=== PATIENT | female | born 1985 | race Caucasian/White ===

== ENCOUNTER 2018-03-02 21:04 | Inpatient (IN) | payer MEDICAID, SELFPAY ==
[2018-03-02 21:06] VITALS: BP 159/119; PULSE 103; RESP 14; TEMP 37.3; O2SAT 100; BMI 22.1
--- NOTE | 2018-03-02 21:33 | ED.VISSUMM ---
- ER Visit Summary Date of Service: 03/02/18 Chief Complaint: Requesting detox for heroin abuse History of Present Illness: The patient is a 32 F history of heroin, crack and fentanyl abuse. Last use 1-2 days ago. Patient is requesting detox. States that she is having nausea and vomiting. Abdominal cramping. Profuse sweating. Myalgias and arthralgias. Mild headache. Physical Examination: Young female vital signs are stable except for elevated blood pressure 159/119. She does not look septic or toxic. She is diaphoretic. She is pale. She is actively nauseated holding a emesis bag to her mouth. HEENT exam unremarkable. Neck nontender. No lymphadenopathy. Lungs clear to auscultation bilaterally. Heart tachycardic rate about 105. No murmur. Regular rhythm. Abdomen is soft and nontender. Nondistended. Normal bowel sounds. No peritoneal signs. Moving all 4 extremities. Neurovascular intact. Calves nontender. No edema. Neurologically awake and alert. Anxious. No focal motor deficits. Test Results: None Emergency Department Course and Treatment: Patient's exam and history are consistent with acute withdrawal. She will be admitted for detox. Her CIWA score equals 28. Treatment Plan: Inpatient detox Disposition: I spoke to the hospitalist about admission. Impression: Acute opiate withdrawal History of heroin, crack and fentanyl abuse Requesting detox This note was generated with [employer] dictation software. It may contain incorrect words, spelling, and punctuation that were not noted in review of the chart prior to signing ED Disposition - Plan for ED Patient: Chief Complaint: Substance Abuse Referrals: NOT,DEFINED [Primary Care Provider] -
--- NOTE | 2018-03-02 21:37 | ED.DCSUM_ITS ---
- ER Visit Summary Date of Service: 03/02/18 Chief Complaint: Requesting detox for heroin abuse History of Present Illness: The patient is a 32 F history of heroin, crack and fentanyl abuse. Last use 1-2 days ago. Patient is requesting detox. States that she is having nausea and vomiting. Abdominal cramping. Profuse sweating. Myalgias and arthralgias. Mild headache. Physical Examination: Young female vital signs are stable except for elevated blood pressure 159/119. She does not look septic or toxic. She is diaphoretic. She is pale. She is actively nauseated holding a emesis bag to her mouth. HEENT exam unremarkable. Neck nontender. No lymphadenopathy. Lungs clear to auscultation bilaterally. Heart tachycardic rate about 105. No murmur. Regular rhythm. Abdomen is soft and nontender. Nondistended. Normal bowel sounds. No peritoneal signs. Moving all 4 extremities. Neurovascular intact. Calves nontender. No edema. Neurologically awake and alert. Anxious. No focal motor deficits. Test Results: None Emergency Department Course and Treatment: Patient's exam and history are consistent with acute withdrawal. She will be admitted for detox. Her CIWA score equals 28. Treatment Plan: Inpatient detox Disposition: I spoke to the hospitalist about admission. Impression: Acute opiate withdrawal History of heroin, crack and fentanyl abuse Requesting detox This note was generated with [employer] dictation software. It may contain incorrect words, spelling, and punctuation that were not noted in review of the chart pr ior to signing ED Disposition - Plan for ED Patient: Chief Complaint: Substance Abuse Referrals: NOT,DEFINED [Primary Care Provider] -
--- NOTE | 2018-03-02 21:39 | ED.RN ---
pt states that she does not take any medication on a regular basis
[2018-03-02] MEDS: Ondansetron ODT 4 MG Tablet PO (21:44)
--- NOTE | 2018-03-02 22:12 | PCM.HP.STD ---
Problem List (1) Opioid withdrawal Status: Acute History of Present Illness Date of Admission: 03/02/18 Chief Complaint: Agitation The patient is a 32 year old F with no PMH presenting for opioid withdrawal. She last injected heroin yesterday morning which was the first time she had ever injected heroin, she usually snorts. She has also used crack which she states is why she picks at her arms. She presents for detox and rehab because she is at risk of losing custody of her 4 kids. On presentation to the ER, she had nausea and an episode of vomiting as well as sweating and agitation. Past Medical History Allergies Penicillins [PCN] Allergy (Verified 03/02/18 21:21) Anaphylaxis Sulfa (Sulfonamide Antibiotics) Allergy (Verified 03/02/18 21:21) Anaphylaxis Home Medications: Ambulatory Orders Medication Instructions Recorded NK 03/02/18 Smoking Status: Current every day smoker Drugs: Heroin, - - Crack - *Family History Maternal History Items: No pertinent history Review of Systems Constitutional: Denies: Chills, Fever, Weight Change HEENT: Reports: Head Aches. Denies: Sinus Congestion, Sinus Drainage Cardiovascular: Denies: Chest Pain, Palpitations Respiratory: Denies: Cough, Shortness of breath at rest, Sputum production Gastrointestinal: Reports: Abdominal Pain. Denies: Nausea, Vomiting Genitourinary: Denies: Dysuria Musculoskeletal: Denies: Joint Pain, Joint Tenderness Skin: Reports: Lesions. Denies: Rash, Wounds Neurological: Denies: Numbness, Tingling, Focal weakness Psychiatric: Reports: Anxiety, Depression, - Hematologic/ Lymphatic: Denies: Easy Bruising, Easy Bleeding VTE Information - Inpt Only VTE Present on Admission: No Patient Problems: Active and Suspected Problems Opioid withdrawal (Acute) - Physical Exam General: Alert, Oriented x3, Cooperative, - - shaky HEENT: Atraumatic, PERRLA, EOMI, Normocephalic Oral: Moist Mucosa Neck: Supple, No JVD Lungs: Clear to auscultation, Normal air movement, No rhonchi, No wheeze, No rales Cardiovascular: Regular rate, Regular Rhythm, Normal S1, Normal S2, No murmurs Abdomen: Soft, Non Tender, Non-Distended, No Hepato-splenomegaly Extremities: No edema, Capillary Refill Less than 3 Seconds Skin: - - multiple excoriations in varying degrees of healing Musculoskeletal: No Tenderness to Palpation of Joints or Extremities Neurological: Neuro grossly intact, Sensory exam intact to light touch and pain Psych/Mental Status: Agitated, Anxious Vital Signs Temp Pulse Resp BP Pulse Ox 99.1 F 103 H 14 159/119 H 100 03/02/18 21:06 03/02/18 21:06 03/02/18 21:06 03/02/18 21:06 03/02/18 21:06 Oxygen Delivery Method Room Air Weight: 117 lb Body Mass Index (BMI) 22.1 Assessment/Plan All Active Problems Opioid withdrawal (Acute) 1. Opioid withdrawal - Will initiate the opioid withdrawal protocol with buprenorphine taper and librium prn - New vision will see in the am - She states that her mother has set up inpatient rehab when she is discharged DVT: Ambulate Diet: Regular Code Visit Inpatient E&M: 00820 Init Hosp L2
[2018-03-02] MEDS: Buprenorphine HCl 2 MG TAB.SUBL SL (22:52)
[2018-03-02 22:53] VITALS: BMI 21.8
[2018-03-02 22:59] VITALS: BMI 21.8
[2018-03-02 23:03] VITALS: BP 135/96; PULSE 80; RESP 16; TEMP 36.7
[2018-03-03 02:28] LABS: Mucous, Urine 0 SEEN /hpf (<or=2+)
[2018-03-03 02:30] LABS: Color, Urine Yellow (Yellow); Glucose, Dipstick Normal (Normal); Internal QC Validated? YES +Cl - CLEAR BKGD; Ketone-Dipstick Negative (Negative); Leukocyte Esterase-Dipstick 500 /ul (Negative); Nitrite-Dipstick Negative (Negative); Occult Blood-Urine 25 /ul (Negative); Protein-Dipstick 15 mg/dl (Negative); Specific Gravity, Urine 1.015 (1.002-1.030); Urine Bilirubin Dipstick Negative (Negative); Urine Clarity Cloudy (Clear); Urine Urobilinogen Normal (Normal); Urine pH 6.5 (5.0 - 8.0)
[2018-03-03 02:31] LABS: Pregnancy, Urine Negative Negative
[2018-03-03 02:36] LABS: Bacteria 1+ /hpf (None Seen); Red Blood Cells-Urine 0-5 SEEN /hpf (0-5); Squamous Epithelial Cells - UA 10-25 SEEN /hpf (5-10); White Blood Cells 25-50 SEEN /hpf (0-5)
[2018-03-03 02:42] LABS: Amphetamine Urine VISTA NEGATIVE (<1000 ng/mL); Barbiturate Urine VISTA POSITIVE (< 200 ng/mL); Benzodiazepine Urine VISTA NEGATIVE (< 200 ng/mL); Cocaine Urine VISTA POSITIVE (< 300 ng/mL); Ecstacy Urine VISTA NEGATIVE (< 500 ng/mL); Methadone Urine VISTA NEGATIVE (< 300 ng/mL); PCP Urine VISTA NEGATIVE (< 25 ng/mL); THC Urine VISTA NEGATIVE (< 50 ng/mL); Vista UDS pH Range 7
[2018-03-03 03:09] VITALS: BP 134/65; PULSE 77; RESP 14; TEMP 36.8
[2018-03-03] MEDS: cloNIDine HCl 0.1 MG Tablet PO ×2 (03:10→18:47)
[2018-03-03] MEDS: chlordiazePOXIDE 25 MG Capsule PO ×2 (03:10→18:45)
[2018-03-03] MEDS: Methocarbamol 750 MG Tablet PO ×2 (03:10→14:12)
[2018-03-03 07:07] VITALS: BP 97/56; PULSE 72; RESP 16; TEMP 36.4
[2018-03-03] MEDS: Buprenorphine HCl 2 MG TAB.SUBL SL ×3 (07:09→21:24)
[2018-03-03 07:25] LABS: Absolute Lymphocyte Count 2.85 X10^3/ul (0.83-4.51); Absolute Neutrophil Count 2.8 X10^3/uL (2.0-7.7); Basophil# 0.04 X10^3/uL; Basophil% 0.6 % (0-1); Eosinophil# 0.59 X10^3/uL; Eosinophils% 8.3 % (0-5); Hematocrit 34.6 % (37-47); Hemoglobin 11.6 g/dl (12.0-15.0); Lymphocyte # 2.85 X10^3/ul (4.0); Lymphocyte % 39.9 % (19-41); Mean Corp Hgb Conc 33.5 g/gl (32-36); Mean Corpuscular Hgb 28.1 pg (27.0-32.0); Mean Corpuscular Volume 83.8 fL (81-99); Mean Platelet Vol. 9.2 fl (6.2-12.0); Monocyte# 0.86 X10^3/uL; Neutrophil # 2.81 X10^3/uL (2.7-7.7); Neutrophil % 39.2 % (47-70); Platelet Count 373 K/mm3 (150-450); RBC Distribution Width CV 15.5 % (11.6-14.6); RBC Distribution Width SD 46.9 fl (35.1-43.9); Red Blood Count 4.13 M/mm3 (4.2-5.4); White Blood Count 7.2 K/mm3 (4.4-11.0)
[2018-03-03 07:31] LABS: POSITIVE COUNT NO; POSITIVE DIFFERENTIAL NO; POSITIVE MORPHOLOGY NO
[2018-03-03] MEDS: hydrOXYzine PAM 25 MG Capsule 50 MG PO ×2 (07:39→14:12)
[2018-03-03 07:44] LABS: Anion Gap 6 (5-15); BUN 15 mg/dL (7-18); BUN/Creat Ratio 22.4 RATIO (10-20); Calcium,Total 8.6 mg/dL (8.5-10.1); Chloride 102 mmol/L (98-107); Creatinine, Serum 0.67 mg/dL (0.55-1.02); EST Glomerular Filtration Rate 108 mL/min (>60); Est Glom Filt Rate - Afr Amer 131 mL/min (>60); Estimated Creatinine Clearance 90.96 ml/min; Glucose 78 mg/dL (74-106); Potassium 3.7 mmol/L (3.5-5.1); Sodium Level 140 mmol/L (136-145)
--- NOTE | 2018-03-03 07:48 | PCM.PN.HOSP ---
Patient Problems: Active and Suspected Problems Opioid withdrawal (Acute) Subjective: Patient is a 32-year-old gentleman with history of opioid dependence who presented with lower extremity cramps as well as abdominal pain. An assessment of acute opioid withdrawal was made patient admitted to regular nursing floor for subsequent management. Diagnostic data obtained on admission consistent with UTI. Patient seen this morning still complains of abdominal cramps as well as leg pain. Objective: GENERAL:Somewhat lethargic HEENT: Atraumatic; moist oral mucosa EYES; Anicteric, Normal Conjunctiva NECK; supple, normal thyroid, no distended JVD. RESPIRATORY: Diminished to auscultation bilaterally, CARDIOVASCULAR: Regular S1 S2, no audible murmurs GI: soft, non-tender, normoactive bowel sounds, : No Renal angle tenderness; No kc EXTREMITIES: No edema, no clubbing, no cyanosis. MUSCULOSKELTAL: No Joint Tenderness; no muscle waisting NEURO: Awake; no lateralizing signs. SKIN: No Rash PSYCH; Normal affect Vitals/I&O's: Vital Signs Temp Pulse Resp BP Pulse Ox 97.5 F L 72 16 97/56 L 100 03/03/18 07:07 03/03/18 07:07 03/03/18 07:07 03/03/18 07:07 03/02/18 21:06 Oxygen Delivery Method Room Air Weight: 52.4 kg Body Mass Index (BMI) 21.8 Intake and Output for Last 24 Hours 03/01/18 03/02/18 03/03/18 23:59 23:59 23:59 Intake Total 240 / 240 Balance 240 / 240 Laboratory Results 03/03/18 01:45: Urine Opiates Screen NEGATIVE, Urine Methadone Screen NEGATIVE, Ur Barbiturates Screen POSITIVE H, Ur Phencyclidine Scrn NEGATIVE, Ur Amphetamines Screen NEGATIVE, U Methamphetamin-MDMA NEGATIVE, U Benzodiazepines Scrn NEGATIVE, Urine Cocaine Screen POSITIVE H, U Cannabinoids Screen NEGATIVE, Ur Drug Screen Comment 03/03/18 01:45: Urine Test Negative 03/03/18 01:45: Urine Color Yellow, Urine Clarity Cloudy, Urine pH 6.5, Ur Specific [place] 1.015, Urine Protein 15 H, Urine Glucose (UA) Normal, Urine Ketones Negative, Urine Occult Blood 25 H, Urine Nitrite Negative, Urine Bilirubin Negative, Urine Urobilinogen Normal, Ur Leukocyte Esterase 500 H, Urine RBC 0-5 SEEN, Urine WBC 25-50 SEEN, Ur Squamous Epith Cells 10-25 SEEN, Urine Bacteria 1+, Urine Mucus 0 SEEN 03/03/18 07:02: WBC 7.2, RBC 4.13 L, Hgb 11.6 L, Hct 34.6 L, MCV 83.8, MCH 28.1, MCHC 33.5, RDW 15.5 H, RDW Differential 46.9 H, Plt Count 373, MPV 9.2, Immature Gran % (Auto) 0.000, Neut % (Auto) 39.2 L, Lymph % (Auto) 39.9, [place] % (Auto) 12.0 H, Eos % (Auto) 8.3 H, Baso % (Auto) 0.6, Absolute Neuts (auto) 2.8, Absolute Lymphs (auto) 2.85, Total Counted Not Reportable 03/03/18 07:02: Sodium 140, Potassium 3.7, Chloride 102, Carbon Dioxide 32.0, Anion Gap 6, BUN 15, Creatinine 0.67, Estim Creat Clear Calc 90.96, Est GFR (MDRD) Af Amer 131, Est GFR (MDRD) Non-Af 108, BUN/Creatinine Ratio 22.4 H, Glucose 78, Calcium 8.6 Current Medications Buprenorphine HCl (Buprenorphine Hcl) 4 mg SL Q8H [facility]; Taper Stop: 03/06/18 02:14 Last Admin: 03/03/18 07:09 Dose: 4 mg Chlordiazepoxide (Librium) 25 mg PO Q6H PRN PRN PRN Reason: Moderate-Severe Anxiety Last Admin: 03/03/18 03:10 Dose: 25 mg Ciprofloxacin HCl (Cipro) 500 mg PO BID [facility] Clonidine (Catapres) 0.1 mg PO Q2H PRN PRN PRN Reason: Hot/Cold Sweats or Anxiety Last Admin: 03/03/18 03:10 Dose: 0.1 mg Dicyclomine HCl (Bentyl) 20 mg PO Q6H PRN PRN PRN Reason: Abdomnial Discomfort Hydroxyzine HCl (Vistaril Vial) 50 mg IM Q6H PRN PRN PRN Reason: Breakthrough Anxiety Hydroxyzine Pamoate (Vistaril Pamoate Capsule) 50 mg PO Q6H PRN PRN PRN Reason: Mild Anxiety Last Admin: 03/03/18 07:39 Dose: 50 mg Magnesium Hydroxide (Milk Of Magnesia) 30 ml PO DAILY PRN PRN PRN Reason: Constipation Methocarbamol (Methocarbamol) 750 mg PO Q6H PRN PRN PRN Reason: Muscle Aches Last Admin: 03/03/18 03:10 Dose: 750 mg Nutritional Formula (Lactose Free) (Ensure Enlive) 120 ml PO 4X/DAY [facility] Ondansetron HCl (Zofran) 4 mg PO Q8H PRN PRN PRN Reason: NAUSEA Pramipexole Dihydrochloride (Mirapex) 0.25 mg PO Q12H PRN PRN PRN Reason: Restless Legs Medical Necessity - Tobacco Use Smoking Status: Current every day smoker Tobacco Use: Cigarettes Assessment/Plan All Active Problems Opioid withdrawal (Acute) Patient is a 32-year-old gentleman with history of opioid dependence who presented with lower extremity cramps as well as abdominal pain. An assessment of acute opioid withdrawal was made patient admitted to regular nursing floor for subsequent management 1. Acute opioid withdrawal: Patient has been admitted to regular nursing floor for medical stabilization using Subutex 2. Acute cystitis patient started on p.o. ciprofloxacin 3. Polysubstance abuse including cocaine and heroin patient counseled on cessation 4. Tobacco dependence counseled on cessation, offered nicotine patch for tobacco cravings 5. DVT prophylaxis; low risk did encourage early ambulation Active Medications Buprenorphine HCl (Buprenorphine Hcl) 4 mg SL Q8H [facility]; Taper Stop: 03/06/18 02:14 Last Admin: 03/03/18 07:09 Dose: 4 mg Chlordiazepoxide (Librium) 25 mg PO Q6H PRN PRN PRN Reason: Moderate-Severe Anxiety Last Admin: 03/03/18 03:10 Dose: 25 mg Ciprofloxacin HCl (Cipro) 500 mg PO BID [facility] Clonidine (Catapres) 0.1 mg PO Q2H PRN PRN PRN Reason: Hot/Cold Sweats or Anxiety Last Admin: 03/03/18 03:10 Dose: 0.1 mg Dicyclomine HCl (Bentyl) 20 mg PO Q6H PRN PRN PRN Reason: Abdomnial Discomfort Hydroxyzine HCl (Vistaril Vial) 50 mg IM Q6H PRN PRN PRN Reason: Breakthrough Anxiety Hydroxyzine Pamoate (Vistaril Pamoate Capsule) 50 mg PO Q6H PRN PRN PRN Reason: Mild Anxiety Last Admin: 03/03/18 07:39 Dose: 50 mg Magnesium Hydroxide (Milk Of Magnesia) 30 ml PO DAILY PRN PRN PRN Reason: Constipation Methocarbamol (Methocarbamol) 750 mg PO Q6H PRN PRN PRN Reason: Muscle Aches Last Admin: 03/03/18 03:10 Dose: 750 mg Nicotine (Nicoderm Cq (Pbkc)) 21 mg TRANSDERM. DAILY [facility] Nutritional Formula (Lactose Free) (Ensure Enlive) 120 ml PO 4X/DAY [facility] Ondansetron HCl (Zofran Odt) 4 mg PO Q8H PRN PRN PRN Reason: NAUSEA Pramipexole Dihydrochloride (Mirapex) 0.25 mg PO Q12H PRN PRN PRN Reason: Restless Legs Code Visit Inpatient E&M: 70696 Subs Hosp L2
[2018-03-03] MEDS: Ciprofloxacin 500 MG Tablet PO ×2 (07:52→21:25)
[2018-03-03] MEDS: Pramipexole Di-HCl 0.25 MG Tablet PO (07:52)
[2018-03-03] MEDS: Dicyclomine 10 MG Capsule 20 MG PO ×2 (07:52→18:45)
[2018-03-03] MEDS: Ondansetron ODT 4 MG Tablet PO ×2 (08:41→21:27)
[2018-03-03 11:07] VITALS: BP 93/52; PULSE 74; RESP 16; TEMP 36.7
[2018-03-03 14:08] VITALS: BP 96/54; PULSE 78; RESP 16; TEMP 36.4
[2018-03-03] MEDS: Phenazopyridine 95 MG Tablet PO ×2 (14:10→21:25)
[2018-03-03 18:44] VITALS: BP 104/51; PULSE 78; RESP 16; TEMP 36.7
[2018-03-03 21:31] VITALS: BP 88/44; PULSE 65; RESP 16; TEMP 36.7; O2SAT 99
--- NOTE | 2018-03-03 22:02 | NURSING ---
pt in brother in laws room.
[2018-03-04 01:51] VITALS: BP 93/47; PULSE 72; RESP 16; TEMP 36.8; O2SAT 98
[2018-03-04] MEDS: Buprenorphine HCl 2 MG TAB.SUBL SL ×2 (06:10→15:29)
[2018-03-04] MEDS: Phenazopyridine 95 MG Tablet PO ×2 (06:11→15:29)
--- NOTE | 2018-03-04 07:28 | PCM.PN.HOSP ---
Patient Problems: Active and Suspected Problems Opioid withdrawal (Acute) Subjective: Patient seen still complains of lower abdominal cramps. Pyridium was added to her treatment as a result of dysuria the day prior Objective: GENERAL: Cooperative HEENT: Atraumatic; moist oral mucosa EYES; Anicteric, Normal Conjunctiva NECK; supple, normal thyroid, no distended JVD. RESPIRATORY: Diminished to auscultation bilaterally, CARDIOVASCULAR: Regular S1 S2, no audible murmurs GI: soft, non-tender, normoactive bowel sounds, : No Renal angle tenderness; No kc EXTREMITIES: No edema, no clubbing, no cyanosis. MUSCULOSKELETAL: No Joint Tenderness; no muscle waisting NEURO: Awake; no lateralizing signs. SKIN: No Rash PSYCH; Normal affect Vitals/I&O's: Vital Signs Temp Pulse Resp BP Pulse Ox 98.2 F 72 16 93/47 L 98 03/04/18 01:51 03/04/18 01:51 03/04/18 01:51 03/04/18 01:51 03/04/18 01:51 Oxygen Delivery Method Room Air Weight: 52.4 kg Body Mass Index (BMI) 21.8 Intake and Output for Last 24 Hours 03/02/18 03/03/18 03/04/18 23:59 23:59 23:59 Intake Total 240 / 240 Balance 240 / 240 Laboratory Results 03/03/18 07:02: WBC 7.2, RBC 4.13 L, Hgb 11.6 L, Hct 34.6 L, MCV 83.8, MCH 28.1, MCHC 33.5, RDW 15.5 H, RDW Differential 46.9 H, Plt Count 373, MPV 9.2, Immature Gran % (Auto) 0.000, Neut % (Auto) 39.2 L, Lymph % (Auto) 39.9, [place] % (Auto) 12.0 H, Eos % (Auto) 8.3 H, Baso % (Auto) 0.6, Absolute Neuts (auto) 2.8, Absolute Lymphs (auto) 2.85, Total Counted Not Reportable 03/03/18 07:02: Sodium 140, Potassium 3.7, Chloride 102, Carbon Dioxide 32.0, Anion Gap 6, BUN 15, Creatinine 0.67, Estim Creat Clear Calc 90.96, Est GFR (MDRD) Af Amer 131, Est GFR (MDRD) Non-Af 108, BUN/Creatinine Ratio 22.4 H, Glucose 78, Calcium 8.6 Current Medications Buprenorphine HCl (Buprenorphine Hcl) 2 mg SL Q8H [facility]; Taper Stop: 03/06/18 02:14 Last Admin: 03/04/18 06:10 Dose: 2 mg Chlordiazepoxide (Librium) 25 mg PO Q6H PRN PRN PRN Reason: Moderate-Severe Anxiety Last Admin: 03/03/18 18:45 Dose: 25 mg Ciprofloxacin HCl (Cipro) 500 mg PO BID [facility] Last Admin: 03/03/18 21:25 Dose: 500 mg Clonidine (Catapres) 0.1 mg PO Q2H PRN PRN PRN Reason: Hot/Cold Sweats or Anxiety Last Admin: 03/03/18 18:47 Dose: 0.1 mg Dicyclomine HCl (Bentyl) 20 mg PO Q6H PRN PRN PRN Reason: Abdomnial Discomfort Last Admin: 03/03/18 18:45 Dose: 20 mg Hydroxyzine HCl (Vistaril Vial) 50 mg IM Q6H PRN PRN PRN Reason: Breakthrough Anxiety Hydroxyzine Pamoate (Vistaril Pamoate Capsule) 50 mg PO Q6H PRN PRN PRN Reason: Mild Anxiety Last Admin: 03/03/18 14:12 Dose: 50 mg Magnesium Hydroxide (Milk Of Magnesia) 30 ml PO DAILY PRN PRN PRN Reason: Constipation Methocarbamol (Methocarbamol) 750 mg PO Q6H PRN PRN PRN Reason: Muscle Aches Last Admin: 03/03/18 14:12 Dose: 750 mg Nicotine (Nicoderm Cq (Pbkc)) 21 mg TRANSDERM. DAILY [facility] Last Admin: 03/03/18 08:41 Dose: 21 mg Nutritional Formula (Lactose Free) (Ensure Enlive) 120 ml PO 4X/DAY [facility] Last Admin: 03/03/18 21:25 Dose: 120 ml Ondansetron HCl (Zofran Odt) 4 mg PO Q8H PRN PRN PRN Reason: NAUSEA Last Admin: 03/03/18 21:27 Dose: 4 mg Phenazopyridine HCl (Azo Standard) 95 mg PO TID [facility] Stop: 03/05/18 06:01 Last Admin: 03/04/18 06:11 Dose: 95 mg Pramipexole Dihydrochloride (Mirapex) 0.25 mg PO Q12H PRN PRN PRN Reason: Restless Legs Last Admin: 03/03/18 07:52 Dose: 0.25 mg Medical Necessity - Tobacco Use Smoking Status: Current every day smoker Tobacco Use: Cigarettes Assessment/Plan All Active Problems Opioid withdrawal (Acute) Patient is a 32-year-old lady with history of opioid dependence who presented with lower extremity cramps as well as abdominal pain. An assessment of acute opioid withdrawal was made patient admitted to regular nursing floor for subsequent management 1. Acute opioid withdrawal: Patient has been admitted to regular nursing floor for medical stabilization using Subutex 2. Acute cystitis patient started on p.o. ciprofloxacin 3. Polysubstance abuse including cocaine and heroin patient counseled on cessation 4. Tobacco dependence counseled on cessation, offered nicotine patch for tobacco cravings 5. DVT prophylaxis; low risk did encourage early ambulation Active Medications Buprenorphine HCl (Buprenorphine Hcl) 4 mg SL Q8H [facility]; Taper Stop: 03/06/18 02:14 Last Admin: 03/03/18 07:09 Dose: 4 mg Chlordiazepoxide (Librium) 25 mg PO Q6H PRN PRN PRN Reason: Moderate-Severe Anxiety Last Admin: 03/03/18 03:10 Dose: 25 mg Ciprofloxacin HCl (Cipro) 500 mg PO BID [facility] Clonidine (Catapres) 0.1 mg PO Q2H PRN PRN PRN Reason: Hot/Cold Sweats or Anxiety Last Admin: 03/03/18 03:10 Dose: 0.1 mg Dicyclomine HCl (Bentyl) 20 mg PO Q6H PRN PRN PRN Reason: Abdomnial Discomfort Hydroxyzine HCl (Vistaril Vial) 50 mg IM Q6H PRN PRN PRN Reason: Breakthrough Anxiety Hydroxyzine Pamoate (Vistaril Pamoate Capsule) 50 mg PO Q6H PRN PRN PRN Reason: Mild Anxiety Last Admin: 03/03/18 07:39 Dose: 50 mg Magnesium Hydroxide (Milk Of Magnesia) 30 ml PO DAILY PRN PRN PRN Reason: Constipation Methocarbamol (Methocarbamol) 750 mg PO Q6H PRN PRN PRN Reason: Muscle Aches Last Admin: 03/03/18 03:10 Dose: 750 mg Nicotine (Nicoderm Cq (Pbkc)) 21 mg TRANSDERM. DAILY [facility] Nutritional Formula (Lactose Free) (Ensure Enlive) 120 ml PO 4X/DAY [facility] Ondansetron HCl (Zofran Odt) 4 mg PO Q8H PRN PRN PRN Reason: NAUSEA Pramipexole Dihydrochloride (Mirapex) 0.25 mg PO Q12H PRN PRN PRN Reason: Restless Legs Code Visit Inpatient E&M: 38012 Subs Hosp L2
[2018-03-04 11:10] VITALS: BP 98/50; PULSE 84; RESP 16; TEMP 36.6
[2018-03-04] MEDS: Ciprofloxacin 500 MG Tablet PO (11:17)
[2018-03-04] MEDS: Methocarbamol 750 MG Tablet PO (11:18)
[2018-03-04] MEDS: hydrOXYzine PAM 25 MG Capsule 50 MG PO (11:18)
[2018-03-04] MEDS: Pramipexole Di-HCl 0.25 MG Tablet PO (11:18)
[2018-03-04 15:25] VITALS: BP 125/78; PULSE 85; RESP 16; TEMP 36.7
[2018-03-04] MEDS: cloNIDine HCl 0.1 MG Tablet PO ×2 (15:28→19:59)
[2018-03-04] MEDS: chlordiazePOXIDE 25 MG Capsule PO (15:29)
[2018-03-04 20:00] VITALS: BP 105/51; PULSE 76; RESP 16; TEMP 36.6; O2SAT 99
--- NOTE | 2018-03-04 20:54 | NURSING ---
PATIENT SIGNED AMA DOCUMENT; STATED SHE IS BEING ADMITTED TO A 30 DAY INPATIENT REHAB FACILITY ON 03/05, THAT HER KIDS ARE BEING TAKEN AWAY FROM HER SO SHE WANTED TO SPEND ONE LAST NIGHT WITH THEM. PATIENT CALLED FOR A RIDE AND LEFT.
== END 2018-03-04 21:00 | disposition left against medical advice (07) | DRG 433 ==
LOC: ED 21:45 → MS2 21:54
PROVIDERS: Admitting Provider Family Medicine; Emergency Provider Emergency Medicine; Visit Provider Internal Medicine
DX: F11.23 Opioid dependence with withdrawal (principal); N30.00 Acute cystitis without hematuria; F17.210 Nicotine dependence, cigarettes, uncomplicated
CPT/HCPCS: 36415; 80048; 80307; 81001; 81025; 85025; 87086; 87088; 97802; 99281; 99406; A4216

== ENCOUNTER 2018-03-18 12:58 | Inpatient (IN) | payer MEDICAID, SELFPAY ==
[2018-03-18 12:59] VITALS: BP 159/116; PULSE 120; RESP 16; TEMP 36.9; O2SAT 100; BMI 21.9
[2018-03-18] MEDS: cloNIDine HCl 0.1 MG Tablet PO ×4 (13:38→23:06)
[2018-03-18] MEDS: Ibuprofen 600 MG Tablet PO (13:38)
[2018-03-18] MEDS: DiphenhydrAMINE 25 MG Capsule PO (13:39)
[2018-03-18 13:55] LABS: Absolute Lymphocyte Count 1.31 X10^3/ul (0.83-4.51); Basophil# 0.03 X10^3/uL; Basophil% 0.5 % (0-1); Eosinophil# 0.05 X10^3/uL; Eosinophils% 0.9 % (0-5); Hematocrit 38.7 % (37-47); Hemoglobin 12.9 g/dl (12.0-15.0); Lymphocyte # 1.31 X10^3/ul (4.0); Lymphocyte % 23.2 % (19-41); Mean Corp Hgb Conc 33.3 g/gl (32-36); Mean Corpuscular Hgb 28.1 pg (27.0-32.0); Mean Corpuscular Volume 84.3 fL (81-99); Mean Platelet Vol. 9.1 fl (6.2-12.0); Monocyte# 0.21 X10^3/uL; Monocyte% 3.7 % (0-10); Neutrophil # 4.03 X10^3/uL (2.7-7.7); Neutrophil % 71.5 % (47-70); Platelet Count 335 K/mm3 (150-450); RBC Distribution Width CV 15.5 % (11.6-14.6); RBC Distribution Width SD 47.5 fl (35.1-43.9); Red Blood Count 4.59 M/mm3 (4.2-5.4); White Blood Count 5.6 K/mm3 (4.4-11.0)
[2018-03-18 13:58] LABS: POSITIVE COUNT NO; POSITIVE DIFFERENTIAL NO; POSITIVE MORPHOLOGY NO
[2018-03-18 14:11] LABS: ALB/GLOB Ratio 0.8 RATIO (0.9-2.4); AST(SGOT) 17 U/L (15-37); Alanine Aminotransfer ALT/SGPT 24 U/L (13-56); Albumin, Serum 3.8 g/dL (3.2-5.0); Alkaline Phosphatase 81 U/L (45-117); Anion Gap 8 (5-15); BUN 14 mg/dL (7-18); BUN/Creat Ratio 22.1 RATIO (10-20); Calcium,Total 9.3 mg/dL (8.5-10.1); Chloride 106 mmol/L (98-107); Creatinine, Serum 0.63 mg/dL (0.55-1.02); EST Glomerular Filtration Rate 115 mL/min (>60); Est Glom Filt Rate - Afr Amer 139 mL/min (>60); Estimated Creatinine Clearance 96.74 ml/min; Globulin 4.8 g/dL (2.2-4.2); Glucose 95 mg/dL (74-106); Potassium 4.2 mmol/L (3.5-5.1); Protein, Total 8.6 g/dL (6.4-8.2); Sodium Level 143 mmol/L (136-145)
[2018-03-18 14:12] LABS: Alcohol, Blood (Medical)-Serum < 3.0 mg/dL
--- NOTE | 2018-03-18 14:14 | ED.DCSUM_ITS ---
- ER Visit Summary Date of Service: 03/18/18 Chief Complaint: Detox History of Present Illness: The patient is a 32 F who is requesting detox from heroin and crack cocaine. She would like to be admitted and transferred to [facility]. Last use of heroin was 2 days ago. She does snort heroin. She last used crack yesterday. Denies any suicidal or homicidal thoughts, but does report abdominal cramps, nausea, sweats, myalgias, chills, and anxiety. Physical Examination: Blood pressure 159/116. Heart rate 120. Afebrile. Vitals otherwise unremarkable. Patient appears anxious but in no acute distress. Heart tachycardic but regular. Lungs clear. Abdomen soft. Skin slightly pale. Test Results: Labs, tox screen, alcohol pending. Emergency Department Course and Treatment: Patient had a CINA score of 15. She was treated with Motrin, Benadryl, and clonidine while awaiting results. Workup was unremarkable except she was positive for benzos and cocaine. She said she took 1 dose of Valium that she bought. She does not use benzos or Valium regularly. No issues with withdrawal from benzodiazepines. Patient was discussed with the hospitalist and will be admitted for further care. Treatment Plan: As above Disposition: As above Impression: 1. Opioid withdrawal 2. Cocaine abuse This note was generated with [employer] dictation software. It may contain incorrect words, spelling, and punctuation that were not noted in review of the chart prior to signing ED Disposition - Plan for ED Patient: Chief Complaint: Substance Abuse Referrals: Care Physician,No Primary [Primary Care Provider] -
[2018-03-18 14:16] LABS: Pregnancy, Serum, hCG Quali. NEGATIVE Negative (0-9 Nonpreg)
[2018-03-18 14:18] LABS: Amphetamine Urine VISTA NEGATIVE (<1000 ng/mL); Barbiturate Urine VISTA NEGATIVE (< 200 ng/mL); Benzodiazepine Urine VISTA POSITIVE (< 200 ng/mL); Cocaine Urine VISTA POSITIVE (< 300 ng/mL); Ecstacy Urine VISTA NEGATIVE (< 500 ng/mL); Methadone Urine VISTA NEGATIVE (< 300 ng/mL); PCP Urine VISTA NEGATIVE (< 25 ng/mL); THC Urine VISTA NEGATIVE (< 50 ng/mL); Vista UDS pH Range 8
--- NOTE | 2018-03-18 14:35 | NURSING ---
MED SURG HEROIN WITHDRAWAL GIRMA
[2018-03-18 15:05] VITALS: BP 156/107; PULSE 109; RESP 14; O2SAT 99
--- NOTE | 2018-03-18 15:33 | PCM.HP.STD ---
Problem List (1) Opioid withdrawal Status: Acute History of Present Illness Date of Admission: 03/18/18 Chief Complaint: Opioid withdrawal This is a 32-year-old female with a history of heroin and crack abuse. Patient uses about 3 g of heroin every day. Last use was 2 days ago. Patient also uses crack cocaine and last use was 1 day ago. Patient has attempted detoxification and getting sober in the past and was last admitted here about a month and a half ago. Patient unfortunately relapsed. She presents to the emergency department with fatigue Monday muscle cramps tremulousness diaphoresis myalgias?typical of her known heroine withdrawal symptoms. Patient at this time states that she wants to get sober and would like to undergo detoxification again. [] Past Medical History Allergies Penicillins [PCN] Allergy (Verified 03/18/18 12:59) Anaphylaxis Sulfa (Sulfonamide Antibiotics) Allergy (Verified 03/18/18 12:59) Anaphylaxis Home Medications: Ambulatory Orders Medication Instructions Recorded NK 03/02/18 Smoking Status: Current every day smoker - *Family History Maternal History Items: No pertinent history Review of Systems Constitutional: Reports: Chills, Malaise, Fatigue. Denies: Anorexia Cardiovascular: Denies: Chest Pain Respiratory: Denies: Shortness of Breath Comment: All other systems reviewed and essentially negative or as above in the body of the history VTE Information - Inpt Only VTE Present on Admission: No - Physical Exam General: Alert, Oriented x3, Cooperative, - - Patient is in some distress, anxious appearing and restless HEENT: Atraumatic, PERRLA, EOMI Oral: Moist Mucosa Neck: Supple Lungs: Clear to auscultation, Normal air movement, No rhonchi, No wheeze, No rales Cardiovascular: Regular rate, Regular Rhythm, Normal S1, Normal S2, No murmurs, No Ectopic Activity Abdomen: Non-Distended Extremities: No clubbing, No edema Skin: - - Multiple hyperemic punctate papules suggestive of skin popping Neurological: Cranial nerves II-XII grossly intact, Neuro grossly intact, Motor Exam 5/5 strength throughout Psych/Mental Status: Anxious, Restless Vital Signs Temp Pulse Resp BP Pulse Ox 98.5 F 109 H 14 156/107 H 99 03/18/18 12:59 03/18/18 15:05 03/18/18 15:05 03/18/18 15:05 03/18/18 15:05 Oxygen Delivery Method Room Air Weight: 52.8 kg Body Mass Index (BMI) 21.9 Laboratory Tests Past 24 Hrs 03/18/18 03/18/18 03/18/18 13:40 13:40 13:40 WBC 5.6 RBC 4.59 Hgb 12.9 Hct 38.7 MCV 84.3 MCH 28.1 MCHC 33.3 RDW 15.5 H RDW Differential 47.5 H Plt Count 335 MPV 9.1 Immature Gran % (Auto) 0.200 Neut % (Auto) 71.5 H Lymph % (Auto) 23.2 Harper % (Auto) 3.7 Eos % (Auto) 0.9 Baso % (Auto) 0.5 Absolute Neuts (auto) 4.0 Absolute Lymphs (auto) 1.31 Total Counted Not Reportable Sodium 143 Potassium 4.2 Chloride 106 Carbon Dioxide 29.0 Anion Gap 8 BUN 14 Creatinine 0.63 Estim Creat Clear Calc 96.74 Est GFR (MDRD) Af Amer 139 Est GFR (MDRD) Non-Af 115 BUN/Creatinine Ratio 22.1 H Glucose 95 Calcium 9.3 Total Bilirubin 0.40 AST 17 ALT 24 Alkaline Phosphatase 81 Total Protein 8.6 H Albumin 3.8 Globulin 4.8 H Albumin/Globulin Ratio 0.8 L Serum , Qual Urine Opiates Screen Urine Methadone Screen Ur Barbiturates Screen Ur Phencyclidine Scrn Ur Amphetamines Screen U Methamphetamin-MDMA U Benzodiazepines Scrn Urine Cocaine Screen U Cannabinoids Screen Ur Drug Screen Comment Ethyl Alcohol < 3.0 03/18/18 03/18/18 13:40 13:40 WBC RBC Hgb Hct MCV MCH MCHC RDW RDW Differential Plt Count MPV Immature Gran % (Auto) Neut % (Auto) Lymph % (Auto) [place] % (Auto) Eos % (Auto) Baso % (Auto) Absolute Neuts (auto) Absolute Lymphs (auto) Total Counted Sodium Potassium Chloride Carbon Dioxide Anion Gap BUN Creatinine Estim Creat Clear Calc Est GFR (MDRD) Af Amer Est GFR (MDRD) Non-Af BUN/Creatinine Ratio Glucose Calcium Total Bilirubin AST ALT Alkaline Phosphatase Total Protein Albumin Globulin Albumin/Globulin Ratio Serum , Qual NEGATIVE Urine Opiates Screen NEGATIVE Urine Methadone Screen NEGATIVE Ur Barbiturates Screen NEGATIVE Ur Phencyclidine Scrn NEGATIVE Ur Amphetamines Screen NEGATIVE U Methamphetamin-MDMA NEGATIVE U Benzodiazepines Scrn POSITIVE H Urine Cocaine Screen POSITIVE H U Cannabinoids Screen NEGATIVE Ur Drug Screen Comment Ethyl Alcohol Assessment/Plan All Active Problems Opioid withdrawal (Acute) 1. Heroin/opiate withdrawal. We will institute opioid withdrawal protocol. Consult supportive employment case manager/social sciences department chair to assist with rehabilitation. 2. Polysubstance abuse with heroine cocaine and benzodiazepines. Code Visit Inpatient E&M: 91173 Init Hosp L3
[2018-03-18 16:04] VITALS: PULSE 100; BMI 21.9; BMI 22.0
[2018-03-18 16:08] VITALS: BP 152/107; PULSE 100; RESP 16; TEMP 37.1; O2SAT 100
[2018-03-18] MEDS: Buprenorphine HCl 2 MG TAB.SUBL SL ×2 (16:15→23:04)
[2018-03-18] MEDS: Dicyclomine 10 MG Capsule 20 MG PO (16:25)
[2018-03-18] MEDS: Methocarbamol 750 MG Tablet PO ×2 (16:26→23:08)
[2018-03-18 17:56] VITALS: BP 124/75; PULSE 101; RESP 16; TEMP 37.4
[2018-03-18 20:54] VITALS: BP 111/62; PULSE 85; RESP 16; TEMP 36.5; O2SAT 99
[2018-03-18] MEDS: Pramipexole Di-HCl 0.25 MG Tablet PO (21:02)
[2018-03-18] MEDS: hydrOXYzine PAM 25 MG Capsule 50 MG PO (21:02)
[2018-03-19 05:31] VITALS: BP 94/48; PULSE 66; RESP 16; TEMP 36.6; O2SAT 99
[2018-03-19 06:05] LABS: Absolute Lymphocyte Count 2.78 X10^3/ul (0.83-4.51); Basophil# 0.04 X10^3/uL; Basophil% 0.7 % (0-1); Eosinophil# 0.21 X10^3/uL; Eosinophils% 3.8 % (0-5); Hematocrit 32.8 % (37-47); Hemoglobin 10.9 g/dl (12.0-15.0); Lymphocyte # 2.78 X10^3/ul (4.0); Lymphocyte % 50.9 % (19-41); Mean Corp Hgb Conc 33.2 g/gl (32-36); Mean Corpuscular Hgb 28.4 pg (27.0-32.0); Mean Corpuscular Volume 85.4 fL (81-99); Mean Platelet Vol. 9.6 fl (6.2-12.0); Monocyte# 0.48 X10^3/uL; Monocyte% 8.8 % (0-10); Neutrophil # 1.95 X10^3/uL (2.7-7.7); Neutrophil % 35.8 % (47-70); Platelet Count 314 K/mm3 (150-450); RBC Distribution Width CV 15.1 % (11.6-14.6); RBC Distribution Width SD 45.5 fl (35.1-43.9); Red Blood Count 3.84 M/mm3 (4.2-5.4); White Blood Count 5.5 K/mm3 (4.4-11.0)
[2018-03-19 06:07] LABS: POSITIVE COUNT NO; POSITIVE DIFFERENTIAL NO; POSITIVE MORPHOLOGY NO
[2018-03-19 06:26] LABS: Anion Gap 7 (5-15); BUN 23 mg/dL (7-18); BUN/Creat Ratio 34.6 RATIO (10-20); Calcium,Total 8.5 mg/dL (8.5-10.1); Chloride 107 mmol/L (98-107); Creatinine, Serum 0.66 mg/dL (0.55-1.02); EST Glomerular Filtration Rate 109 mL/min (>60); Est Glom Filt Rate - Afr Amer 132 mL/min (>60); Estimated Creatinine Clearance 92.34 ml/min; Glucose 93 mg/dL (74-106); Potassium 3.8 mmol/L (3.5-5.1); Sodium Level 144 mmol/L (136-145)
[2018-03-19 08:36] VITALS: BP 101/57; PULSE 77; RESP 16; TEMP 36.6
[2018-03-19] MEDS: Pramipexole Di-HCl 0.25 MG Tablet PO (08:45)
[2018-03-19] MEDS: hydrOXYzine PAM 25 MG Capsule 50 MG PO (08:45)
[2018-03-19] MEDS: Methocarbamol 750 MG Tablet PO (08:45)
[2018-03-19] MEDS: cloNIDine HCl 0.1 MG Tablet PO (08:45)
[2018-03-19] MEDS: Buprenorphine HCl 2 MG TAB.SUBL SL ×2 (08:45→15:55)
--- NOTE | 2018-03-19 09:55 | PCM.PN.HOSP ---
Subjective: Patient has history of benzodiazepine and heroin use and dependence. She takes it about 10-20 mg of Valium every day for last 1 year. Also uses IV heroin. Having withdrawal symptoms including anxiety, restlessness feeling of hot and cold, abdominal cramps but denies diarrhea. Denies history of IV needle associated abscess or plastic surgery in the past. Vitals/I&O's: Vital Signs Temp Pulse Resp BP Pulse Ox 97.8 F 77 16 101/57 L 99 03/19/18 08:36 03/19/18 08:36 03/19/18 08:36 03/19/18 08:36 03/19/18 05:31 Oxygen Delivery Method Room Air Weight: 116 lb 6.465 oz Body Mass Index (BMI) 21.9 Intake and Output for Last 24 Hours 03/17/18 03/18/18 03/19/18 23:59 23:59 23:59 Intake Total 500 / 500 Balance 500 / 500 General: Alert, Oriented x3, Cooperative HEENT: Atraumatic, PERRLA, EOMI, Normocephalic Neck: Supple, No JVD, Negative Carotid Bruits Lungs: Clear to auscultation, Normal air movement Cardiovascular: Regular rate, Regular Rhythm, Normal S1, Normal S2, No murmurs Abdomen: Bowel Sounds Present, Soft, Non Tender, Non-Distended Extremities: No edema, Capillary Refill Less than 3 Seconds Skin: No rashes, No breakdown Musculoskeletal: No Tenderness to Palpation of Joints or Extremities, Arthritic Changes Neurological: Cranial nerves II-XII grossly intact, Neuro grossly intact Psych/Mental Status: Normal Affect, Appropriate Laboratory Results 03/18/18 13:40: WBC 5.6, RBC 4.59, Hgb 12.9, Hct 38.7, MCV 84.3, MCH 28.1, MCHC 33.3, RDW 15.5 H, RDW Differential 47.5 H, Plt Count 335, MPV 9.1, Immature Gran % (Auto) 0.200, Neut % (Auto) 71.5 H, Lymph % (Auto) 23.2, [place] % (Auto) 3.7, Eos % (Auto) 0.9, Baso % (Auto) 0.5, Absolute Neuts (auto) 4.0, Absolute Lymphs (auto) 1.31, Total Counted Not Reportable 03/18/18 13:40: Sodium 143, Potassium 4.2, Chloride 106, Carbon Dioxide 29.0, Anion Gap 8, BUN 14, Creatinine 0.63, Estim Creat Clear Calc 96.74, Est GFR (MDRD) Af Amer 139, Est GFR (MDRD) Non-Af 115, BUN/Creatinine Ratio 22.1 H, Glucose 95, Calcium 9.3, Total Bilirubin 0.40, AST 17, ALT 24, Alkaline Phosphatase 81, Total Protein 8.6 H, Albumin 3.8, Globulin 4.8 H, Albumin/Globulin Ratio 0.8 L 03/18/18 13:40: Ethyl Alcohol < 3.0 03/18/18 13:40: Urine Opiates Screen NEGATIVE, Urine Methadone Screen NEGATIVE, Ur Barbiturates Screen NEGATIVE, Ur Phencyclidine Scrn NEGATIVE, Ur Amphetamines Screen NEGATIVE, U Methamphetamin-MDMA NEGATIVE, U Benzodiazepines Scrn POSITIVE H, Urine Cocaine Screen POSITIVE H, U Cannabinoids Screen NEGATIVE, Ur Drug Screen Comment 03/18/18 13:40: Serum , Qual NEGATIVE 03/19/18 05:35: Sodium 144, Potassium 3.8, Chloride 107, Carbon Dioxide 30.0, Anion Gap 7, BUN 23 H, Creatinine 0.66, Estim Creat Clear Calc 92.34, Est GFR (MDRD) Af Amer 132, Est GFR (MDRD) Non-Af 109, BUN/Creatinine Ratio 34.6 H, Glucose 93, Calcium 8.5 03/19/18 05:35: WBC 5.5, RBC 3.84 L, Hgb 10.9 L, Hct 32.8 L, MCV 85.4, MCH 28.4, MCHC 33.2, RDW 15.1 H, RDW Differential 45.5 H, Plt Count 314, MPV 9.6, Immature Gran % (Auto) 0.000, Neut % (Auto) 35.8 L, Lymph % (Auto) 50.9 H, [place] % (Auto) 8.8, Eos % (Auto) 3.8, Baso % (Auto) 0.7, Absolute Neuts (auto) 2.0, Absolute Lymphs (auto) 2.78, Total Counted Not Reportable Current Medications Acetaminophen (Tylenol) 500 mg PO Q4H PRN PRN PRN Reason: Temp > 100.4 F Al Hydroxide/Mg Hydroxide (Mylanta Ii) 30 ml PO Q6H PRN PRN PRN Reason: dyspesia Bisacodyl (Dulcolax) 10 mg RECTAL DAILY PRN PRN Reason: Constipation Buprenorphine HCl (Buprenorphine Hcl) 4 mg SL Q8H [facility]; Taper Stop: 03/21/18 19:59 Last Admin: 03/19/18 08:45 Dose: 4 mg Chlordiazepoxide (Librium) 50 mg PO Q6H [facility]; Taper Stop: 03/22/18 11:29 Clonidine (Catapres) 0.1 mg PO Q2H PRN PRN PRN Reason: Hot/Cold Sweats or Anxiety Last Admin: 03/19/18 08:45 Dose: 0.1 mg Dicyclomine HCl (Bentyl) 20 mg PO Q6H PRN PRN PRN Reason: Abdomnial Discomfort Last Admin: 03/18/18 16:25 Dose: 20 mg Folic Acid (Folic Acid) [facility] Gabapentin (Neurontin) 300 mg PO Q8 [facility] Hydroxyzine Pamoate (Vistaril Pamoate Capsule) 50 mg PO Q6H PRN PRN PRN Reason: Mild Anxiety Last Admin: 03/19/18 08:45 Dose: 50 mg Ibuprofen (Motrin) 600 mg PO Q8H PRN PRN PRN Reason: Mild-Moderate Pain (1-5/10) Loperamide HCl (Imodium) 2 - 4 mg PO UD PRN PRN Reason: LOOSE STOOLS Lorazepam (Ativan) 1 mg IV Q4H PRN PRN PRN Reason: Severe Anxiety Magnesium Hydroxide (Milk Of Magnesia) 30 ml PO DAILY PRN PRN PRN Reason: Constipation Methocarbamol (Methocarbamol) 750 mg PO Q6H PRN PRN PRN Reason: Muscle Aches Last Admin: 03/19/18 08:45 Dose: 750 mg Multivitamins/Minerals (Multivitamin With Minerals) 1 tablet [facility] Nicotine (Nicoderm Cq (Pbkc)) 21 mg TRANSDERM. DAILY [facility] Ondansetron HCl (Zofran Odt) 4 mg PO Q6H PRN PRN PRN Reason: NAUSEA Pramipexole Dihydrochloride (Mirapex) 0.25 mg PO Q12H PRN PRN PRN Reason: Restless Legs Last Admin: 03/19/18 08:45 Dose: 0.25 mg Senna (Senokot) 1 tablet PO QHS PRN PRN Reason: Constipation Thiamine HCl (Vitamin B1) 100 mg PO DAILY [facility] Trazodone HCl (Desyrel) 50 mg PO QHS [facility] Medical Necessity - Tobacco Use Smoking Status: Light Smoker (<10/day) Assessment/Plan All Active Problems Opioid withdrawal (Acute) This is a 32-year-old female with history of polysubstance use including crack cocaine, IV heroin and benzodiazepine use. Patient was using 3 g of heroin every day, last use was about 2 days ago, prior to admission. Patient was further admitted for medical stabilization of and benzodiazepine and opioid withdrawal symptoms 1. Opioid/heroin use and dependence with withdrawal: On medical stabilization program for opioid use. Patient is on buprenorphine scheduled and then taper dose 2. Benzodiazepine use and dependence and withdrawal: On Librium scheduled and taper dose program. 3. Other polysubstance use including crack cocaine, nicotine use/every day smoker: On nicotine patch. 4. DVT prophylaxis: low risk, early ambulation encouraged. No prophylaxis indicated Code Visit Inpatient E&M: 80316 Subs Hosp L2
--- NOTE | 2018-03-19 10:00 | PN_ITS ---
Subjective: Patient has history of benzodiazepine and heroin use and dependence. She takes it about 10-20 mg of Valium every day for last 1 year. Also uses IV heroin. Having withdrawal symptoms including anxiety, restlessness feeling of hot and cold, abdominal cramps but denies diarrhea. Denies history of IV needle associated abscess or plastic surgery in the past. Vitals/I&O's: Vital Signs Temp Pulse Resp BP Pulse Ox 97.8 F 77 16 101/57 L 99 03/19/18 08:36 03/19/18 08:36 03/19/18 08:36 03/19/18 08:36 03/19/18 05:31 Oxygen Delivery Method Room Air Weight: 116 lb 6.465 oz Body Mass Index (BMI) 21.9 Intake and Output for Last 24 Hours 03/17/18 03/18/18 03/19/18 23:59 23:59 23:59 Intake Total 500 / 500 Balance 500 / 500 General: Alert, Oriented x3, Cooperative HEENT: Atraumatic, PERRLA, EOMI, Normocephalic Neck: Supple, No JVD, Negative Carotid Bruits Lungs: Clear to auscultation, Normal air movement Cardiovascular: Regular rate, Regular Rhythm, Normal S1, Normal S2, No murmurs Abdomen: Bowel Sounds Present, Soft, Non Tender, Non-Distended Extremities: No edema, Capillary Refill Less than 3 Seconds Skin: No rashes, No breakdown Musculoskeletal: No Tenderness to Palpation of Joints or Extremities, Arthritic Changes Neurological: Cranial nerves II-XII grossly intact, Neuro grossly intact Psych/Mental Status: Normal Affect, Appropriate Laboratory Results 03/18/18 13:40: WBC 5.6, RBC 4.59, Hgb 12.9, Hct 38.7, MCV 84.3, MCH 28.1, MCHC 33.3, RDW 15.5 H, RDW Differential 47.5 H, Plt Count 335, MPV 9.1, Immature Gran % (Auto) 0.200, Neut % (Auto) 71.5 H, Lymph % (Auto) 23.2, [place] % (Auto) 3.7, Eos % (Auto) 0.9, Baso % (Auto) 0.5, Absolute Neuts (auto) 4.0, Absolute Lymphs (auto) 1.31, Total Counted Not Reportable 03/18/18 13:40: Sodium 143, Potassium 4.2, Chloride 106, Carbon Dioxide 29.0, Anion Gap 8, BUN 14, Creatinine 0.63, Estim Creat Clear Calc 96.74, Est GFR (MDRD) Af Amer 139, Est GFR (MDRD) Non-Af 115, BUN/Creatinine Ratio 22.1 H, Glucose 95, Calcium 9.3, Total Bilirubin 0.40, AST 17, ALT 24, Alkaline Phosphatase 81, Total Protein 8.6 H, Albumin 3.8, Globulin 4.8 H, Albumin/Globulin Ratio 0.8 L 03/18/18 13:40: Ethyl Alcohol < 3.0 03/18/18 13:40: Urine Opiates Screen NEGATIVE, Urine Methadone Screen NEGATIVE, Ur Barbiturates Screen NEGATIVE, Ur Phencyclidine Scrn NEGATIVE, Ur Amphetamines Screen NEGATIVE, U Methamphetamin-MDMA NEGATIVE, U Benzodiazepines Scrn POSITIVE H, Urine Cocaine Screen POSITIVE H, U Cannabinoids Screen NEGATIVE, Ur Drug Screen Comment 03/18/18 13:40: Serum , Qual NEGATIVE 03/19/18 05:35: Sodium 144, Potassium 3.8, Chloride 107, Carbon Dioxide 30.0, Anion Gap 7, BUN 23 H, Creatinine 0.66, Estim Creat Clear Calc 92.34, Est GFR (MDRD) Af Amer 132, Est GFR (MDRD) Non-Af 109, BUN/Creatinine Ratio 34.6 H, Glucose 93, Calcium 8.5 03/19/18 05:35: WBC 5.5, RBC 3.84 L, Hgb 10.9 L, Hct 32.8 L, MCV 85.4, MCH 28.4, MCHC 33.2, RDW 15.1 H, RDW Differential 45.5 H, Plt Count 314, MPV 9.6, Immature Gran % (Auto) 0.000, Neut % (Auto) 35.8 L, Lymph % (Auto) 50.9 H, [place] % (Auto) 8.8, Eos % (Auto) 3.8, Baso % (Auto) 0.7, Absolute Neuts (auto) 2.0, Absolute Lymphs (auto) 2.78, Total Counted Not Reportable Current Medications Acetaminophen (Tylenol) 500 mg PO Q4H PRN PRN PRN Reason: Temp > 100.4 F Al Hydroxide/Mg Hydroxide (Mylanta Ii) 30 ml PO Q6H PRN PRN PRN Reason: dyspesia Bisacodyl (Dulcolax) 10 mg RECTAL DAILY PRN PRN Reason: Constipation Buprenorphine HCl (Buprenorphine Hcl) 4 mg SL Q8H [facility]; Taper Stop: 03/21/18 19:59 Last Admin: 03/19/18 08:45 Dose: 4 mg Chlordiazepoxide (Librium) 50 mg PO Q6H [facility]; Taper Stop: 03/22/18 11:29 Clonidine (Catapres) 0.1 mg PO Q2H PRN PRN PRN Reason: Hot/Cold Sweats or Anxiety Last Admin: 03/19/18 08:45 Dose: 0.1 mg Dicyclomine HCl (Bentyl) 20 mg PO Q6H PRN PRN PRN Reason: Abdomnial Discomfort Last Admin: 03/18/18 16:25 Dose: 20 mg [facility]) [facility] Gabapentin (Neurontin) 300 mg PO Q8 [facility] Hydroxyzine Pamoate (Vistaril Pamoate Capsule) 50 mg PO Q6H PRN PRN PRN Reason: Mild Anxiety Last Admin: 03/19/18 08:45 Dose: 50 mg Ibuprofen (Motrin) 600 mg PO Q8H PRN PRN PRN Reason: Mild-Moderate Pain (1-5/10) Loperamide HCl (Imodium) 2 - 4 mg PO UD PRN PRN Reason: LOOSE STOOLS Lorazepam (Ativan) 1 mg IV Q4H PRN PRN PRN Reason: Severe Anxiety Magnesium Hydroxide (Milk Of Magnesia) 30 ml PO DAILY PRN PRN PRN Reason: Constipation Methocarbamol (Methocarbamol) 750 mg PO Q6H PRN PRN PRN Reason: Muscle Aches Last Admin: 03/19/18 08:45 Dose: 750 mg Multivitamins/Minerals ([facility]ivitamin With Minerals) [facility] Nicotine (Nicoderm Cq (Pbkc)) 21 mg TRANSDERM. DAILY [facility] Ondansetron HCl (Zofran Odt) 4 mg PO Q6H PRN PRN PRN Reason: NAUSEA Pramipexole Dihydrochloride (Mirapex) 0.25 mg PO Q12H PRN PRN PRN Reason: Restless Legs Last Admin: 03/19/18 08:45 Dose: 0.25 mg Senna (Senokot) 1 tablet PO QHS PRN PRN Reason: Constipation Thiamine HCl (Vitamin B1) 100 mg PO DAILY [facility] Trazodone HCl (Desyrel) 50 mg PO QHS [facility] Medical Necessity - Tobacco Use Smoking Status: Light Smoker (<10/day) Assessment/Plan All Active Problems Opioid withdrawal (Acute) This is a 32-year-old female with history of polysubstance use including crack cocaine, IV heroin and benzodiazepine use. Patient was using 3 g of heroin every day, last use was about 2 days ago, prior to admission. Patient was further admitted for medical stabilization of and benzodiazepine and opioid withdrawal symptoms 1. Opioid/heroin use and dependence with withdrawal: On medical stabilization program for opioid use. Patient is on buprenorphine scheduled and then taper dose 2. Benzodiazepine use and dependence and withdrawal: On Librium scheduled and taper dose program. 3. Other polysubstance use including crack cocaine, nicotine use/every day smoker: On nicotine patch. 4. DVT prophylaxis: low risk, early ambulation encouraged. No prophylaxis indicated Code Visit Inpatient E&M: 46117 Subs Hosp L2
--- NOTE | 2018-03-19 11:28 | NURSING ---
Jordan from [facility] to see the patient. Not appropriate for the program because she just left 9/30 AMA. Jordan offered to help arrange for discharge rehab plans. She wanted him to call a facility that said she wasn't allowed to come back and make them take her. Explained that she needs another option-if they refused to accept her- he can't make them. Patient stated to Jordan that her mom can call then. she didn't need him to call.
--- NOTE | 2018-03-19 12:02 | CASEMGMT ---
Addendum entered by Nydia Teran 03/19/18 14:08: SW attempted to check in with pt to see if she had any questions or needed extra resources but pt soundly sleeping. SW to continue to follow along to assist with any discharge needs. Original Note: Social Work Note Charge Nurse Ines informed this worker that Jordan from [facility] saw pt and pt not appropriate for [facility] but that Jordan provided resources to pt and pt's mom will be arranging outpatient services for pt. SW to continue to follow along in the event additional needs or concerns arise. Nydia Teran MEAT WASHER, WEBBING INSPECTOR
[2018-03-19] MEDS: Thiamine Hydrochloride 100 MG Tablet PO (12:27)
[2018-03-19] MEDS: Multivitamins,Ther W-Minerals Tablet 1 TABLET PO (12:27)
[2018-03-19] MEDS: Folic Acid 1 MG Tablet PO (12:27)
[2018-03-19] MEDS: Gabapentin 300 MG Capsule PO (12:27)
[2018-03-19] MEDS: chlordiazePOXIDE 25 MG Capsule 50 MG PO (12:31)
[2018-03-19 12:35] VITALS: BP 107/53; PULSE 72; RESP 16; TEMP 36.4
--- NOTE | 2018-03-19 12:38 | NURSING ---
1145- PT OUT IN HALLWAY, DRESSED IN HER STREET CLOTHES. STATES I AM GOING TO GO DOWNSTAIRS, MY MOM IS DOWN THERE WITH MY 7 KIDS IN THE CAR AND HAS SOME CLOTHES FOR ME. INFORMED THAT SAID NURSE WOULD CALL SECURITY TO ESCORT PT DOWNSTAIRS AND BACK TO THE FLOOR. A FEW MINUTES LATER, PT CALLS FOR NURSE AND STATES THAT I WILL JUST TAKE A SHOWER, MY MOM SAID SHE WOULD JUST COME UP BECAUSE MY LITTLE BOY IS CRYING. PT THEN GIVEN 2 TOWELS AND WASHCLOTHES AND WHITE PT BELONGINGS BAG PER HER REQUEST TO PUT HER DIRTY CLOTHES IN.
--- NOTE | 2018-03-19 12:40 | NURSING ---
PT RESTING IN BED, PROGRAMMER BUSINESS TIMA JUST IN TO SEE PT. SAID NURSE INQUIRED TO IF PT MOTHER WAS STILL COMING UP WITH PT CHILDREN, PT INDICATES THAT NO SHE JUST LEFT MY STUFF DOWN THERE.
--- NOTE | 2018-03-19 12:45 | NURSING ---
said nurse phoned down to main entrance desk and inquired if anyone dropped any personal belongings off down there that needed to be brought up to med-surg2. volunteer states that there are no personal belongings down there or any that have been dropped off. said nurse to room, informed pt that no belongings are downstairs. pt states well i will talk to my mom in a little bit, maybe she is still in the parking lot.
[2018-03-19 15:54] VITALS: BP 120/77; PULSE 80; RESP 16; TEMP 36.9
--- NOTE | 2018-03-19 17:01 | CHAPLAIN ---
Type of Pastoral Visit _x__ Initial Visit ___ Follow-up Visit ___ On-call Visit ___ General Patient Visit ___ Spiritual Assessment ___ Family Conference ___ Bereavement ___ Rapid Response ___ Code Blue ___ Other (describe below) Pastoral Care Referral From _x__ Patient ___ Family ___ Nurse ___ Physician ___ Pickle Sorter ___ Marzipan Maker ___ Other (describe below) Sacrament/Intervention _x__ Active listening ___ Anointing ___ Jehovah'S Witness ___ Bereavement ___ Communion _x__ Elizabeth exploration ___ _x__ Life review _x__ Prayer ___ Reconciliation ___ Sacrament of Sick _x__ Supportive presence ___ Wedding ___ Other (describe below) Pastoral Comments patient speaks of physical pain, losing everything, going to court for custody of children, and desperate desire to get off drugs; pt is open to spiritual conversation and is talkative about her situation;
--- NOTE | 2018-03-20 07:31 | PCM.DC.SUM ---
Discharge Date and Diagnosis Date of Admission: 03/18/18 Date of Discharge: 03/19/18 Hospital Course and Treatment Summary of Care Provided: [] This is a 32-year-old female with history of polysubstance use including crack cocaine, IV heroin and benzodiazepine use. Patient was using 3 g of heroin every day, last use was about 2 days ago, prior to admission. Patient was further admitted for medical stabilization of and benzodiazepine and opioid withdrawal symptoms 1. Opioid/heroin use and dependence with withdrawal: On medical stabilization program for opioid use. Patient is on buprenorphine scheduled and then taper dose 2. Benzodiazepine use and dependence and withdrawal: On Librium scheduled and taper dose program. 3. Other polysubstance use including crack cocaine, nicotine use/every day smoker: On nicotine patch. 4. DVT prophylaxis: low risk, early ambulation encouraged. No prophylaxis indicated I was informed by the nurse about 5:30 PM on on 03/19/2018 that patient does not want to stay further and signed AMA. Patient understands the risk and complications of signing AMA INCLUDING HYPOTENSION, in her condition of opioid and benzodiazepine withdrawal. - Physical Exam General: Alert, Oriented x3, Cooperative HEENT: Atraumatic, PERRLA, EOMI, Normocephalic Neck: Supple, No JVD, Negative Carotid Bruits Lungs: Clear to auscultation, Normal air movement Cardiovascular: Regular rate, Normal S1, Normal S2, No murmurs Abdomen: Bowel Sounds Present, Soft, Non Tender Extremities: No edema, Capillary Refill Less than 3 Seconds Skin: No rashes, No breakdown Musculoskeletal: No Tenderness to Palpation of Joints or Extremities Neurological: Cranial nerves II-XII grossly intact Psych/Mental Status: Appropriate, Anxious, Restless Vital Signs Temp Pulse Resp BP Pulse Ox 98.5 F 80 16 120/77 99 03/19/18 15:54 03/19/18 15:54 03/19/18 15:54 03/19/18 15:54 03/19/18 05:31 Oxygen Delivery Method Room Air Weight: 116 lb 6.465 oz Body Mass Index (BMI) 21.9 Intake and Output for Last 24 Hours 03/18/18 03/19/18 03/20/18 23:59 23:59 23:59 Intake Total 500 / 500 Balance 500 / 500 Home Medications: Medications to take at Discharge NK 03/02/18 Primary Care Physician: Care Physician,No Primary [Primary Care Provider] - Medical Necessity - Tobacco Use Smoking Status: Light Smoker (<10/day) Meaningful Use Info Meaningful Use Diagnoses (Choose all that apply): None applicable
== END 2018-03-19 17:19 | disposition left against medical advice (07) | DRG 770 ==
LOC: ED 13:49 → MS2 15:02
PROVIDERS: Admitting Provider Internal Medicine; Emergency Provider Emergency Medicine; Referring Provider Emergency Medicine; Visit Provider Internal Medicine
DX: F11.23 Opioid dependence with withdrawal (principal); F13.239 Sedative, hypnotic or anxiolytic dependence with withdrawal, unspecified; F17.210 Nicotine dependence, cigarettes, uncomplicated
CPT/HCPCS: 36415; 80048; 80053; 80307; 80320; 84703; 85025; 97802; 99284; 99406; G0480

== ENCOUNTER 2020-08-27 17:36 | Inpatient (IN) | payer MEDICAID, SELFPAY ==
[2020-08-27 17:36] VITALS: BP 153/100; PULSE 114; RESP 18; TEMP 36.3; O2SAT 99; BMI 19.4
--- NOTE | 2020-08-27 18:30 | EKG12_ITS ---
Test Reason : DYSRYTHMIA Blood Pressure : / mmHG Vent. Rate : 096 BPM Atrial Rate : 096 BPM P-R Int : 120 ms QRS Dur : 084 ms QT Int : 352 ms P-R-T Axes : 078 046 060 degrees QTc Int : 444 ms Normal sinus rhythm Normal ECG Confirmed by GEMA DELGADO, SILAS ([id number]), editor managing director HUGO WOODS ([id number]) on 08/31/2020 1:25:52 PM Referred By: NYASIA Confirmed By:TING RIBEIRO MD
[2020-08-27 18:45] VITALS: BP 170/111; PULSE 100; PULSE 101; RESP 20; O2SAT 99
[2020-08-27] MEDS: Ondansetron 4 MG/2 ML Vial IV (19:03)
[2020-08-27] MEDS: LORazepam 2 MG/ML Syringe 1 MG IV (19:03)
[2020-08-27] MEDS: Dicyclomine 10 MG Capsule 20 MG PO ×2 (19:03→22:32)
[2020-08-27] MEDS: Phenobarbital 32.4 MG Tablet 97.2 MG PO (19:03)
[2020-08-27 19:07] LABS: Absolute Neutrophil Count 4.2 X10^3/uL (2.0-7.7); Basophil# 0.05 X10^3/uL; Basophil% 0.7 % (0-1); Eosinophil# 0.16 X10^3/uL; Eosinophils% 2.1 % (0-5); Hematocrit 36.6 % (37-47); Hemoglobin 11.3 g/dL (12.0-15.0); Lymphocyte % 34.3 % (19-41); Mean Corp Hgb Conc 30.9 g/dL (32-36); Mean Corpuscular Hgb 24.2 pg (27.0-32.0); Mean Corpuscular Volume 78.5 fL (81-99); Monocyte# 0.56 X10^3/uL; Monocyte% 7.4 % (0-10); NRBC Flagged by Analyzer 0 % (0-5); Neutrophil # 4.18 X10^3/uL (2.7-7.7); Neutrophil % 55.2 % (47-70); Platelet Count 474 K/mm3 (150-450); RBC Distribution Width SD 42.8 fl (35.1-43.9); Red Blood Count 4.66 M/mm3 (4.2-5.4); White Blood Count 7.6 K/mm3 (4.4-11.0)
--- NOTE | 2020-08-27 19:08 | ED.DCSUM_ITS ---
History of Present Illness Chief Complaint: Substance Abuse Detail of Chief Complaint: Alcohol and opiate abuse Informant: Patient Onset: Month(s) Context: Gradual Onset Timing: Continuous Quality: Snorts heroin or fentanyl and consumes 12 pack of beer daily Location: Polysubstance abuse Current Severity: Moderate Maximum Severity: Moderate Worsened by: Abstinence for 48 hours Relieved by: Nothing Associated Symptoms: Abdominal discomfort, nausea, dark-colored urine, withdrawal symptoms Narrative: Patient is a 35-year-old woman who admits to drinking a minimum of a 12 pack a day and snorting heroin or fentanyl. She has been drinking heavily for 3 years. She was sober 8 months prior. She has been snorting heroin or fentanyl for the past 6 months. She denies history of hepatitis or HIV. She denies history of heart murmur, rheumatic fever, SBE or being immune suppressed. Her last drink was approxiforty 8 hours ago and used heroin and crack cocaine approximately 24 hours ago. Patient complains of generalized sense of not feeling well. She does report the dark-colored urine. Denies history of hepatitis. Prior similar symptoms: Yes - Greater than 3 years ago Recent Illness/Hospitalization: No - Past Medical History (1) Alcohol abuse Status: Acute (2) Opiate use Status: Acute (3) Crack cocaine use Status: Acute (4) Opioid withdrawal Status: Acute Past Medical History - Allergies and Home Meds Allergies/Adverse Reactions: Allergies Penicillins [PCN] Allergy (Verified 08/27/20 17:39) Anaphylaxis Sulfa (Sulfonamide Antibiotics) Allergy (Verified 08/27/20 17:39) Anaphylaxis Primary Care Physician: Care Physician,No Primary [Primary Care Provider] - Prior records reviewed: Yes Surgical History: noncontributory Lives: Spouse/ Significant Other Smoking Status: Current every day smoker Alcohol: Heavy Drugs: Cocaine, Heroin - Family History Maternal Family History: Reports: No pertinent history Review of Systems General: Reports: Malaise. Denies: Chills, Fever, Sweats Eyes: Denies: Visual changes - bilaterally, Blurred Vision - bilaterally ENT: Denies: Bilateral ear pain, Rhinorrhea, Sore throat Cardiovascular: Denies: Chest pain, Palpitations Respiratory: Denies: Dyspnea, Cough, Dyspnea on exertion Gastrointestinal: Reports: Abdominal pain, Nausea. Denies: Vomiting, Diarrhea, Constipation, Melena, Hematochezia, -, - Genitourinary: Reports: - - Dark-colored urine. 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, Wounds Neurological: Denies: Headache, Weakness Psych: Reports: Depression Endocrine: Denies: Polyuria, Polydipsia Physical Exam Vital Signs/Narrative: Vital Signs Temp Pulse Resp BP Pulse Ox 08/27/20 18:45 100 20 H 170/111 H 99 08/27/20 17:36 97.3 F L 114 H 18 153/100 H 99 Inital Vital Signs reviewed: Yes Cardiovascular: Regular rhythm, No murmurs, Normal S1, Normal S2, Tachycardia Respiratory: No distress, CTA bilaterally, Chest nontender Abdomen: Soft, Nontender, Nondistended, Normal bowel sounds Back: Nontender, Normal Inspection Extremities: Nontender, No edema Skin: Normal color, Trauma - Credit Interviewer syndrome. Negative for: No rash, Cyanosis, Diaphoresis, Jaundice Neurological: Alert, Oriented x3, Cranial nerves II-XII grossly intact, Normal Strength, Normal Sensation, Normal DTR - Hyperreflexic without clonus or Babinski sign. Psychological: Agitated Diagnostic/Tx/Re-eval Laboratory Results 08/27/20 08/27/20 08/27/20 18:45 18:46 18:46 WBC 7.6 RBC 4.66 Hgb 11.3 L Hct 36.6 L MCV 78.5 L MCH 24.2 L MCHC 30.9 L RDW Std Deviation 42.8 RDW Coeff of Swapnil 15.0 H Plt Count 474 H MPV 9.0 Immature Gran % (Auto) 0.300 Neut % (Auto) 55.2 Lymph % (Auto) 34.3 [place] % (Auto) 7.4 Eos % (Auto) 2.1 Baso % (Auto) 0.7 Absolute Neuts (auto) 4.2 Absolute Lymphs (auto) 2.60 Nucleated RBC % 0 PT 13.0 INR 1.0 Sodium Potassium Chloride Carbon Dioxide Anion Gap BUN Creatinine Estim Creat Clear Calc Est GFR (MDRD) Af Amer Est GFR (MDRD) Non-Af BUN/Creatinine Ratio Glucose Calcium Total Bilirubin AST ALT Alkaline Phosphatase Total Protein Albumin Globulin Albumin/Globulin Ratio Urine Opiates Screen NEGATIVE Urine Methadone Screen NEGATIVE Ur Barbiturates Screen NEGATIVE Ur Phencyclidine Scrn NEGATIVE Ur Amphetamines Screen NEGATIVE U Methamphetamin-MDMA NEGATIVE U Benzodiazepines Scrn NEGATIVE Urine Cocaine Screen POSITIVE H U Cannabinoids Screen NEGATIVE Ur Drug Screen Comment Ethyl Alcohol 08/27/20 08/27/20 18:46 18:46 WBC RBC Hgb Hct MCV MCH MCHC RDW Std Deviation RDW Coeff of Swapnil Plt Count MPV Immature Gran % (Auto) Neut % (Auto) Lymph % (Auto) [place] % (Auto) Eos % (Auto) Baso % (Auto) Absolute Neuts (auto) Absolute Lymphs (auto) Nucleated RBC % PT INR Sodium 140 Potassium 3.0 L Chloride 105 Carbon Dioxide 30.0 Anion Gap 5 BUN 16 Creatinine 0.69 Estim Creat Clear Calc 83.90 Est GFR (MDRD) Af Amer 125 Est GFR (MDRD) Non-Af 103 BUN/Creatinine Ratio 23.3 H Glucose 58 L Calcium 8.6 Total Bilirubin 0.30 AST 15 ALT 19 Alkaline Phosphatase 77 Total Protein 8.0 Albumin 3.5 Globulin 4.5 H Albumin/Globulin Ratio 0.8 L Urine Opiates Screen Urine Methadone Screen Ur Barbiturates Screen Ur Phencyclidine Scrn Ur Amphetamines Screen U Methamphetamin-MDMA U Benzodiazepines Scrn Urine Cocaine Screen U Cannabinoids Screen Ur Drug Screen Comment Ethyl Alcohol < 3.0 Tox is positive for cocaine. Since opiates are negative suspect patient is snorting fentanyl and not heroin. Hepatic enzymes are normal. - EKG Initial EKG Interpretation: Sinus Rhythm - Sinus rhythm ventricular rate of 96. VT intervals 120 ms. QS duration 84 ms. QT duration 3 to 50 ms. [place] is normal. EKG is normal. - Medical Decision Making Concern patient may have alcoholic hepatitis, alcoholic liver disease. PT/INR was obtained to assess liver function. Because patient is tachycardic with hyperreflexia and absence 48 hours she was treated with IV Ativan, phenobarbital p.o., IV Zofran and Bentyl. Screening labs were obtained to rule out anemia, electrolyte abnormality, renal dysfunction ED Disposition - Plan for ED Patient: Disposition: Acute Care Hospital [facility] Diagnosis: Alcohol withdrawal, Opiate dependence, Crack cocaine use Referrals: Care Physician,No Primary [Primary Care Provider] -
[2020-08-27 19:26] VITALS: BMI 19.5
[2020-08-27 19:29] LABS: Alcohol, Blood (Medical)-Serum < 3.0 mg/dL
[2020-08-27 19:31] LABS: ALB/GLOB Ratio 0.8 RATIO (0.9-2.4); AST(SGOT) 15 U/L (15-37); Alanine Aminotransfer ALT/SGPT 19 U/L (13-56); Albumin, Serum 3.5 g/dL (3.2-5.0); Alkaline Phosphatase 77 U/L (45-117); Anion Gap 5 (5-15); BUN 16 mg/dL (7-18); BUN/Creat Ratio 23.3 RATIO (10-20); Calcium,Total 8.6 mg/dL (8.5-10.1); Chloride 105 mmol/L (98-107); Creatinine, Serum 0.69 mg/dL (0.55-1.02); EST Glomerular Filtration Rate 103 mL/min (>60); Est Glom Filt Rate - Afr Amer 125 mL/min (>60); Globulin 4.5 g/dL (2.2-4.2); Glucose 58 mg/dL (74-106); Sodium Level 140 mmol/L (136-145)
[2020-08-27 19:41] LABS: Amphetamine Urine VISTA NEGATIVE (<1000 ng/mL); Barbiturate Urine VISTA NEGATIVE (< 200 ng/mL); Benzodiazepine Urine VISTA NEGATIVE (< 200 ng/mL); Cocaine Urine VISTA POSITIVE (< 300 ng/mL); Ecstacy Urine VISTA NEGATIVE (< 500 ng/mL); Methadone Urine VISTA NEGATIVE (< 300 ng/mL); PCP Urine VISTA NEGATIVE (< 25 ng/mL); THC Urine VISTA NEGATIVE (< 50 ng/mL); Vista UDS pH Range 6
--- NOTE | 2020-08-27 20:03 | HP.PCM_ITS ---
Problem List (1) Alcohol withdrawal Status: Acute Qualifiers: Complication of substance-induced condition: with unspecified complication Qualified Code(s): F10.239 - Alcohol dependence with withdrawal, unspecified (2) Opioid withdrawal Status: Acute (3) Elevated BP without diagnosis of hypertension Status: Acute (4) Hypokalemia Status: Acute (5) Tobacco use Status: Chronic (6) Microcytic anemia Status: Chronic (7) Alcohol abuse Status: Chronic History of Present Illness Date of Admission: 08/27/20 Chief Complaint: Acute opiate and EtOH withdrawal The patient is a 35 y/o F w/ PMHx: Polysubstance abuse (EtOH 12 pack/day, last use 48 hours, Fentanyl/crack/heroin snorted x 6 months, last usage 24 hours) w/ last detox ~4 years prior with ~ 8 months of sobriety, Tobacco use who presents to the [facility] ED on 08/27/20 with history of significant alcohol abuse per her report over the last 3 years although she had been sober reportedly for 8 months noting she started again secondary to her spouse with ongoing alcohol and opiate substance abuse who presents to the [facility] on 08/27/20 w/ noted acute EtOH withdrawal and acute Opiate withdrawal, onset starting over the last 24-36 hours, progressively worsening following last EtOH intake 48 hours and last opiates 24 hours with onset of nausea, tremors, agitation and intermittent fatigue, diaphoresis, body aches, piloerection, restless legs, tactile disturbances. Patient had been sober following of her recent child who is now 8 months old. She and her have lost custody of her older children (5 total children, age range 8 month old to 16 years old, her mother has custody of all but the 8 month old, but now Children's services involved and she will loose custody of her baby). Patient interested in attaining sober status given this recent outcome. Work-up in the ED included T 97.3, heart rate 114, BP 153/100, respiratory rate 18, 99% on room air, CBC with WC 7.6, hemoglobin 0.3, MCV 78.5, platelet 474 without any shift, unremarkable coags, CMP with potassium 3.0, glucose 58, hepatic profile not marked appearing, UDS with positive cocaine, ethyl alcohol level less than 3. In the ED patient ministered phenobarbital 97.2 mg p.o. x1, Zofran 4 mg IV x1, Ativan 1 mg IV x1, Bentyl 20 mg p.o. x1. Past Medical History Past Medical History (Chronic Problems): Chronic Problems Alcohol abuse (Chronic) Tobacco use (Chronic) Microcytic anemia (Chronic) Allergies Penicillins [PCN] Allergy (Verified 08/27/20 17:39) Anaphylaxis Sulfa (Sulfonamide Antibiotics) Allergy (Verified 08/27/20 17:39) Anaphylaxis Home Medications: Ambulatory Orders Medication Instructions Recorded Buprenorphine HCl/Naloxone HCl 2 tablet PO DAILY 08/27/20 [Suboxone 8 mg-2 mg Sl Film] Surgical History: no surgical history - Patient denies any surgical history. Psychiatric History: - - Patient denies any underlying psychiatric history including anxiety and depression. CHARGE ACCOUNT CLERK History: No pertinent CHARGE ACCOUNT CLERK history Lives: Spouse/ Significant Other Smoking Status: Current every day smoker - Patient with ongoing currently 1/2 pack/day cigarette tobacco usage starting when she was a teenager. Tobacco Use: Cigarettes Alcohol: Heavy - Patient with ongoing heavy alcohol abuse, routinely she notes at least 12 pack of beer daily, sometimes more. Drugs: Cocaine, Heroin, - - Patient with significant polysubstance abuse with heroin, cocaine and suspected likely fentanyl which she has been snorting reportedly over the last 6 months. - *Family History Maternal History Items: - - Patient denies any marked maternal or paternal family history including heart disease, diabetes, cancer. Paternal History Items: - - Patient denies any marked maternal or paternal family history including heart disease, diabetes, cancer. Review of Systems Constitutional: Reports: Anorexia, Malaise, Weakness, Fatigue. Denies: Chills, Fever, Weight Change HEENT: Reports: Nasal Congestion, Post Nasal Drip. Denies: Head Aches, Sinus Congestion, Sinus Drainage Cardiovascular: Denies: Chest Pain, Palpitations Respiratory: Denies: Cough, Shortness of breath at rest, Sputum production Gastrointestinal: Reports: Abdominal Pain, Nausea. Denies: Vomiting Genitourinary: Denies: Dysuria Musculoskeletal: Reports: Joint Pain, Muscle pain. Denies: Joint Tenderness Skin: Reports: Skin Changes. Denies: Rash, Wounds Neurological: Reports: Tremor. Denies: Focal weakness, Numbness, Tingling Psychiatric: Denies: Anxiety, Depression, Homicidal Ideations, Suicidal Ideations Hematologic/ Lymphatic: Reports: Anemia. Denies: Easy Bruising, Easy Bleeding VTE Information - Inpt Only VTE Present on Admission: No VTE Mechan Device Prophylaxis: None VTE Pharm Prophylaxis ordered?: No Reason prophylaxis not ordered:: Treatment Not Indicated Patient Problems: Active and Suspected Problems Opioid withdrawal (Acute) Opiate use (Acute) Crack cocaine use (Acute) Alcohol withdrawal (Acute) Opiate dependence (Acute) Subjective: Patient laying in the ED bed, very fatigued, eventually awakening falling discussions. Objective: Physical Examination: General: Patient initially very lethargic, fatigued, awakens following several attempts, more alert after a time, oriented to self, place and recent events, remains cooperative, seated upright in the ED bed, no acute distress but recently had sedated medications. Skin: normal color, turgor, no icterus, cyanosis except significant diffuse primarily extremity both upper and lower as well as thorax picture regions, no obvious infected regions but extremely extensive. HEENT: AT/NC, EOMI, PERRLA, dry MM, no carotid bruits or JVD noted. Lungs: Diminished breath sounds, greater bases, moderate effort, no rales, ronchi or wheezing. Heart: Mildly tachycardic with regular rhythm; no gallop, rub audible. Abdomen: soft, thin habitus, NTTP, ND, normal BS, no HSM. Extremities: no cyanosis, clubbing, or edema. Neurological: Patient initially very lethargic, fatigued, awakens following several attempts, more alert after a time, oriented to self, place and recent events, remains cooperative, seated upright in the ED bed, no acute distress but recently had sedated medications; cognitive function improved throughout examination, likely secondary to recent sedate of medication, suspect nearing baseline intact near end of evaluation; pupils equally reactive to light and accomodation; cranial nerves II-XII grossly normal, moving all 4 extremities, no focal deficits, strength moderately to severely global decrease given recent sedate of medication and acute presentation with withdrawal, mild tremors noted, intermittently restless legs noted. Psychiatric: affect appears extremely fatigued, lethargic, no acute evidence of depressive or anxiety feelings. - Physical Exam Vitals/I&O's: Vital Signs Temp Pulse Resp BP Pulse Ox 97.3 F L 101 H 20 H 170/111 H 99 08/27/20 17:36 08/27/20 18:45 08/27/20 18:45 08/27/20 18:45 08/27/20 18:45 Oxygen Delivery Method Room Air Weight: 102 lb 15.294 oz Body Mass Index (BMI) 19.4 Laboratory Results 08/27/20 18:45: Urine Opiates Screen NEGATIVE, Urine Methadone Screen NEGATIVE, Ur Barbiturates Screen NEGATIVE, Ur Phencyclidine Scrn NEGATIVE, Ur Amphetamines Screen NEGATIVE, U Methamphetamin-MDMA NEGATIVE, U Benzodiazepines Scrn NEGATIVE, Urine Cocaine Screen POSITIVE H, U Cannabinoids Screen NEGATIVE, Ur Drug Screen Comment 08/27/20 18:46: WBC 7.6, RBC 4.66, Hgb 11.3 L, Hct 36.6 L, MCV 78.5 L, MCH 24.2 L, MCHC 30.9 L, RDW Std Deviation 42.8, RDW Coeff of Swapnil 15.0 H, Plt Count 474 H , MPV 9.0, Immature Gran % (Auto) 0.300, Neut % (Auto) 55.2, Lymph % (Auto) 34.3, [place] % (Auto) 7.4, Eos % (Auto) 2.1, Baso % (Auto) 0.7, Absolute Neuts (auto) 4.2, Absolute Lymphs (auto) 2.60, Nucleated RBC % 0 08/27/20 18:46: PT 13.0, INR 1.0 08/27/20 18:46: Sodium 140, Potassium 3.0 L, Chloride 105, Carbon Dioxide 30.0, Anion Gap 5, BUN 16, Creatinine 0.69, Estim Creat Clear Calc 83.90, Est GFR (MDRD) Af Amer 125, Est GFR (MDRD) Non-Af 103, BUN/Creatinine Ratio 23.3 H, Glucose 58 L, Calcium 8.6, Total Bilirubin 0.30, AST 15, ALT 19, Alkaline Phosphatase 77, Total Protein 8.0, Albumin 3.5, Globulin 4.5 H, Albumin/Globulin Ratio 0.8 L 08/27/20 18:46: Ethyl Alcohol < 3.0 Assessment/Plan All Active Problems Opioid withdrawal (Acute) Opiate use (Acute) Crack cocaine use (Acute) Alcohol withdrawal (Acute) Opiate dependence (Acute) Elevated BP without diagnosis of hypertension (Acute) Hypokalemia (Acute) The patient is a 35 y/o F w/ PMHx: Polysubstance abuse (EtOH 12 pack/day, last use 48 hours, Fentanyl/crack/heroin snorted x 6 months, last usage 24 hours) w/ last detox ~4 years prior with ~ 8 months of sobriety, Tobacco use who presents to the [facility] ED on 08/27/20 with history of significant alcohol abuse per her report over the last 3 years although she had been sober reportedly for 8 months noting she started again secondary to her spouse with ongoing alcohol and opiate substance abuse who presents to the [facility] on 08/27/20 w/ noted acute EtOH withdrawal and acute Opiate withdrawal. 1. Acute EtOH Withdrawal: Will admit to adequate surgical floor, routine labs obtained in the ED upon presentation and notable for mild hypokalemia and hyperglycemia in addition to appearance of underlying chronic anemia. Given interest in sobriety, will initiate and continue on protocol with taper course of Phenobarbital, scheduled gabapentin for seizure prophylaxis, as needed [place] pres, Bentyl, Vistaril, IV fluids, IV antiemetics, Tylenol as needed for pain. Will consult Case management for assistance for transition to next level of rehabilitation care. Mag, phos pending. Maintain on CIWA protocol concurrently. 2. Acute Opiate Withdrawal: Given patient concurrent usage of several opiates, will additionally initiate and continue on protocol with tapering course of Subutex, as needed tylenol, ibuprofen, bowel regimen, gabapentin, Bentyl, Vistaril, methocarbamol, clonidine, PRN nightly trazodone for insomnia, IV fluids, IV antiemetics. Once patient clinically improved and completion of taper nearing will plan consultation with case management for transition to next level of rehabilitation care. 3. Polysubstance Abuse, Chronic: We will obtain HIV and hepatitis panel given significant polysubstance use although does deny IV substance use. Patient currently not candidate for hep C treatment currently as needs to be clean, sober x 6 months, documented attendance NA or AA meetings, counseling and ongoing negative drug screens. 4. Elevated BP without hypertensive diagnosis: Patient with significantly elevated blood pressures upon presentation, will continue to trend, possibly related with acute withdrawal presentation, if appropriate will add oral regimen, as needed IV hydralazine in interim. 5. Hypokalemia: Admission K+ 3.0, magnesium level requested, supplementation given, repeat level in AM. 6. Hyperglycemia: Admission glucose 58, possibly related with acute presentation, poor recent oral intake, if necessary may add dextrose to IV fluids, will continue to trend. 7. Tobacco Abuse: Encouraged cessation, inpatient consultation per RT, NR if desired. 8. DVT prophylaxis: Low risk, encourage ambulation. Inpatient E&M: 99030 Init Hosp L3
[2020-08-27 20:32] VITALS: BP 174/114; PULSE 115; RESP 14; TEMP 37.4; O2SAT 96
--- NOTE | 2020-08-27 20:34 | CM.ED ---
Addendum entered by Nan Shah 08/27/20 20:55: Discussed case with Dr. Michelle. Patient reports to have 5 children. Per patient, children are being cared for by her mother. Call to patient's mother Brooklyn Guajardo [phone]. Per patient's mother, patient's great grandmother has custody of patient's older children. Mother reports patient has custody of 1-year-old. Mother states Children Services is involved and aware of patient's relapse. Mother has been in contact with patient's correctional casework specialist. Original Note: SOCIAL WORK Reason for Consult: Substance abuse- requesting detox from alcohol and heroin Patient presents to ER with for detox. Patient reports last drink and last use of heroin was 2 days ago. Call to [facility] Treatment Navigator, Mati to update on admission. Mati reports will update Sarah who will be in tomorrow for assessment. Plan: JANET Shah, UNIVERSITY INTERN, PEDIATRIC OCCUPATIONAL THERAPIST
[2020-08-27 20:54] VITALS: BMI 19.7
[2020-08-27 20:56] VITALS: BP 163/118; PULSE 121; RESP 18; TEMP 36.9; O2SAT 99
[2020-08-27 21:14] LABS: Magnesium 2.1 mg/dL (1.6-2.6); Phosphorus 3.5 mg/dL (2.5-4.9)
[2020-08-27] MEDS: Phenobarbital 32.4 MG Tablet PO (21:43)
[2020-08-27] MEDS: Lactated Ringers 1,000 ML 125 ML IV (21:43)
[2020-08-27] MEDS: Potassium Chloride Oral Tablet 20 MEQ 40 MEQ PO (21:43)
[2020-08-27 21:56] LABS: HIV - WCH Non-Reactive (Nonreactive)
[2020-08-27 22:00] VITALS: O2SAT 99
[2020-08-27] MEDS: Buprenorphine HCl 2 MG TAB.SUBL SL (22:02)
[2020-08-27] MEDS: Mupirocin Ointment 22gm Tube 1 APPLIC TOPICAL (22:28)
[2020-08-27 22:32] VITALS: PULSE 119
[2020-08-27] MEDS: hydrALAZINE 20 MG/ML Vial 10 MG IV (22:32)
[2020-08-27] MEDS: Methocarbamol 750 MG Tablet 1500 MG PO (22:32)
[2020-08-27] MEDS: Gabapentin 300 MG Capsule PO (22:32)
[2020-08-28] VITALS (7 sets, daily range): BP systolic 125–155; BP diastolic 82–98; PULSE 87–122; RESP 14–18; TEMP 36.5–37.7; O2SAT 98–100
[2020-08-28] MEDS: Phenobarbital 32.4 MG Tablet PO ×6 (01:18→20:55)
[2020-08-28] MEDS: cloNIDine HCl 0.1 MG Tablet PO (01:18)
[2020-08-28] MEDS: Acetaminophen 500 MG Tablet PO (01:18)
[2020-08-28] MEDS: Mupirocin Ointment 22gm Tube 1 APPLIC TOPICAL ×2 (05:46→21:53)
[2020-08-28] MEDS: Buprenorphine HCl 2 MG TAB.SUBL SL ×3 (05:46→21:53)
[2020-08-28 05:59] LABS: ALB/GLOB Ratio 0.8 RATIO (0.9-2.4); AST(SGOT) 11 U/L (15-37); Alanine Aminotransfer ALT/SGPT 14 U/L (13-56); Albumin, Serum 2.7 g/dL (3.2-5.0); Alkaline Phosphatase 68 U/L (45-117); Anion Gap 6 (5-15); BUN 9 mg/dL (7-18); BUN/Creat Ratio 17.1 RATIO (10-20); Calcium,Total 8.2 mg/dL (8.5-10.1); Chloride 107 mmol/L (98-107); Creatinine, Serum 0.53 mg/dL (0.55-1.02); EST Glomerular Filtration Rate 140 mL/min (>60); Est Glom Filt Rate - Afr Amer 170 mL/min (>60); Estimated Creatinine Clearance 110.63 ml/min; Globulin 3.4 g/dL (2.2-4.2); Glucose 91 mg/dL (74-106); Potassium 3.9 mmol/L (3.5-5.1); Protein, Total 6.1 g/dL (6.4-8.2); Sodium Level 140 mmol/L (136-145)
[2020-08-28] MEDS: Ondansetron 8 MG Tablet PO (08:24)
[2020-08-28] MEDS: Folic Acid 1 MG Tablet PO (08:24)
[2020-08-28] MEDS: Multivitamins,Therapeutic Tablet 1 TABLET PO (08:24)
[2020-08-28] MEDS: Thiamine Hydrochloride 100 MG Tablet PO (08:24)
--- NOTE | 2020-08-28 10:39 | PN_ITS ---
Patient Problems: Active and Suspected Problems Opioid withdrawal (Acute) Opiate use (Acute) Crack cocaine use (Acute) Alcohol withdrawal (Acute) Opiate dependence (Acute) Elevated BP without diagnosis of hypertension (Acute) Hypokalemia (Acute) Subjective: Patient states she is overall feeling fairly poorly still but improved since she presented. Admits that the wounds on her face and arms are from picking and asked if there is anything we can put on them to heal them faster. There is no signs of infection and I encouraged her just to leave them alone. She states that she has detox before and has been able to be sober periodically. Complains of intermittent nausea without emesis and feels internally tremulous. Reports she is having intermittent diarrhea. Vitals/I&O's: Vital Signs Temp Pulse Resp BP Pulse Ox 97.9 F 87 14 131/82 H 98 08/28/20 08:14 08/28/20 08:14 08/28/20 08:14 08/28/20 08:14 08/28/20 08:14 Oxygen Delivery Method Room Air Weight: 47.3 kg Body Mass Index (BMI) 19.7 Intake and Output for Last 24 Hours 08/26/20 08/27/20 08/28/20 23:59 23:59 23:59 Intake Total 1000 / 1000 Balance 1000 / 1000 General: Alert, Oriented x3, Cooperative, No apparent distress, - - Thin middle- aged white female, appears older than stated age, nontoxic appearing HEENT: Atraumatic, PERRLA, EOMI, Normocephalic, EAC Clear Oral: Moist Mucosa, No Gingival or Mucosal Lesions/ Ulcerations, - - Dentition, Mallampati 2 Neck: Supple, Trachea Midline Lungs: Clear to auscultation, Normal air movement, No rhonchi, No wheeze, No rales Cardiovascular: Regular rate, Regular Rhythm, Normal S1, Normal S2, No murmurs, No Ectopic Activity Abdomen: Bowel Sounds Present, Soft, Non Tender, Non-Distended Extremities: No clubbing, No cyanosis, No edema, Capillary Refill Less than 3 Seconds, Peripheral Pulses Normal Skin: - - Multiple lesions on face and bilateral arms that appear consistent with chronic picking-no signs of infection with any of these lesions Neurological: Cranial nerves II-XII grossly intact, Neuro grossly intact Psych/Mental Status: Appropriate, Flat Affect Laboratory Results 08/27/20 18:45: Urine Opiates Screen NEGATIVE, Urine Methadone Screen NEGATIVE, Ur Barbiturates Screen NEGATIVE, Ur Phencyclidine Scrn NEGATIVE, Ur Amphetamines Screen NEGATIVE, U Methamphetamin-MDMA NEGATIVE, U Benzodiazepines Scrn NEGATIVE, Urine Cocaine Screen POSITIVE H, U Cannabinoids Screen NEGATIVE, Ur Drug Screen Comment 08/27/20 18:46: WBC 7.6, RBC 4.66, Hgb 11.3 L, Hct 36.6 L, MCV 78.5 L, MCH 24.2 L, MCHC 30.9 L, RDW Std Deviation 42.8, RDW Coeff of Swapnil 15.0 H, Plt Count 474 H , MPV 9.0, Immature Gran % (Auto) 0.300, Neut % (Auto) 55.2, Lymph % (Auto) 34.3, Greer % (Auto) 7.4, Eos % (Auto) 2.1, Baso % (Auto) 0.7, Absolute Neuts (auto) 4.2, Absolute Lymphs (auto) 2.60, Nucleated RBC % 0 08/27/20 18:46: PT 13.0, INR 1.0 08/27/20 18:46: Sodium 140, Potassium 3.0 L, Chloride 105, Carbon Dioxide 30.0, Anion Gap 5, BUN 16, Creatinine 0.69, Estim Creat Clear Calc 83.90, Est GFR (MDRD) Af Amer 125, Est GFR (MDRD) Non-Af 103, BUN/Creatinine Ratio 23.3 H, Glucose 58 L, Calcium 8.6, Total Bilirubin 0.30, AST 15, ALT 19, Alkaline Phosphatase 77, Total Protein 8.0, Albumin 3.5, Globulin 4.5 H, Albumin/Globulin Ratio 0.8 L 08/27/20 18:46: Ethyl Alcohol < 3.0 08/27/20 18:46: Phosphorus 3.5, Magnesium 2.1 08/27/20 18:46: Hepatitis A IgM Ab Pending, Hepatitis A Ab Total Pending, Hep Bs Antigen Pending, Hep B Core Total Ab Pending, Hep B Core IgM Ab Pending 08/27/20 18:46: HIV 1&2 Antibody Non-Reactive 08/28/20 05:30: Sodium 140, Potassium 3.9, Chloride 107, Carbon Dioxide 27.0, Anion Gap 6, BUN 9, Creatinine 0.53 L, Estim Creat Clear Calc 110.63, Est GFR (MDRD) Af Amer 170, Est GFR (MDRD) Non-Af 140, BUN/Creatinine Ratio 17.1, Glucose 91, Calcium 8.2 L, Total Bilirubin 0.30, AST 11 L, ALT 14, Alkaline Phosphatase 68, Total Protein 6.1 L, Albumin 2.7 L, Globulin 3.4, Albumin/Globulin Ratio 0.8 L Current Medications Acetaminophen (Acetaminophen 500 Mg Tablet) 500 mg PO Q4H PRN PRN PRN Reason: Temp > 100.4 F Last Admin: 08/28/20 01:18 Dose: 500 mg Documented by: Al Hydroxide/Mg Hydroxide (Mag Hydrox/Al Hydrox/Simeth 30 Ml Udc) 30 ml PO Q6H PRN PRN PRN Reason: dyspesia Albuterol Sulfate (Albuterol 2.5 Mg/3 Ml Vial.Neb.) 2.5 mg INHALATION Q2H PRN PRN PRN Reason: Dyspnea, wheezing Bisacodyl (Bisacodyl 10 Mg Suppository) 10 mg RC DAILY PRN PRN Reason: Constipation Buprenorphine HCl (Buprenorphine Hcl 2 Mg Tab.Subl) 4 mg SL Q8H [facility]; Taper Stop: 08/30/20 21:59 Last Admin: 08/28/20 05:46 Dose: 4 mg Documented by: Clonidine (Clonidine Hcl 0.1 Mg Tablet) 0.1 mg PO Q8H PRN PRN PRN Reason: RESTLESSNESS Last Admin: 08/28/20 01:18 Dose: 0.1 mg Documented by: Dicyclomine HCl (Dicyclomine 10 Mg Capsule) 20 mg PO Q6H PRN PRN PRN Reason: Abdominal Discomfort Last Admin: 08/27/20 22:32 Dose: 20 mg Documented by: Folic Acid (Folic Acid 1 Mg Tablet) 1 mg PO DAILY@0800 [facility] Last Admin: 08/28/20 08:24 Dose: 1 mg Documented by: Gabapentin (Gabapentin 300 Mg Capsule) 300 mg PO Q8H PRN PRN PRN Reason: moderate to severe anxiety Last Admin: 08/27/20 22:32 Dose: 300 mg Documented by: Hydralazine HCl (Hydralazine 20 Mg/Ml Vial) 10 mg IV Q4H PRN PRN PRN Reason: SBP > 160 Last Admin: 08/27/20 22:32 Dose: 10 mg Documented by: Hydroxyzine Pamoate (Hydroxyzine Crissy 25 Mg Capsule) 50 mg PO Q6H PRN PRN PRN Reason: mild anxiety Ibuprofen (Ibuprofen 600 Mg Tablet) 600 mg PO Q8H PRN PRN PRN Reason: PAIN Loperamide HCl (Loperamide 2 Mg Capsule) 2 mg PO Q4H PRN PRN PRN Reason: LOOSE STOOLS Methocarbamol (Methocarbamol 750 Mg Tablet) 1,500 mg PO Q6H PRN PRN PRN Reason: MUSCLE SPASM Last Admin: 08/27/20 22:32 Dose: 1,500 mg Documented by: Multivitamins ([facility]it[facility],Therapeutic Tablet) [facility] Last Admin: 08/28/20 08:24 Dose: 1 tablet Documented by: Mupirocin (Mupirocin Ointment 22gm Tube) 1 applic TOPICAL TID [facility]; Protocol Last Admin: 08/28/20 05:46 Dose: 1 applic Documented by: Nicotine Polacrilex (Nicotine Polacrilex 2 Mg Gum) 2 mg PO Q2H PRN PRN PRN Reason: Nicotine Craving Ondansetron HCl (Ondansetron 8 Mg Tablet) 8 mg PO Q8H PRN PRN PRN Reason: NAUSEA Last Admin: 08/28/20 08:24 Dose: 8 mg Documented by: Phenobarbital (Phenobarbital 32.4 Mg Tablet) 97.2 mg PO Q4H [facility]; Taper Stop: 09/01/20 04:59 Last Admin: 08/28/20 08:24 Dose: 97.2 mg Documented by: Senna (Senna Tablet) 2 tablet PO QHS PRN PRN PRN Reason: Constipation Sodium Chloride (0.9% Saline Lock 10 Ml Syringe) 10 - 40 ml IV UD PRN PRN Reason: SALINE FLUSH Thiamine HCl (Thiamine Hydrochloride 100 Mg Tablet) [facility] Last Admin: 08/28/20 08:24 Dose: 100 mg Documented by: Trazodone HCl (Trazodone 100 Mg Tablet) 100 mg PO QHS PRN PRN PRN Reason: INSOMNIA STROKE Vital Signs/Narrative: Vital Signs Temp Pulse Resp BP Pulse Ox 08/28/20 08:14 97.9 F 87 14 131/82 H 98 Medical Necessity - Tobacco Use Smoking Status: Current every day smoker Tobacco Use: Cigarettes Assessment/Plan All Active Problems Opioid withdrawal (Acute) Opiate use (Acute) Crack cocaine use (Acute) Alcohol withdrawal (Acute) Opiate dependence (Acute) Elevated BP without diagnosis of hypertension (Acute) Hypokalemia (Acute) Acute alcohol withdrawal -Phenobarb taper -Continue supportive medications -Thiamine/folate -CIWA protocol with as needed Ativan availability -180 consultation Acute opiate withdrawal -Suboxone taper -Supportive medications -HIV was assessed and was nonreactive -Hepatitis panel pending -will check hepatitis C antibody Hypokalemia -3.0 on admission and now 3.9 today after treatment -Resolved Elevated blood pressure -Suspect related to withdrawal -Overall better today -Continue to monitor Tachycardia -Resolved -Suspect related to withdrawal Polysubstance abuse -Tox screen is only positive for cocaine -Patient does however admit to use of alcohol with at least 12 pack a day, fentanyl, cocaine, heroin -See above Chronic microcytic anemia -Hemoglobin is overall stable -Check a.m. iron studies -We will repeat in the a.m. and consider initiation of iron Thrombocytosis -Suspect related to iron deficiency -Iron studies in the a.m. Hypoglycemia -Resolved -Suspect related to alcohol induced inhibition of gluconeogenesis in the liver poor p.o. intake Tobacco abuse -Encouraged cessation -Nicotine patch if desired DVT prophylaxis -Low risk -Early ambulation protocol CODE STATUS -Full code Inpatient E&M: 86492 Subs Hosp L2
--- NOTE | 2020-08-28 12:53 | ADDICTION ---
PT stated that she is not able to complete assessments today due to not feeling well. She requested to be seen at next visit.
--- NOTE | 2020-08-28 12:56 | CASEMGMT ---
Addendum entered by Nydia Teran 08/28/20 16:39: Green sheet taken off chart as this worker will just call pt's fly rail operator on Monday to update when pt discharges. Original Note: Social Work Note SW reviewed chart. Pt has open CPS case with [facility]. MARY placed a call to pt's mother Brooklyn Guajardo as it was reported that Brooklyn has updated pt's fly rail operator and is currently taking care of pt's 1-year old. MARY placed a call to Brooklyn. Brooklyn states pt's fly rail operator is Lore Lauren and number is [phone]. Pato confirms that she has updated Lore on pt's admission to [facility]. MARY placed a call to pt's Shear Assembler Lore Lauren. Lore confirms she is pt's fly rail operator and her coworker Jazmin is Family Peer Support for pt. Lore confirms she was updated on pt's admission to [facility] Detox program. MARY informed Lore that with the RAMP program, pt will meet with staff from [facility] who will complete assessment and discuss discharge plans for pt. MARY informed Lore that pt didn't want to meet with [facility] today, [facility] will meet with pt tomorrow. Lore requests pt's assessment to be faxed to her ([phone]). Lore also requests to be called and notified when pt discharges from [facility] at the same number listed above ([phone]). Lore states pt has had life long watson with addiction and so has her family. Lore states pt has been to [facility] for IOP before (last year) and Lore thinks pt will likely want to go back there at discharge. Lore states they do have residential treatment. Lore states pt was sober since November until about the end of the year. Lore thinks pt relapsed due to COVID, losing Job, getting COVID, her child getting COVID and pt having to be in quarantine. MARY updated Sarah with [facility] on above information. MARY provided Sarah with fax number for staff on the weekend to fax pt's assessment to Lore. Green sheet on chart for staff to call pt's Shear Assembler Lore Lauren when pt is discharged. Nydia Teran MOBILE EQUIPMENT SERVICER, HOME ENERGY RATER
[2020-08-28] MEDS: Ibuprofen 600 MG Tablet PO (14:29)
--- NOTE | 2020-08-28 14:54 | CASEMGMT ---
Social Work Note SW in to speak with pt. SW introduced self and role at [facility]. SW informed pt that this worker had to call pt's reflow operator Lore to let her know pt was admitted here for RAMP. SW informed Pt that Lore requested pt's assessment that she does with [facility] to be faxed to her at discharge. SW asked pt if she gives permission for assessment to be faxed and pt gave permission. Pt signed Release of Information and ZARIA placed on pt's chart. Nydia Teran BLOWING ENGINEER, SYNOPTIC METEOROLOGIST
[2020-08-28] MEDS: Dicyclomine 10 MG Capsule 20 MG PO (17:10)
[2020-08-29] MEDS: Phenobarbital 32.4 MG Tablet PO ×6 (01:58→21:13)
[2020-08-29 02:03] VITALS: BP 138/89; PULSE 76; RESP 16; TEMP 37.2; O2SAT 99
[2020-08-29] MEDS: Mupirocin Ointment 22gm Tube 1 APPLIC TOPICAL ×3 (05:12→21:13)
[2020-08-29 06:17] LABS: Absolute Lymphocyte Count 2.76 X10^3/uL (0.83-4.51); Basophil# 0.07 X10^3/uL; Basophil% 0.9 % (0-1); Eosinophil# 0.38 X10^3/uL; Eosinophils% 4.9 % (0-5); Hematocrit 35.1 % (37-47); Hemoglobin 10.8 g/dL (12.0-15.0); Lymphocyte # 2.76 X10^3/ul (4.0); Lymphocyte % 35.6 % (19-41); Mean Corp Hgb Conc 30.8 g/dL (32-36); Mean Corpuscular Hgb 24.2 pg (27.0-32.0); Mean Corpuscular Volume 78.5 fL (81-99); Mean Platelet Vol. 9.3 fl (6.2-12.0); Monocyte# 0.51 X10^3/uL; Monocyte% 6.6 % (0-10); NRBC Flagged by Analyzer 0 % (0-5); Neutrophil # 4.02 X10^3/uL (2.7-7.7); Neutrophil % 51.7 % (47-70); Platelet Count 401 K/mm3 (150-450); RBC Distribution Width CV 14.8 % (11.6-14.6); RBC Distribution Width SD 42.4 fl (35.1-43.9); Red Blood Count 4.47 M/mm3 (4.2-5.4); White Blood Count 7.8 K/mm3 (4.4-11.0)
[2020-08-29] MEDS: Buprenorphine HCl 2 MG TAB.SUBL SL ×3 (06:26→21:12)
[2020-08-29 06:49] LABS: Ferritin 5 ng/mL (8-252); Iron 16 ug/dL (50-170); Iron Binding Capacity,Total 323 ug/dL (250-450)
[2020-08-29 07:07] LABS: HEPATITIS B SURFACE AG Negative (Negative); Hepatitis A AB, Total Negative (Negative); Hepatitis A IgM Antibody Negative (Negative); Hepatitis B Core AB IgM Negative (Negative); Hepatitis B Core Ab Total Negative (Negative)
[2020-08-29 08:41] VITALS: O2SAT 97
[2020-08-29] MEDS: Multivitamins,Therapeutic Tablet 1 TABLET PO (09:31)
[2020-08-29] MEDS: Thiamine Hydrochloride 100 MG Tablet PO (09:31)
[2020-08-29] MEDS: Folic Acid 1 MG Tablet PO (09:31)
[2020-08-29] MEDS: Ferrous Sulfate 325 MG Tablet PO ×3 (09:31→18:34)
[2020-08-29 09:36] VITALS: BP 143/86; PULSE 108; RESP 16; TEMP 36.8; O2SAT 98
[2020-08-29] MEDS: Gabapentin 300 MG Capsule PO ×2 (09:40→18:34)
[2020-08-29] MEDS: cloNIDine HCl 0.1 MG Tablet PO (09:40)
[2020-08-29] MEDS: Methocarbamol 750 MG Tablet 1500 MG PO ×2 (09:41→16:12)
[2020-08-29] MEDS: Dicyclomine 10 MG Capsule 20 MG PO ×2 (09:41→16:12)
--- NOTE | 2020-08-29 10:10 | PN_ITS ---
Patient Problems: Active and Suspected Problems Opioid withdrawal (Acute) Opiate use (Acute) Crack cocaine use (Acute) Alcohol withdrawal (Acute) Opiate dependence (Acute) Elevated BP without diagnosis of hypertension (Acute) Hypokalemia (Acute) Subjective: Patient states she is still feeling rough. I did note though however she has eaten 100% of her breakfast. She does admit the nausea is significantly better. She appears as if she is feeling better today as well. Vitals/I&O's: Vital Signs Temp Pulse Resp BP Pulse Ox 98.3 F 108 H 16 143/86 H 98 08/29/20 09:36 08/29/20 09:36 08/29/20 09:36 08/29/20 09:36 08/29/20 09:36 Oxygen Delivery Method Room Air Weight: 47.3 kg Body Mass Index (BMI) 19.7 Intake and Output for Last 24 Hours 08/27/20 08/28/20 08/29/20 23:59 23:59 23:59 Intake Total 1000 / 1000 Balance 1000 / 1000 General: Alert, Oriented x3, Cooperative, No apparent distress, Well developed, Well nourished, - - Disheveled middle-aged white female who appears older than stated age, sitting up in bed watching television, nontoxic, appears comfortable Oral: Moist Mucosa Neck: Supple, Trachea Midline Lungs: Normal air movement, No rhonchi, No wheeze, No rales, Wheezes - End expiratory wheeze that clears with cough Cardiovascular: Regular rate, Regular Rhythm, Normal S1, Normal S2, No murmurs, No Ectopic Activity, No rub noted, No Gallop Abdomen: Bowel Sounds Present, Soft, Non Tender, Non-Distended Extremities: No clubbing, No cyanosis, No edema, Capillary Refill Less than 3 Seconds, Peripheral Pulses Normal Skin: - - Multiple scabs on face and bilateral arms consistent with picking-no signs of infection Musculoskeletal: No Tenderness to Palpation of Joints or Extremities, Cachexia Psych/Mental Status: Normal Affect, Agitated Laboratory Results 08/28/20 05:30: Hepatitis C Antibody Preliminary Reactive 08/29/20 06:00: WBC 7.8, RBC 4.47, Hgb 10.8 L, Hct 35.1 L, MCV 78.5 L, MCH 24.2 L, MCHC 30.8 L, RDW Std Deviation 42.4, RDW Coeff of Swapnil 14.8 H, Plt Count 401, MPV 9.3, Immature Gran % (Auto) 0.300, Neut % (Auto) 51.7, Lymph % (Auto) 35.6, Gila % (Auto) 6.6, Eos % (Auto) 4.9, Baso % (Auto) 0.9, Absolute Neuts (auto) 4.0, Absolute Lymphs (auto) 2.76, Nucleated RBC % 0 08/29/20 06:00: Iron 16 L, TIBC 323, Iron Saturation 5.0 L, Ferritin 5 L Current Medications Acetaminophen (Acetaminophen 500 Mg Tablet) 500 mg PO Q4H PRN PRN PRN Reason: Temp > 100.4 F Last Admin: 08/28/20 01:18 Dose: 500 mg Documented by: Al Hydroxide/Mg Hydroxide (Mag Hydrox/Al Hydrox/Simeth 30 Ml Udc) 30 ml PO Q6H PRN PRN PRN Reason: dyspesia Albuterol Sulfate (Albuterol 2.5 Mg/3 Ml Vial.Neb.) 2.5 mg INHALATION Q2H PRN PRN PRN Reason: Dyspnea, wheezing Bisacodyl (Bisacodyl 10 Mg Suppository) 10 mg RC DAILY PRN PRN Reason: Constipation Buprenorphine HCl (Buprenorphine Hcl 2 Mg Tab.Subl) 2 mg SL Q8H [facility]; Taper Stop: 08/30/20 21:59 Last Admin: 08/29/20 06:26 Dose: 2 mg Documented by: Clonidine (Clonidine Hcl 0.1 Mg Tablet) 0.1 mg PO Q8H PRN PRN PRN Reason: RESTLESSNESS Last Admin: 08/29/20 09:40 Dose: 0.1 mg Documented by: Dicyclomine HCl (Dicyclomine 10 Mg Capsule) 20 mg PO Q6H PRN PRN PRN Reason: Abdominal Discomfort Last Admin: 08/29/20 09:41 Dose: 20 mg Documented by: Ferrous Sulfate (Ferrous Sulfate 325 Mg Tablet) 325 mg PO TIDCM [facility] Last Admin: 08/29/20 09:31 Dose: 325 mg Documented by: Folic Acid (Folic Acid 1 Mg Tablet) 1 mg PO DAILY@0800 [facility] Last Admin: 08/29/20 09:31 Dose: 1 mg Documented by: Gabapentin (Gabapentin 300 Mg Capsule) 300 mg PO Q8H PRN PRN PRN Reason: moderate to severe anxiety Last Admin: 08/29/20 09:40 Dose: 300 mg Documented by: Hydralazine HCl (Hydralazine 20 Mg/Ml Vial) 10 mg IV Q4H PRN PRN PRN Reason: SBP > 160 Last Admin: 08/27/20 22:32 Dose: 10 mg Documented by: Hydroxyzine Pamoate (Hydroxyzine Crissy 25 Mg Capsule) 50 mg PO Q6H PRN PRN PRN Reason: mild anxiety Ibuprofen (Ibuprofen 600 Mg Tablet) 600 mg PO Q8H PRN PRN PRN Reason: PAIN Last Admin: 08/28/20 14:29 Dose: 600 mg Documented by: Loperamide HCl (Loperamide 2 Mg Capsule) 2 mg PO Q4H PRN PRN PRN Reason: LOOSE STOOLS Methocarbamol (Methocarbamol 750 Mg Tablet) 1,500 mg PO Q6H PRN PRN PRN Reason: MUSCLE SPASM Last Admin: 08/29/20 09:41 Dose: 1,500 mg Documented by: Multivitamins (Multivitamins,Therapeutic Tablet) [facility] Last Admin: 08/29/20 09:31 Dose: 1 tablet Documented by: Mupirocin (Mupirocin Ointment 22gm Tube) 1 applic TOPICAL TID [facility]; Protocol Last Admin: 08/29/20 05:12 Dose: 1 applic Documented by: Nicotine Polacrilex (Nicotine Polacrilex 2 Mg Gum) 2 mg PO Q2H PRN PRN PRN Reason: Nicotine Craving Ondansetron HCl (Ondansetron 8 Mg Tablet) 8 mg PO Q8H PRN PRN PRN Reason: NAUSEA Last Admin: 08/28/20 08:24 Dose: 8 mg Documented by: Phenobarbital (Phenobarbital 32.4 Mg Tablet) 64.8 mg PO Q4H [facility]; Taper Stop: 09/01/20 04:59 Last Admin: 08/29/20 09:32 Dose: 64.8 mg Documented by: Senna (Senna Tablet) 2 tablet PO QHS PRN PRN PRN Reason: Constipation Sodium Chloride (0.9% Saline Lock 10 Ml Syringe) 10 - 40 ml IV UD PRN PRN Reason: SALINE FLUSH Thiamine HCl (Thiamine Hydrochloride 100 Mg Tablet) [facility] Last Admin: 08/29/20 09:31 Dose: 100 mg Documented by: Trazodone HCl (Trazodone 100 Mg Tablet) 100 mg PO QHS PRN PRN PRN Reason: INSOMNIA STROKE Vital Signs/Narrative: Vital Signs Temp Pulse Resp BP Pulse Ox 08/29/20 09:36 98.3 F 108 H 16 143/86 H 98 08/29/20 08:41 97 Medical Necessity - Tobacco Use Smoking Status: Current every day smoker Tobacco Use: Cigarettes Assessment/Plan All Active Problems Opioid withdrawal (Acute) Opiate use (Acute) Crack cocaine use (Acute) Alcohol withdrawal (Acute) Opiate dependence (Acute) Elevated BP without diagnosis of hypertension (Acute) Hypokalemia (Acute) Acute alcohol withdrawal -Phenobarb taper--> currently on 64.8 mg every 4 hours -Continue supportive medications -Thiamine/folate -CIWA protocol with as needed Ativan availability -180 did attempt to see the patient yesterday but the patient reported she was unable to complete an assessment because she did not feel well and requested she be seen at a later date Acute opiate withdrawal -Suboxone taper--> currently on 2 mg every 8 hours -Supportive medications -HIV was assessed and was nonreactive -Preliminary hepatitis C antibody is reactive -Check viral load to assess for viral clearance or chronic hep C infection Positive hepatitis C antibody -Viral load pending to assess for viral clearance versus chronic hep C infection Elevated blood pressure -Patient remains mildly hypertensive at times -I would not initiate treatment until she is completed withdrawal and remains hypertensive -Continue to monitor Tachycardia -Continues to have intermittent tachycardia but overall rate is less than 100 Polysubstance abuse -Tox screen is only positive for cocaine -Patient does however admit to use of alcohol with at least 12 pack a day, fentanyl, cocaine, heroin -See above Iron deficient anemia-chronic -Hemoglobin is overall stable -Serum iron is 16, iron saturation is 5 and ferritin is 5 with a TIBC of 323 all of which are suggestive of iron deficiency anemia -Suspect this is multifactorial -Start 3 times daily iron supplementation Thrombocytosis -Secondary to iron deficiency -Better today with IV hydration -Iron supplementation initiated Tobacco abuse -Encouraged cessation -Nicotine patch if desired DVT prophylaxis -Low risk -Early ambulation protocol CODE STATUS -Full code Inpatient E&M: 64133 Subs Hosp L2
[2020-08-29 12:10] LABS: Hep B Surface Antibodies Non Reactive (.)
[2020-08-29 12:11] LABS: Hepatitis C Ab >11.0 s/co ratio (0.0-0.9)
[2020-08-29] MEDS: Ibuprofen 600 MG Tablet PO (13:31)
[2020-08-29] MEDS: hydrOXYzine PAM 25 MG Capsule 50 MG PO ×2 (13:31→21:47)
[2020-08-29 16:10] VITALS: BP 110/69; PULSE 86; RESP 16; TEMP 36.9; O2SAT 99
[2020-08-29 21:08] VITALS: BP 130/84; PULSE 96; RESP 18; TEMP 36.6; O2SAT 100
[2020-08-29] MEDS: traZODone 100 MG Tablet PO (21:47)
[2020-08-30] VITALS (9 sets, daily range): BP systolic 122–163; BP diastolic 71–116; PULSE 103–116; RESP 16–20; TEMP 36.3–37.3; O2SAT 98–99
[2020-08-30] MEDS: 0.9% Saline Lock 10 ML Syringe IV ×2 (01:42→14:15)
[2020-08-30] MEDS: Methocarbamol 750 MG Tablet 1500 MG PO ×3 (01:43→18:00)
[2020-08-30] MEDS: Phenobarbital 32.4 MG Tablet PO ×5 (01:43→22:36)
[2020-08-30] MEDS: Mupirocin Ointment 22gm Tube 1 APPLIC TOPICAL ×3 (05:38→22:36)
[2020-08-30] MEDS: cloNIDine HCl 0.1 MG Tablet PO ×3 (05:38→22:36)
[2020-08-30] MEDS: Buprenorphine HCl 2 MG TAB.SUBL SL (09:23)
[2020-08-30] MEDS: Ferrous Sulfate 325 MG Tablet PO ×3 (09:23→18:00)
[2020-08-30] MEDS: Multivitamins,Therapeutic Tablet 1 TABLET PO (09:24)
[2020-08-30] MEDS: Folic Acid 1 MG Tablet PO (09:24)
[2020-08-30] MEDS: Thiamine Hydrochloride 100 MG Tablet PO (09:24)
[2020-08-30] MEDS: Gabapentin 300 MG Capsule PO ×2 (09:25→18:00)
--- NOTE | 2020-08-30 11:08 | PCM.PN.HOSP ---
Patient Problems: Active and Suspected Problems Opioid withdrawal (Acute) Opiate use (Acute) Crack cocaine use (Acute) Alcohol withdrawal (Acute) Opiate dependence (Acute) Elevated BP without diagnosis of hypertension (Acute) Hypokalemia (Acute) Subjective: Patient states she is feeling even better today but admits to still being tired. Acknowledges the plan for discharge tomorrow with her mom and plans to follow-up at [facility] in [place]. Denies any current needs. Vitals/I&O's: Vital Signs Temp Pulse Resp BP Pulse Ox 97.3 F L 115 H 20 H 155/97 H 98 08/30/20 09:29 08/30/20 09:29 08/30/20 09:29 08/30/20 09:29 08/30/20 09:29 Oxygen Delivery Method Room Air Weight: 47.3 kg Body Mass Index (BMI) 19.7 Intake and Output for Last 24 Hours 08/28/20 08/29/20 08/30/20 23:59 23:59 23:59 Intake Total 1000 / 1000 Balance 1000 / 1000 General: Alert, Oriented x3, Cooperative, No apparent distress, Well developed, Well nourished, - - Disheveled middle-aged white female, sitting up in bed, eating breakfast and watching television, appears calm, nontoxic HEENT: Atraumatic, Normocephalic Oral: Moist Mucosa Neck: Supple, Trachea Midline Lungs: No rhonchi, No wheeze, No rales, Diminished - Diffusely Cardiovascular: Regular Rhythm, Normal S1, Normal S2, No murmurs, No Ectopic Activity, No rub noted, No Gallop, Tachycardic - Mild Abdomen: Bowel Sounds Present, Soft, Non Tender, Non-Distended Extremities: No clubbing, No cyanosis, No edema, Capillary Refill Less than 3 Seconds, Peripheral Pulses Normal Skin: - - Scattered lesions on face and bilateral upper extremities secondary to picking, no signs of infection, no bleeding Neurological: Cranial nerves II-XII grossly intact, Neuro grossly intact Psych/Mental Status: Appropriate, Flat Affect Laboratory Results 08/27/20 18:46: Hepatitis A IgM Ab Negative, Hepatitis A Ab Total Negative, Hep Bs Antigen Negative, Hep B Core Total Ab Negative, Hep B Core IgM Ab Negative, Hepatitis C Ab Confirm >11.0 H 08/29/20 06:00: HCV RNA Quant (PCR) Pending Current Medications Acetaminophen (Acetaminophen 500 Mg Tablet) 500 mg PO Q4H PRN PRN PRN Reason: Temp > 100.4 F Last Admin: 08/28/20 01:18 Dose: 500 mg Documented by: Al Hydroxide/Mg Hydroxide (Mag Hydrox/Al Hydrox/Simeth 30 Ml Udc) 30 ml PO Q6H PRN PRN PRN Reason: dyspesia Albuterol Sulfate (Albuterol 2.5 Mg/3 Ml Vial.Neb.) 2.5 mg INHALATION Q2H PRN PRN PRN Reason: Dyspnea, wheezing Bisacodyl (Bisacodyl 10 Mg Suppository) 10 mg RC DAILY PRN PRN Reason: Constipation Buprenorphine HCl (Buprenorphine Hcl 2 Mg Tab.Subl) 2 mg SL Q12H [facility]; Taper Stop: 08/30/20 21:59 Last Admin: 08/30/20 09:23 Dose: 2 mg Documented by: Clonidine (Clonidine Hcl 0.1 Mg Tablet) 0.1 mg PO Q8H PRN PRN PRN Reason: RESTLESSNESS Last Admin: 08/30/20 05:38 Dose: 0.1 mg Documented by: Dicyclomine HCl (Dicyclomine 10 Mg Capsule) 20 mg PO Q6H PRN PRN PRN Reason: Abdominal Discomfort Last Admin: 08/29/20 16:12 Dose: 20 mg Documented by: Ferrous Sulfate (Ferrous Sulfate 325 Mg Tablet) 325 mg PO TIDCM [facility] Last Admin: 08/30/20 09:23 Dose: 325 mg Documented by: Folic Acid (Folic Acid 1 Mg Tablet) 1 mg PO DAILY@0800 [facility] Last Admin: 08/30/20 09:24 Dose: 1 mg Documented by: Gabapentin (Gabapentin 300 Mg Capsule) 300 mg PO Q8H PRN PRN PRN Reason: moderate to severe anxiety Last Admin: 08/30/20 09:25 Dose: 300 mg Documented by: Hydralazine HCl (Hydralazine 20 Mg/Ml Vial) 10 mg IV Q4H PRN PRN PRN Reason: SBP > 160 Last Admin: 08/27/20 22:32 Dose: 10 mg Documented by: Hydroxyzine Pamoate (Hydroxyzine Crissy 25 Mg Capsule) 50 mg PO Q6H PRN PRN PRN Reason: mild anxiety Last Admin: 08/29/20 21:47 Dose: 50 mg Documented by: Ibuprofen (Ibuprofen 600 Mg Tablet) 600 mg PO Q8H PRN PRN PRN Reason: PAIN Last Admin: 08/29/20 13:31 Dose: 600 mg Documented by: Loperamide HCl (Loperamide 2 Mg Capsule) 2 mg PO Q4H PRN PRN PRN Reason: LOOSE STOOLS Methocarbamol (Methocarbamol 750 Mg Tablet) 1,500 mg PO Q6H PRN PRN PRN Reason: MUSCLE SPASM Last Admin: 08/30/20 09:24 Dose: 1,500 mg Documented by: Multivitamins (Multivitamins,Therapeutic Tablet) [facility] Last Admin: 08/30/20 09:24 Dose: 1 tablet Documented by: Mupirocin (Mupirocin Ointment 22gm Tube) 1 applic TOPICAL TID [facility]; Protocol Last Admin: 08/30/20 05:38 Dose: 1 applic Documented by: Nicotine Polacrilex (Nicotine Polacrilex 2 Mg Gum) 2 mg PO Q2H PRN PRN PRN Reason: Nicotine Craving Ondansetron HCl (Ondansetron 8 Mg Tablet) 8 mg PO Q8H PRN PRN PRN Reason: NAUSEA Last Admin: 08/28/20 08:24 Dose: 8 mg Documented by: Phenobarbital (Phenobarbital 32.4 Mg Tablet) 64.8 mg PO Q6H [facility]; Taper Stop: 09/01/20 04:59 Last Admin: 08/30/20 11:03 Dose: 64.8 mg Documented by: Senna (Senna Tablet) 2 tablet PO QHS PRN PRN PRN Reason: Constipation Sodium Chloride (0.9% Saline Lock 10 Ml Syringe) 10 - 40 ml IV UD PRN PRN Reason: SALINE FLUSH Last Admin: 08/30/20 01:42 Dose: 10 ml Documented by: Thiamine HCl (Thiamine Hydrochloride 100 Mg Tablet) [facility] Last Admin: 08/30/20 09:24 Dose: 100 mg Documented by: Trazodone HCl (Trazodone 100 Mg Tablet) 100 mg PO QHS PRN PRN PRN Reason: INSOMNIA Last Admin: 08/29/20 21:47 Dose: 100 mg Documented by: STROKE Vital Signs/Narrative: Vital Signs Temp Pulse Resp BP BP Pulse Ox 08/30/20 09:29 97.3 F L 115 H 20 H 155/97 H 98 08/30/20 09:25 115 H 08/30/20 07:24 98 08/30/20 07:20 147/102 H Medical Necessity - Tobacco Use Smoking Status: Current every day smoker Tobacco Use: Cigarettes Assessment/Plan All Active Problems Opioid withdrawal (Acute) Opiate use (Acute) Crack cocaine use (Acute) Alcohol withdrawal (Acute) Opiate dependence (Acute) Elevated BP without diagnosis of hypertension (Acute) Hypokalemia (Acute) cute alcohol withdrawal -Phenobarb taper--> currently on 64.8 mg every 6 hours -Continue supportive medications -Thiamine/folate -CIWA protocol with as needed Ativan availability Acute opiate withdrawal -Suboxone taper--> currently on 2 mg every 12 hours -Supportive medications -HIV was assessed and was nonreactive Hepatitis C -Viral load pending to assess for viral clearance versus chronic hep C infection Elevated blood pressure -Blood pressure remains elevated on a fairly consistent basis also had some normal blood pressures as of yesterday -Off at this time on treatment while patient is going through withdrawal and reassess when she is more stable clinically for antihypertensive needs Tachycardia -Continues to have intermittent tachycardia -Monitor -Erin related to withdrawal Polysubstance abuse -Tox screen is only positive for cocaine -Patient does however admit to use of alcohol with at least 12 pack a day, fentanyl, cocaine, heroin -See above Iron deficient anemia-chronic -Hemoglobin has been overall stable -Serum iron is 16, iron saturation is 5 and ferritin is 5 with a TIBC of 323 all of which are suggestive of iron deficiency anemia -Suspect this is multifactorial -Continue 3 times daily iron supplementation -Hotel Controller for constipation Thrombocytosis -Suspect secondary to iron deficiency -Iron supplementation initiated Tobacco abuse -Encouraged cessation -Nicotine patch if desired DVT prophylaxis -Low risk -Early ambulation protocol CODE STATUS -Full code Disposition -Discharge home on 08/31/2020 with mother and her mom will transport her to rehab at [facility] - is in PCU and will need discharged at the same time -We will need a new prescription for iron tablets -Patient was found to be markedly iron deficient Inpatient E&M: 42757 Subs Hosp L2
[2020-08-30] MEDS: Acetaminophen 500 MG Tablet PO ×2 (14:13→20:12)
[2020-08-30] MEDS: hydrOXYzine PAM 25 MG Capsule 50 MG PO ×2 (14:13→22:36)
[2020-08-30] MEDS: hydrALAZINE 20 MG/ML Vial 10 MG IV (14:14)
[2020-08-30] MEDS: Ibuprofen 600 MG Tablet PO (20:12)
[2020-08-31 02:26] VITALS: BP 97/54; PULSE 81; RESP 18; TEMP 36.4; O2SAT 99
[2020-08-31] MEDS: Methocarbamol 750 MG Tablet 1500 MG PO (02:30)
[2020-08-31] MEDS: Phenobarbital 32.4 MG Tablet PO (05:55)
[2020-08-31] MEDS: Mupirocin Ointment 22gm Tube 1 APPLIC TOPICAL (05:55)
[2020-08-31 07:38] VITALS: O2SAT 97
[2020-08-31 07:47] VITALS: BP 105/73; PULSE 83; RESP 16; TEMP 36.6; O2SAT 100
[2020-08-31] MEDS: Folic Acid 1 MG Tablet PO (07:56)
[2020-08-31] MEDS: Ferrous Sulfate 325 MG Tablet PO (07:56)
[2020-08-31] MEDS: Multivitamins,Therapeutic Tablet 1 TABLET PO (07:56)
[2020-08-31] MEDS: Thiamine Hydrochloride 100 MG Tablet PO (08:03)
--- NOTE | 2020-08-31 08:11 | PCM.DC ---
- Discharge Diagnoses Current Active Problems: Current Active and Chronic Problems Opioid withdrawal (Acute) Alcohol abuse (Chronic) Opiate use (Acute) Crack cocaine use (Acute) Alcohol withdrawal (Acute) Opiate dependence (Acute) Tobacco use (Chronic) Elevated BP without diagnosis of hypertension (Acute) Hypokalemia (Acute) Microcytic anemia (Chronic) Reason(s) for Visit for Discharge Instructions: Acute opiate withdrawal You will use the following diet at home:: Regular Your food should be the consistency of: Regular Your liquids should be the consistency of: Regular/Thin Discharge Activity: Return to Normal Activity Additional Instructions: You are strongly advised to continue to avoid use of opioids. You are also advised to stop smoking. Follow-up with your outpatient drug rehab program as scheduled. Allergies/Adverse Reactions: Allergies Penicillins [PCN] Allergy (Verified 08/27/20 17:39) Anaphylaxis Sulfa (Sulfonamide Antibiotics) Allergy (Verified 08/27/20 17:39) Anaphylaxis Medications to take at Discharge Ferrous Sulfate 325 mg PO TIDCM 30 Days #90 tablet 08/31/20 Folic Acid 1 mg PO DAILY@0800 30 Days #30 tablet 08/31/20 Multivitamins,Therapeutic [Multivitamin] 1 tablet PO DAILYCM 30 Days #30 tablet 08/31/20 Thiamine Hydrochloride [Vitamin B1] 100 mg PO DAILYCM 30 Days #30 tablet 08/31/20 The following prescriptions were given: Ferrous Sulfate 325 mg PO TIDCM 30 Days #90 tablet Transmission Status: Received by [facility]/pharmacy #[id number] Folic Acid 1 mg PO DAILY@0800 30 Days #30 tablet Transmission Status: Received by [facility]/pharmacy #[id number] Multivitamins,Therapeutic [Multivitamin] 1 tablet PO DAILYCM 30 Days #30 tablet Transmission Status: Received by [facility]/pharmacy #[id number] Thiamine Hydrochloride [Vitamin B1] 100 mg PO DAILYCM 30 Days #30 tablet Transmission Status: Received by [facility]/pharmacy #[id number] Primary Care Physician: Care Physician,No Primary [Primary Care Provider] - Please follow up with your Primary Care Physician in: within 1-2 weeks Test Results: Test results from this visit will be discussed in further detail at your follow-up appointment, if applicable. Proposed Discharge Date: 08/31/20
[2020-08-31 08:21] LABS: Hepatitis C Antibody REACTIVE (Nonreactive)
--- NOTE | 2020-08-31 08:50 | DS.PCM_ITS ---
Discharge Date and Diagnosis - Problem List Patient Problems: Active and Suspected Problems Opioid withdrawal (Acute) Opiate use (Acute) Crack cocaine use (Acute) Alcohol withdrawal (Acute) Opiate dependence (Acute) Elevated BP without diagnosis of hypertension (Acute) Hypokalemia (Acute) Date of Admission: 08/27/20 Date of Discharge: 08/31/20 - Primary Discharge Diagnosis Acute Problems: Active Problems Acute opioid withdrawal Acute alcohol withdrawal Polysubstance use disorder Nicotine dependence Thrombocytosis Hypokalemia - Secondary Discharge Diagnosis Chronic Problems: Chronic Problems Alcohol abuse (Chronic) Tobacco use (Chronic) Microcytic anemia (Chronic) Hospital Course and Treatment None Operations: None Procedures: None Summary of Care Provided: The patient is a 35 year old F with past medical history of polysubstance use disorder -Perez, fentanyl, crack, heroin, who last had a detox 4 years ago, comes in with about 8 months of sobriety. She comes in requesting for medical stabilization for acute alcohol and opiate withdrawal. Patient was admitted to the [facility] and managed on the O. And alcohol withdrawal protocol. There were no acute events. There were social events relating to loss of custody of her children on account of polysubstance use. Child services reportedly involved. Patient was interested in being sober. She was discharged to follow-up with 180 in the outpatient. Patient Problems: Active and Suspected Problems Opioid withdrawal (Acute) Opiate use (Acute) Crack cocaine use (Acute) Alcohol withdrawal (Acute) Opiate dependence (Acute) Elevated BP without diagnosis of hypertension (Acute) Hypokalemia (Acute) Subjective: At the time of discharge, patient was seen and examined. No acute events overnight. Denied any complaints. Objective: Physical exam: GEN: Alert, oriented x3, obese, not pale, well hydrated CVS: HS I +II, regular, no murmurs RESP: CTA ABD: BS present, soft, non-tender, no palpable organs EXT: No edema - Physical Exam Vitals/I&O's: Vital Signs Temp Pulse Resp BP Pulse Ox 97.9 F 83 16 105/73 100 08/31/20 07:47 08/31/20 07:47 08/31/20 07:47 08/31/20 07:47 08/31/20 07:47 Oxygen Delivery Method Room Air Weight: 47.3 kg Body Mass Index (BMI) 19.7 Laboratory Results 08/28/20 05:30: Hepatitis C Antibody REACTIVE Current Medications Acetaminophen (Acetaminophen 500 Mg Tablet) 500 mg PO Q4H PRN PRN PRN Reason: Temp > 100.4 F Last Admin: 08/30/20 20:12 Dose: 500 mg Documented by: Al Hydroxide/Mg Hydroxide (Mag Hydrox/Al Hydrox/Simeth 30 Ml Udc) 30 ml PO Q6H PRN PRN PRN Reason: dyspesia Albuterol Sulfate (Albuterol 2.5 Mg/3 Ml Vial.Neb.) 2.5 mg INHALATION Q2H PRN PRN PRN Reason: Dyspnea, wheezing Bisacodyl (Bisacodyl 10 Mg Suppository) 10 mg RC DAILY PRN PRN Reason: Constipation Clonidine (Clonidine Hcl 0.1 Mg Tablet) 0.1 mg PO Q8H PRN PRN PRN Reason: RESTLESSNESS Last Admin: 08/30/20 22:36 Dose: 0.1 mg Documented by: Dicyclomine HCl (Dicyclomine 10 Mg Capsule) 20 mg PO Q6H PRN PRN PRN Reason: Abdominal Discomfort Last Admin: 08/29/20 16:12 Dose: 20 mg Documented by: Ferrous Sulfate (Ferrous Sulfate 325 Mg Tablet) 325 mg PO TIDCM [facility] Last Admin: 08/31/20 07:56 Dose: 325 mg Documented by: Folic Acid (Folic Acid 1 Mg Tablet) 1 mg PO DAILY@0800 [facility] Last Admin: 08/31/20 07:56 Dose: 1 mg Documented by: Gabapentin (Gabapentin 300 Mg Capsule) 300 mg PO Q8H PRN PRN PRN Reason: moderate to severe anxiety Last Admin: 08/30/20 18:00 Dose: 300 mg Documented by: Hydralazine HCl (Hydralazine 20 Mg/Ml Vial) 10 mg IV Q4H PRN PRN PRN Reason: SBP > 160 Last Admin: 08/30/20 14:14 Dose: 10 mg Documented by: Hydroxyzine Pamoate (Hydroxyzine Crissy 25 Mg Capsule) 50 mg PO Q6H PRN PRN PRN Reason: mild anxiety Last Admin: 08/30/20 22:36 Dose: 50 mg Documented by: Ibuprofen (Ibuprofen 600 Mg Tablet) 600 mg PO Q8H PRN PRN PRN Reason: PAIN Last Admin: 08/30/20 20:12 Dose: 600 mg Documented by: Loperamide HCl (Loperamide 2 Mg Capsule) 2 mg PO Q4H PRN PRN PRN Reason: LOOSE STOOLS Methocarbamol (Methocarbamol 750 Mg Tablet) 1,500 mg PO Q6H PRN PRN PRN Reason: MUSCLE SPASM Last Admin: 08/31/20 02:30 Dose: 1,500 mg Documented by: Multivitamins (Multivit[facility],Therapeutic Tablet) [facility] Last Admin: 08/31/20 07:56 Dose: 1 tablet Documented by: Mupirocin (Mupirocin Ointment 22gm Tube) 1 applic TOPICAL TID [facility]; Protocol Last Admin: 08/31/20 05:55 Dose: 1 applic Documented by: Nicotine Polacrilex (Nicotine Polacrilex 2 Mg Gum) 2 mg PO Q2H PRN PRN PRN Reason: Nicotine Craving Ondansetron HCl (Ondansetron 8 Mg Tablet) 8 mg PO Q8H PRN PRN PRN Reason: NAUSEA Last Admin: 08/28/20 08:24 Dose: 8 mg Documented by: Phenobarbital (Phenobarbital 32.4 Mg Tablet) 32.4 mg PO Q6H [facility]; Taper Stop: 09/01/20 04:59 Last Admin: 08/31/20 05:55 Dose: 32.4 mg Documented by: Senna (Senna Tablet) 2 tablet PO QHS PRN PRN PRN Reason: Constipation Sodium Chloride (0.9% Saline Lock 10 Ml Syringe) 10 - 40 ml IV UD PRN PRN Reason: SALINE FLUSH Last Admin: 08/30/20 14:15 Dose: 10 ml Documented by: Thiamine HCl (Thiamine Hydrochloride 100 Mg Tablet) [facility] Last Admin: 08/31/20 08:03 Dose: 100 mg Documented by: Trazodone HCl (Trazodone 100 Mg Tablet) 100 mg PO QHS PRN PRN PRN Reason: INSOMNIA Last Admin: 08/29/20 21:47 Dose: 100 mg Documented by: Discharge Diet: No Restrictions Discharge Activity: Return to Normal Activity Home Medications: Medications to take at Discharge Ferrous Sulfate 325 mg PO TIDCM 30 Days #90 tablet 08/31/20 Folic Acid 1 mg PO DAILY@0800 30 Days #30 tablet 08/31/20 Multivitamins,Therapeutic [Multivitamin] 1 tablet PO DAILYCM 30 Days #30 tablet 08/31/20 Thiamine Hydrochloride [Vitamin B1] 100 mg PO DAILYCM 30 Days #30 tablet 08/31/20 Following Prescriptions Were Given to Patient: Ferrous Sulfate 325 mg PO TIDCM 30 Days #90 tablet Transmission Status: Received by [facility]/pharmacy #[id number] Folic Acid 1 mg PO DAILY@0800 30 Days #30 tablet Transmission Status: Received by [facility]/pharmacy #[id number] Multivitamins,Therapeutic [Multivitamin] 1 tablet PO DAILYCM 30 Days #30 tablet Transmission Status: Received by [facility]/pharmacy #[id number] Thiamine Hydrochloride [Vitamin B1] 100 mg PO DAILYCM 30 Days #30 tablet Transmission Status: Received by [facility]/pharmacy #[id number] Primary Care Physician: Care Physician,No Primary [Primary Care Provider] - Please follow up with your Primary Care Physician in: within 1-2 weeks Disposition: Home Minutes spent on discharge:: 40 Patient Condition:: Stable Medical Necessity - Tobacco Use Smoking Status: Current every day smoker Tobacco Use: Cigarettes Meaningful Use Info Meaningful Use Diagnoses (Choose all that apply): None applicable Inpatient E&M: 46808 Disch Hosp
[2020-08-31] MEDS: Loperamide 2 MG Capsule PO (10:17)
--- NOTE | 2020-08-31 10:35 | CASEMGMT ---
Social Work Note Pt is being discharged today. SW placed a call to pt's Gis Instructor with [facility] and updated her on discharge. Per chart, pt is going to do IOP at [place] and pt signed [place] for [facility] to fax [place] [facility] information. Nydia Pink TOUR BUS DRIVER/GUIDE, BILLING MACHINE OPERATOR
[2020-08-31 20:07] LABS: HCV Quant. RNA PCR HCV Not Detected IU/mL (.)
== END 2020-08-31 10:32 | disposition home or self-care (01) | DRG 773 ==
LOC: ED 19:59 → MS3 20:18
PROVIDERS: Internal Medicine; Admitting Provider Family Medicine; Emergency Provider Emergency Medicine; Visit Provider Internal Medicine
DX: F11.23 Opioid dependence with withdrawal (principal); F10.239 Alcohol dependence with withdrawal, unspecified; Y90.0 Blood alcohol level of less than 20 mg/100 ml; F14.10 Cocaine abuse, uncomplicated; F17.210 Nicotine dependence, cigarettes, uncomplicated; E87.6 Hypokalemia; E16.2 Hypoglycemia, unspecified; D47.3 Essential (hemorrhagic) thrombocythemia; D50.9 Iron deficiency anemia, unspecified; R03.0 Elevated blood-pressure reading, without diagnosis of hypertension
CPT/HCPCS: 36415; 80053; 80307; 82077; 82728; 83540; 83550; 83735; 84100; 85025; 85610; 86703; 86704; 86705; 86706; 86708; 86709; 86803; 87340; 87522; 93005; 99285; 99406; J7120; A4216; J2405

== ENCOUNTER 2020-10-10 15:32 | Inpatient (IN) | payer MEDICAID, SELFPAY ==
[2020-10-10 15:33] VITALS: BP 139/89; PULSE 97; RESP 18; TEMP 36.6; O2SAT 98; BMI 18.8
[2020-10-10 15:39] VITALS: BP 139/85; PULSE 97; RESP 18; TEMP 36.7; O2SAT 98
--- NOTE | 2020-10-10 15:46 | EKG12_ITS ---
Test Reason : Blood Pressure : / mmHG Vent. Rate : 088 BPM Atrial Rate : 088 BPM P-R Int : 116 ms QRS Dur : 080 ms QT Int : 362 ms P-R-T Axes : 077 049 066 degrees QTc Int : 438 ms Normal sinus rhythm Moderate voltage criteria for LVH, may be normal variant Borderline ECG Confirmed by MARIANA DELGADO, YOBANI ([id number]), medical editor HUGO WOODS ([id number]) on 10/12/2020 1:09:41 PM Referred By: PHILLIP Confirmed By:YOBANI PEÑA MD
--- NOTE | 2020-10-10 15:47 | EDS_ITS ---
HPI History of Present Illness Chief Complaint: Substance Abuse Narrative Narrative: 35-year-old female presenting for detox from alcohol and opiate abuse. She states he drinks about a 12 pack of beer a day. Last drink was yesterday and she estimates about 22 hours. She also states that her last heroin use was yesterday at about the same time. Patient states she smoked heroin and does not inject or snorted. She also admits to crack cocaine use about 3 days ago. Patient states that she detoxed about 2 months ago and never really felt well. She is looking to detox again and have outpatient follow-up after detox. She has nausea without vomiting. She admits to weight loss which she estimates that about 30 to 40 pounds since her last admission. She denies chest pain or shortness of breath but states she does have palpitations intermittently. She does not have any abdominal pain but admits to nausea. [facility] Medical History Alcohol abuse Microcytic anemia Opiate dependence Tobacco use Home Medications NK 10/10/20 [History Last Taken Unknown] Allergy/AdvReac Type Severity Reaction Status Date / Time Penicillins [PCN] Allergy Anaphylaxis Verified 10/10/20 15:42 Sulfa (Sulfonamide Allergy Anaphylaxis Verified 10/10/20 15:42 Antibiotics) Surgical History H/O: Social History household members: spouse number of children: 5 Smoking Status: Current every day smoker alcohol intake: current alcohol intake frequency: other Alcohol type: beer details: ~ 12 beers daily. substance use type: crack/cocaine and heroin ROS ROS ED Constitutional Constitutional ED: Reports weight loss; Denies chills, fever(s) or sweats Eyes Eyes: Reports other Details: Intermittent spotting of vision. ; Denies blurry vision or change in vision ENT ENT ED: Denies ear pain, rhinorrhea or sore throat Cardiovascular Cardiovascular: Denies chest pain, palpitations or racing heartbeat Respiratory/Chest Respiratory/Chest: Denies cough, dyspnea or sputum Gastrointestinal Gastrointestinal: Reports nausea; Denies abdominal pain, constipation, diarrhea or vomiting Genitourinary Genitourinary ED: Denies dysuria, hematuria or urinary frequency Musculoskeletal Musculoskeletal: Denies arthralgias, myalgias or neck pain Integumentary Denies abscess, Abrasions or rash Neurologic Neurologic: Denies headache(s), paresthesias or weakness Psychiatric Psychiatric: Reports anxiety; Denies depression, suicidal ideation or suicidal thoughts Endocrine Endocrinology: Denies polydipsia or polyuria EXAM Physical Exam Const Vital Signs: 10/10/20 15:33 10/10/20 15:39 Temperature 98 F 98.0 F Temperature Source Temporal Temporal Pulse Rate 97 97 Respiratory Rate 18 18 Blood Pressure 139/89 H 139/85 H Blood Pressure Mean 105 103 Blood Pressure Source Monitor Blood Pressure Position Sitting Blood Pressure Location Left Arm Pulse Ox 98 98 Oxygen Delivery Method Room Air Room Air Positive well developed General Appearance ED: well developed and NAD; Negative for pallor HEENT Reports normocephalic, head/scalp atraumatic and moist mucous membranes atraumatic; Negative for trauma Eyes PERRL and EOMs intact bilaterally Neck no lymphadenopathy and supple Chest Wall inspection of chest normal and palpation of chest normal Resp normal respiratory effort and clear to auscultation bilaterally Auscultation: Negative for rales, rhonchi or wheezes Cardio regular rate and regular rhythm GI normal to inspection, nondistended, normoactive bowel sounds, soft to palpation, non-tender and non-distended Auscultation: normoactive bowel sounds Palpation: soft Narrative: Deferred Back/Spine no CVA tenderness General Back: Negative for CVA tenderness Cervical Spine: Negative for cervical spine tenderness Extremity normal to inspection General Extremety ED: Yes edema and tenderness General Extremity: edema Neuro oriented x3 and CN's II-XII intact bilaterally Sensorium / Orientation: alert Motor Exam: strength 5/5 throughout Psych mental status grossly normal and thought process normal Attitude: No agitated Mood & Affect: anxious Skin no rashes or lesions noted and no wounds General Skin Exam: Negative for jaundice or pallor Lesions: no lesions Rashes: no rashes MDM MDM MDM Narrative Medical decision making narrative: Days ago. [id number] female presenting for detox from alcohol and heroin. She states she also uses crack cocaine. Patient states that crack use was 3 days ago. Patient admits to using alcohol and heroin about 22 hours ago. She states that she does feel anxious and jittery. She is given Ativan in the ED. Her blood work is normal. hCG is negative. EtOH is negative. Tox being positive for cocaine. Patient appears improved on reevaluation. Patient states that her mother has her child and that the child is safe. Patient discussed with hospitalist who admitted the patient for detox. Impression: 1. EtOH abuse 2. Cocaine abuse 3. Heroin abuse Lab Data Attestation: I reviewed the patient's lab results. Labs: Laboratory Results - last 24 hr 10/10/20 10/10/20 10/10/20 16:10 16:10 16:10 WBC 8.0 RBC 4.30 Hgb 10.4 L Hct 32.7 L MCV 76.0 L MCH 24.2 L MCHC 31.8 L RDW Std Deviation 45.1 H RDW Coeff of Swapnil 16.5 H Plt Count 412 MPV 9.4 Immature Gran % (Auto) 0.300 Neut % (Auto) 60.7 Lymph % (Auto) 31.7 [place] % (Auto) 4.8 Eos % (Auto) 2.0 Baso % (Auto) 0.5 Absolute Neuts (auto) 4.8 Absolute Lymphs (auto) 2.52 Nucleated RBC % 0 Sodium 140 Potassium 3.8 Chloride 107 Carbon Dioxide 28.0 Anion Gap 5 BUN 14 Creatinine 0.66 Estim Creat Clear Calc 85.27 Est GFR (MDRD) Af Amer 130 Est GFR (MDRD) Non-Af 107 BUN/Creatinine Ratio 21.1 H Glucose 111 H Calcium 8.5 Total Bilirubin 0.30 AST 15 ALT 18 Alkaline Phosphatase 74 Total Protein 7.7 Albumin 3.3 Globulin 4.4 H Albumin/Globulin Ratio 0.8 L Serum , Qual NEGATIVE Urine Color Urine Clarity Urine pH Ur Specific [place] Urine Protein Urine Glucose (UA) Urine Ketones Urine Occult Blood Urine Nitrite Urine Bilirubin Urine Urobilinogen Ur Leukocyte Esterase Urine RBC Urine WBC Ur Squamous Epith Cells Calcium Oxalate Crystal Urine Bacteria Urine Mucus Urine Opiates Screen Urine Methadone Screen Ur Barbiturates Screen Ur Phencyclidine Scrn Ur Amphetamines Screen U Methamphetamin-MDMA U Benzodiazepines Scrn Urine Cocaine Screen U Cannabinoids Screen Ur Drug Screen Comment Ethyl Alcohol 10/10/20 10/10/20 10/10/20 16:10 16:20 16:20 WBC RBC Hgb Hct MCV MCH MCHC RDW Std Deviation RDW Coeff of Swapnil Plt Count MPV Immature Gran % (Auto) Neut % (Auto) Lymph % (Auto) [place] % (Auto) Eos % (Auto) Baso % (Auto) Absolute Neuts (auto) Absolute Lymphs (auto) Nucleated RBC % Sodium Potassium Chloride Carbon Dioxide Anion Gap BUN Creatinine Estim Creat Clear Calc Est GFR (MDRD) Af Amer Est GFR (MDRD) Non-Af BUN/Creatinine Ratio Glucose Calcium Total Bilirubin AST ALT Alkaline Phosphatase Total Protein Albumin Globulin Albumin/Globulin Ratio Serum , Qual Urine Color Yellow Urine Clarity Clear Urine pH 6.0 Ur Specific [place] 1.020 Urine Protein 15 H Urine Glucose (UA) Normal Urine Ketones 5 H Urine Occult Blood Negative Urine Nitrite Negative Urine Bilirubin Negative Urine Urobilinogen 1 H Ur Leukocyte Esterase 100 H Urine RBC 0 SEEN Urine WBC 0-5 SEEN Ur Squamous Epith Cells 0-5 SEEN Calcium Oxalate Crystal RARE Urine Bacteria RARE Urine Mucus 3+ Urine Opiates Screen NEGATIVE Urine Methadone Screen NEGATIVE Ur Barbiturates Screen NEGATIVE Ur Phencyclidine Scrn NEGATIVE Ur Amphetamines Screen NEGATIVE U Methamphetamin-MDMA NEGATIVE U Benzodiazepines Scrn NEGATIVE Urine Cocaine Screen POSITIVE H U Cannabinoids Screen NEGATIVE Ur Drug Screen Comment Ethyl Alcohol < 3.0 Discharge Plan Disposition Disposition: Acute Care Hospital [facility] Discharge Date/Time: 10/10/20 17:25
--- NOTE | 2020-10-10 16:03 | CM.ED ---
Social Work Consult: Substance Abuse Telephone call to [employer], Ana. Ana updated on patient plan for admission [facility] Sharon LOMBARDI, SEBASTIEN-S
[2020-10-10] MEDS: Ondansetron 4 MG/2 ML Vial IV (16:13)
[2020-10-10] MEDS: LORazepam 2 MG/ML Syringe 1 MG IV (16:13)
[2020-10-10 16:23] LABS: Absolute Lymphocyte Count 2.52 X10^3/uL (0.83-4.51); Absolute Neutrophil Count 4.8 X10^3/uL (2.0-7.7); Basophil# 0.04 X10^3/uL; Basophil% 0.5 % (0-1); Eosinophil# 0.16 X10^3/uL; Hematocrit 32.7 % (37-47); Hemoglobin 10.4 g/dL (12.0-15.0); Lymphocyte # 2.52 X10^3/ul (0.83-4.51); Lymphocyte % 31.7 % (19-41); Mean Corp Hgb Conc 31.8 g/dL (32-36); Mean Corpuscular Hgb 24.2 pg (27.0-32.0); Mean Platelet Vol. 9.4 fl (6.2-12.0); Monocyte# 0.38 X10^3/uL; Monocyte% 4.8 % (0-10); NRBC Flagged by Analyzer 0 % (0-5); Neutrophil # 4.84 X10^3/uL (2.7-7.7); Neutrophil % 60.7 % (47-70); Platelet Count 412 K/mm3 (150-450); RBC Distribution Width CV 16.5 % (11.6-14.6); RBC Distribution Width SD 45.1 fl (35.1-43.9)
[2020-10-10 16:31] LABS: Red Blood Cells-Urine 0 SEEN /hpf (0-5)
[2020-10-10 16:36] LABS: Internal QC Validated? YES +Cl - CLEAR BKGD; Pregnancy, Serum, hCG Quali. NEGATIVE Negative
[2020-10-10 16:37] LABS: Color, Urine Yellow (Yellow); Glucose, Dipstick Normal (Normal); Ketone-Dipstick 5 mg/dl (Negative); Leukocyte Esterase-Dipstick 100 /ul (Negative); Nitrite-Dipstick Negative (Negative); Occult Blood-Urine Negative /ul (Negative); Protein-Dipstick 15 mg/dl (Negative); Urine Bilirubin Dipstick Negative (Negative); Urine Clarity Clear (Clear); Urine Urobilinogen 1 mg/dl (Normal)
[2020-10-10 16:40] LABS: Mucous, Urine 3+ /hpf (<or=2+); Squamous Epithelial Cells - UA 0-5 SEEN /hpf (5-10); White Blood Cells 0-5 SEEN /hpf (0-5)
[2020-10-10 16:41] LABS: Bacteria RARE /hpf (None Seen); Calcium Oxalate Crystals Ur RARE /hpf (<or=2+)
[2020-10-10 16:43] LABS: Alcohol, Blood (Medical)-Serum < 3.0 mg/dL
[2020-10-10 16:44] LABS: ALB/GLOB Ratio 0.8 RATIO (0.9-2.4); AST(SGOT) 15 U/L (15-37); Alanine Aminotransfer ALT/SGPT 18 U/L (13-56); Albumin, Serum 3.3 g/dL (3.2-5.0); Alkaline Phosphatase 74 U/L (45-117); Anion Gap 5 (5-15); BUN 14 mg/dL (7-18); BUN/Creat Ratio 21.1 RATIO (10-20); Calcium,Total 8.5 mg/dL (8.5-10.1); Chloride 107 mmol/L (98-107); Creatinine, Serum 0.66 mg/dL (0.55-1.02); EST Glomerular Filtration Rate 107 mL/min (>60); Est Glom Filt Rate - Afr Amer 130 mL/min (>60); Estimated Creatinine Clearance 85.27 ml/min; Globulin 4.4 g/dL (2.2-4.2); Glucose 111 mg/dL (74-106); Potassium 3.8 mmol/L (3.5-5.1); Protein, Total 7.7 g/dL (6.4-8.2); Sodium Level 140 mmol/L (136-145)
[2020-10-10 16:55] LABS: Amphetamine Urine VISTA NEGATIVE (<1000 ng/mL); Barbiturate Urine VISTA NEGATIVE (< 200 ng/mL); Benzodiazepine Urine VISTA NEGATIVE (< 200 ng/mL); Cocaine Urine VISTA POSITIVE (< 300 ng/mL); Ecstacy Urine VISTA NEGATIVE (< 500 ng/mL); Methadone Urine VISTA NEGATIVE (< 300 ng/mL); PCP Urine VISTA NEGATIVE (< 25 ng/mL); THC Urine VISTA NEGATIVE (< 50 ng/mL); Vista UDS pH Range 5
--- NOTE | 2020-10-10 16:56 | HP.PCM.HOS_ITS ---
HPI - General General Date of Admission: 10/10/20 HPI Narrative The patient is a 35 y/o F w/ PMHx: Polysubstance abuse (EtOH beer 12 pack/day, Fentanyl/crack/heroin snorted w/ last usage for all ~22 hours prior to ED evaluation), Tobacco use, Hepatitis C (from recent 08/28/20 evaluation) recent admission 08/2020 for withdrawal treatment who now re-presents to the [facility] ED on 10/10/20 with history of recurrent EtOH abuse of at least again 12 beers per day in addition to ongoing polysubstance abuse w/ noted acute EtOH withdrawal and acute opiate withdrawal, onset starting over the last 24, progressively worsening with nausea, tremors, agitation and intermittent fatigue, diaphoresis, body aches, piloerection, restless legs, tactile disturbances. Patient upon last evaluation with also substance user with loss of custody of all her children except one at that time, a baby who was also to be removed from that home environment. Work-up in the ED included T 98, heart rate 87, BP 139/85, respiratory rate 18, 98% on room air, CBC with WC 8, hemoglobin 10.4, platelet 412 without marked shift, CMP with glucose 111, not marked appearing hepatic profile, negative serum testing, urinalysis with no obvious evidence of UTI, urine drug screen with positive cocaine, ethyl alcohol less than 3. [facility] Medical History Alcohol abuse Microcytic anemia Opiate dependence Tobacco use unable to obtain Home Medications NK 10/10/20 [History Last Taken Unknown] Allergy/AdvReac Type Severity Reaction Status Date / Time Penicillins [PCN] Allergy Anaphylaxis Verified 10/10/20 15:42 Sulfa (Sulfonamide Allergy Anaphylaxis Verified 10/10/20 15:42 Antibiotics) other (Patient denies any marked maternal or paternal family history including heart disease, diabetes, cancer.) Surgical History (Updated 10/10/20 @ 15:41 by Fatuma Sanabria) H/O: Social History (Updated 10/10/20 @ 17:[address] Brisa Michelle MD) household members: spouse number of children: 5 Smoking Status: Current every day smoker alcohol intake: current alcohol intake frequency: other Alcohol type: beer details: ~ 12 beers daily. substance use type: crack/cocaine and heroin ROS ROS Narrative Admission Review of Systems: CONSTITUTIONAL: No fever, chills, +weight loss, weakness or fatigue. HEENT: Eyes: No visual loss, blurred vision, double vision or yellow sclerae. Ears, Nose, Throat: No hearing loss, sneezing, congestion, runny nose or sore throat. SKIN:+ rash or itching, lesions, wounds. CARDIOVASCULAR: No chest pain, chest pressure or chest discomfort, palpitations, edema, orthopnea, syncopal events. RESPIRATORY: No shortness of breath, cough or sputum, wheezing, hemoptysis. GASTROINTESTINAL: + anorexia, nausea, vomiting, diarrhea, abdominal pain, No melena, BRBPR. GENITOURINARY: No dysuria, frequency, urgency or retention. NEUROLOGICAL: + Tactile disturbances, tremors, No headache, dizziness, syncope, paralysis, ataxia, focal weakness, change in bowel or bladder control, seizure. MUSCULOSKELETAL:+ muscle, back pain, joint pain or stiffness. HEMATOLOGIC: + anemia, bleeding or bruising. LYMPHATICS: No enlarged nodes. No history of splenectomy. PSYCHIATRIC: + history of depression or anxiety. ENDOCRINOLOGIC: No reports of sweating, cold or heat intolerance. No polyuria or polydipsia. ALLERGIES: No history of asthma, hives, eczema or rhinitis. Vital Signs Vital Signs Vital Signs: 10/10/20 15:33 10/10/20 15:39 Temperature 98 F 98.0 F Temperature Source Temporal Temporal Pulse Rate 97 97 Respiratory Rate 18 18 Blood Pressure 139/89 H 139/85 H Blood Pressure Mean 105 103 Blood Pressure Source Monitor Blood Pressure Position Sitting Blood Pressure Location Left Arm Pulse Ox 98 98 Oxygen Delivery Method Room Air Room Air Physical Exam Narrative Physical Examination: General: awake, alert, oriented x 3 and cooperative, anxious, improved appearance since prior presentation, moving, mildly tremulous, agitated. Skin: normal color, turgor, no icterus, cyanosis except noted diffuse extremity and facial picked regions, no obvious infection, somewhat improved since prior evaluation. HEENT: AT/NC, EOMI, PERRLA, dry MM, rhinorrhea evident, no carotid bruits or JVD noted. Lungs: Diminished breath sounds, greater bases, appropriate effort, no rales, ronchi or wheezing. Heart: Mildly tachycardic with regular rhythm; no gallop, rub audible. Abdomen: soft, thin habitus, NTTP, ND, normal BS, positive HM. Extremities: no cyanosis, clubbing, or edema. Neurological: patient awake, alert, oriented as noted; cognitive function intact but anxious and agitated; pupils equally reactive to light and accomodation; cranial nerves II-XII grossly normal, moving all 4 extremities, no focal deficits, strength moderately decreased given acute presentation, mild tremors evident. Psychiatric: affect appears anxious, agitated, no acute evidence of depressive feelings. Lab / Micro Data Result Diagrams: 10/10/20 16:10 10/10/20 16:10 Labs: Laboratory Results - last 24 hr 10/10/20 10/10/20 10/10/20 16:10 16:10 16:10 WBC 8.0 RBC 4.30 Hgb 10.4 L Hct 32.7 L MCV 76.0 L MCH 24.2 L MCHC 31.8 L RDW Std Deviation 45.1 H RDW Coeff of Swapnil 16.5 H Plt Count 412 MPV 9.4 Immature Gran % (Auto) 0.300 Neut % (Auto) 60.7 Lymph % (Auto) 31.7 [place] % (Auto) 4.8 Eos % (Auto) 2.0 Baso % (Auto) 0.5 Absolute Neuts (auto) 4.8 Absolute Lymphs (auto) 2.52 Nucleated RBC % 0 Sodium 140 Potassium 3.8 Chloride 107 Carbon Dioxide 28.0 Anion Gap 5 BUN 14 Creatinine 0.66 Estim Creat Clear Calc 85.27 Est GFR (MDRD) Af Amer 130 Est GFR (MDRD) Non-Af 107 BUN/Creatinine Ratio 21.1 H Glucose 111 H Calcium 8.5 Total Bilirubin 0.30 AST 15 ALT 18 Alkaline Phosphatase 74 Total Protein 7.7 Albumin 3.3 Globulin 4.4 H Albumin/Globulin Ratio 0.8 L Serum , Qual NEGATIVE Urine Color Urine Clarity Urine pH Ur Specific [place] Urine Protein Urine Glucose (UA) Urine Ketones Urine Occult Blood Urine Nitrite Urine Bilirubin Urine Urobilinogen Ur Leukocyte Esterase Urine RBC Urine WBC Ur Squamous Epith Cells Calcium Oxalate Crystal Urine Bacteria Urine Mucus Urine Opiates Screen Urine Methadone Screen Ur Barbiturates Screen Ur Phencyclidine Scrn Ur Amphetamines Screen U Methamphetamin-MDMA U Benzodiazepines Scrn Urine Cocaine Screen U Cannabinoids Screen Ur Drug Screen Comment Ethyl Alcohol 10/10/20 10/10/20 10/10/20 16:10 16:20 16:20 WBC RBC Hgb Hct MCV MCH MCHC RDW Std Deviation RDW Coeff of Swapnil Plt Count MPV Immature Gran % (Auto) Neut % (Auto) Lymph % (Auto) [place] % (Auto) Eos % (Auto) Baso % (Auto) Absolute Neuts (auto) Absolute Lymphs (auto) Nucleated RBC % Sodium Potassium Chloride Carbon Dioxide Anion Gap BUN Creatinine Estim Creat Clear Calc Est GFR (MDRD) Af Amer Est GFR (MDRD) Non-Af BUN/Creatinine Ratio Glucose Calcium Total Bilirubin AST ALT Alkaline Phosphatase Total Protein Albumin Globulin Albumin/Globulin Ratio Serum , Qual Urine Color Yellow Urine Clarity Clear Urine pH 6.0 Ur Specific [place] 1.020 Urine Protein 15 H Urine Glucose (UA) Normal Urine Ketones 5 H Urine Occult Blood Negative Urine Nitrite Negative Urine Bilirubin Negative Urine Urobilinogen 1 H Ur Leukocyte Esterase 100 H Urine RBC 0 SEEN Urine WBC 0-5 SEEN Ur Squamous Epith Cells 0-5 SEEN Calcium Oxalate Crystal RARE Urine Bacteria RARE Urine Mucus 3+ Urine Opiates Screen NEGATIVE Urine Methadone Screen NEGATIVE Ur Barbiturates Screen NEGATIVE Ur Phencyclidine Scrn NEGATIVE Ur Amphetamines Screen NEGATIVE U Methamphetamin-MDMA NEGATIVE U Benzodiazepines Scrn NEGATIVE Urine Cocaine Screen POSITIVE H U Cannabinoids Screen NEGATIVE Ur Drug Screen Comment Ethyl Alcohol < 3.0 Assessment & Plan Assessment/Plan (1) Alcohol withdrawal: QUALIFIERS: Complication of substance-induced condition: with unspecified complication Qualified Code(s): F10.239 - Alcohol dependence with withdrawal, unspecified (2) Opioid withdrawal: PLAN: The patient is a 35 y/o F w/ PMHx: Polysubstance abuse (EtOH beer 12 pack/day, Fentanyl/crack/heroin snorted w/ last usage for all ~22 hours prior to ED evaluation), Tobacco use, Hepatitis C (from recent 08/28/20 evaluation) recent admission 08/2020 for withdrawal treatment who now re-presents to the [facility] ED on 10/10/20 with history of recurrent EtOH abuse of at least again 12 beers per day in addition to ongoing polysubstance abuse w/ noted acute EtOH withdrawal and acute opiate withdrawal. 1. Acute EtOH Withdrawal: Will admit to adequate surgical floor, routine labs obtained in the ED upon presentation. Given interest in sobriety, will initiate and continue on protocol with taper course of Phenobarbital, scheduled gabapentin for seizure prophylaxis, as needed Catapres, Bentyl, Vistaril, IV fluids, IV antiemetics, Tylenol as needed for pain. Will consult Case management for assistance for transition to next level of rehabilitation care. Mag, phos pending. Maintain on CIWA protocol concurrently. 2. Acute Opiate Withdrawal: Given patient concurrent usage of several opiates, will additionally initiate and continue on protocol with tapering course of Subutex, as needed tylenol, ibuprofen, bowel regimen, gabapentin, Bentyl, Vistaril, methocarbamol, clonidine, PRN nightly trazodone for insomnia, IV fluids, IV antiemetics. Once patient clinically improved and completion of taper nearing will plan consultation with case management for transition to next level of rehabilitation care. 3. Polysubstance Abuse, Chronic w/ Hepatitis C: We will obtain HIV and hepatitis panel to assess for any recent co-infection given ongoing usage. Still denying IVDA. Patient currently not candidate for hep C treatment currently as needs to be clean, sober x 6 months, documented attendance NA or AA meetings, counseling and ongoing negative drug screens. 4. Elevated BP without hypertensive diagnosis: Patient elevated blood pressures upon presentation, similar presentation last evaluation, will continue to trend, likely related with acute withdrawal presentation, if appropriate will add oral regimen, as needed IV hydralazine in interim. 5. Chronic microcytic anemia, Fe deficiency anemia: Admission Hgb 10.4, recent Fe evaluation w08/29/20 Fe 16, TIBC 323, Fe saturation 5, Ferritin 5, will not repeat, poor follow-up. 6. Tobacco Abuse: Encouraged cessation, inpatient consultation per RT, NR if desired. 7. DVT prophylaxis: Low risk, encourage ambulation. Visit Charges Inpatient E&M: 19268 Init Hosp L3
[2020-10-10 17:24] VITALS: BP 139/85; PULSE 97; RESP 18; TEMP 36.7; O2SAT 98
[2020-10-10] MEDS: Lactated Ringers 1,000 ML 125 ML IV (17:39)
[2020-10-10 17:42] VITALS: BMI 18.8
[2020-10-10 17:45] VITALS: BP 132/78; PULSE 107; RESP 18; TEMP 36.8; O2SAT 96
[2020-10-10] MEDS: Ibuprofen 600 MG Tablet PO (18:12)
[2020-10-10] MEDS: Phenobarbital 32.4 MG Tablet 64.8 MG PO ×2 (18:12→21:32)
[2020-10-10] MEDS: Buprenorphine HCl 2 MG TAB.SUBL SL (18:12)
[2020-10-10 21:21] VITALS: BP 143/98; PULSE 93; RESP 16; TEMP 36.7; O2SAT 100
[2020-10-10 21:22] LABS: HIV - WCH Non-Reactive (Nonreactive)
[2020-10-10] MEDS: hydrOXYzine PAM 25 MG Capsule 50 MG PO (21:32)
[2020-10-10] MEDS: Nicotine Polacrilex 2 MG GUM PO (21:32)
[2020-10-10] MEDS: traZODone 100 MG Tablet PO (21:39)
[2020-10-10 22:29] VITALS: O2SAT 98
[2020-10-11 01:22] VITALS: BP 117/85; PULSE 76; RESP 16; TEMP 36.7; O2SAT 100
[2020-10-11] MEDS: 0.9% Saline Lock 10 ML Syringe IV (01:25)
[2020-10-11] MEDS: Buprenorphine HCl 2 MG TAB.SUBL SL ×3 (01:29→17:35)
[2020-10-11] MEDS: Phenobarbital 32.4 MG Tablet 64.8 MG PO ×6 (01:29→21:26)
[2020-10-11 05:27] VITALS: BP 125/76; PULSE 84; RESP 16; TEMP 36.6; O2SAT 100
[2020-10-11] MEDS: Acetaminophen 500 MG Tablet PO (05:35)
--- NOTE | 2020-10-11 06:21 | PCM.PN.HOSP ---
Subjective Subjective: Patient with no acute events overnight per self and per nursing report. Patient more calm, very fatigued this morning and now she wants to sleep more. She does admit to mild headache but otherwise no acute complaints and withdrawal symptoms are improving. Patient denies fevers, chills, nausea, emesis, abdominal pain, chest pain or dyspnea. Objective Data Objective Data Vital Signs: Vital Signs Temp Pulse Resp BP Pulse Ox 97.8 F 84 16 125/76 H 100 10/11/20 05:27 10/11/20 05:27 10/11/20 05:27 10/11/20 05:27 10/11/20 05:27 Oxygen Delivery Method Room Air Weight: 99 lb 14.4 oz Body Mass Index (BMI) 18.8 Intake & Output: Intake and Output for Last 24 Hours 10/09/20 10/10/20 10/11/20 23:59 23:59 23:59 Intake Total 480 / 780 1540 / 1540 Balance 480 / 780 1540 / 1540 Lab / Micro Data Result Diagrams: 10/10/20 16:10 10/10/20 16:10 Labs: Laboratory Results - last 24 hr 10/10/20 10/10/20 10/10/20 16:10 16:10 16:10 WBC 8.0 RBC 4.30 Hgb 10.4 L Hct 32.7 L MCV 76.0 L MCH 24.2 L MCHC 31.8 L RDW Std Deviation 45.1 H RDW Coeff of Swapnil 16.5 H Plt Count 412 MPV 9.4 Immature Gran % (Auto) 0.300 Neut % (Auto) 60.7 Lymph % (Auto) 31.7 Parke % (Auto) 4.8 Eos % (Auto) 2.0 Baso % (Auto) 0.5 Absolute Neuts (auto) 4.8 Absolute Lymphs (auto) 2.52 Nucleated RBC % 0 Sodium 140 Potassium 3.8 Chloride 107 Carbon Dioxide 28.0 Anion Gap 5 BUN 14 Creatinine 0.66 Estim Creat Clear Calc 85.27 Est GFR (MDRD) Af Amer 130 Est GFR (MDRD) Non-Af 107 BUN/Creatinine Ratio 21.1 H Glucose 111 H Calcium 8.5 Phosphorus Magnesium Total Bilirubin 0.30 AST 15 ALT 18 Alkaline Phosphatase 74 Total Protein 7.7 Albumin 3.3 Globulin 4.4 H Albumin/Globulin Ratio 0.8 L Serum , Qual NEGATIVE Urine Color Urine Clarity Urine pH Ur Specific [place] Urine Protein Urine Glucose (UA) Urine Ketones Urine Occult Blood Urine Nitrite Urine Bilirubin Urine Urobilinogen Ur Leukocyte Esterase Urine RBC Urine WBC Ur Squamous Epith Cells Calcium Oxalate Crystal Urine Bacteria Urine Mucus Urine Opiates Screen Urine Methadone Screen Ur Barbiturates Screen Ur Phencyclidine Scrn Ur Amphetamines Screen U Methamphetamin-MDMA U Benzodiazepines Scrn Urine Cocaine Screen U Cannabinoids Screen Ur Drug Screen Comment Ethyl Alcohol HIV 1&2 Antibody 10/10/20 10/10/20 10/10/20 16:10 16:10 16:10 WBC RBC Hgb Hct MCV MCH MCHC RDW Std Deviation RDW Coeff of Swapnil Plt Count MPV Immature Gran % (Auto) Neut % (Auto) Lymph % (Auto) Parke % (Auto) Eos % (Auto) Baso % (Auto) Absolute Neuts (auto) Absolute Lymphs (auto) Nucleated RBC % Sodium Potassium Chloride Carbon Dioxide Anion Gap BUN Creatinine Estim Creat Clear Calc Est GFR (MDRD) Af Amer Est GFR (MDRD) Non-Af BUN/Creatinine Ratio Glucose Calcium Phosphorus 4.0 Magnesium 2.0 Total Bilirubin AST ALT Alkaline Phosphatase Total Protein Albumin Globulin Albumin/Globulin Ratio Serum , Qual Urine Color Urine Clarity Urine pH Ur Specific [place] Urine Protein Urine Glucose (UA) Urine Ketones Urine Occult Blood Urine Nitrite Urine Bilirubin Urine Urobilinogen Ur Leukocyte Esterase Urine RBC Urine WBC Ur Squamous Epith Cells Calcium Oxalate Crystal Urine Bacteria Urine Mucus Urine Opiates Screen Urine Methadone Screen Ur Barbiturates Screen Ur Phencyclidine Scrn Ur Amphetamines Screen U Methamphetamin-MDMA U Benzodiazepines Scrn Urine Cocaine Screen U Cannabinoids Screen Ur Drug Screen Comment Ethyl Alcohol < 3.0 HIV 1&2 Antibody Non-Reactive 10/10/20 10/10/20 16:20 16:20 WBC RBC Hgb Hct MCV MCH MCHC RDW Std Deviation RDW Coeff of Swapnil Plt Count MPV Immature Gran % (Auto) Neut % (Auto) Lymph % (Auto) Parke % (Auto) Eos % (Auto) Baso % (Auto) Absolute Neuts (auto) Absolute Lymphs (auto) Nucleated RBC % Sodium Potassium Chloride Carbon Dioxide Anion Gap BUN Creatinine Estim Creat Clear Calc Est GFR (MDRD) Af Amer Est GFR (MDRD) Non-Af BUN/Creatinine Ratio Glucose Calcium Phosphorus Magnesium Total Bilirubin AST ALT Alkaline Phosphatase Total Protein Albumin Globulin Albumin/Globulin Ratio Serum , Qual Urine Color Yellow Urine Clarity Clear Urine pH 6.0 Ur Specific [place] 1.020 Urine Protein 15 H Urine Glucose (UA) Normal Urine Ketones 5 H Urine Occult Blood Negative Urine Nitrite Negative Urine Bilirubin Negative Urine Urobilinogen 1 H Ur Leukocyte Esterase 100 H Urine RBC 0 SEEN Urine WBC 0-5 SEEN Ur Squamous Epith Cells 0-5 SEEN Calcium Oxalate Crystal RARE Urine Bacteria RARE Urine Mucus 3+ Urine Opiates Screen NEGATIVE Urine Methadone Screen NEGATIVE Ur Barbiturates Screen NEGATIVE Ur Phencyclidine Scrn NEGATIVE Ur Amphetamines Screen NEGATIVE U Methamphetamin-MDMA NEGATIVE U Benzodiazepines Scrn NEGATIVE Urine Cocaine Screen POSITIVE H U Cannabinoids Screen NEGATIVE Ur Drug Screen Comment Ethyl Alcohol HIV 1&2 Antibody Physical Exam Narrative Physical Examination: General: awake, alert, oriented x 3 and cooperative, fatigued, asking if she can go back to bed, no complaints at this time. Skin: normal color, turgor, no icterus, cyanosis except noted diffuse extremity and facial picked regions, no obvious infection, somewhat improved since prior evaluation. HEENT: AT/NC, EOMI, PERRLA, improved MMM. Lungs: Diminished breath sounds, greater bases, appropriate effort, no rales, ronchi or wheezing. Heart: Regular rate with regular rhythm; no gallop, rub audible. Abdomen: soft, thin habitus, NTTP, ND, normal BS. Extremities: no cyanosis, clubbing, or edema. Neurological: patient awake, alert, oriented as noted; cognitive function intact, currently fatigued; pupils equally reactive to light and accomodation; cranial nerves II-XII grossly normal, moving all 4 extremities, no focal deficits, strength improved, mildly decreased, minimal tremors currently noted. Psychiatric: affect appears fatigued, markedly less anxious, no acute evidence of depressive feelings. Assessment & Plan Assessment/Plan (1) Alcohol withdrawal: QUALIFIERS: Complication of substance-induced condition: with unspecified complication Qualified Code(s): F10.239 - Alcohol dependence with withdrawal, unspecified (2) Opioid withdrawal: PLAN: The patient is a 35 y/o F w/ PMHx: Polysubstance abuse (EtOH beer 12 pack/day, Fentanyl/crack/heroin snorted w/ last usage for all ~22 hours prior to ED evaluation), Tobacco use, Hepatitis C (from recent 08/28/20 evaluation) recent admission 08/2020 for withdrawal treatment who now re-presents to the [facility] ED on 10/10/20 with history of recurrent EtOH abuse of at least again 12 beers per day in addition to ongoing polysubstance abuse w/ noted acute EtOH withdrawal and acute opiate withdrawal. 1. Acute EtOH Withdrawal: Admitted to medical surgical floor, routine labs obtained in the ED upon presentation. Given interest in sobriety, initiated and continued on protocol with taper course of Phenobarbital, scheduled gabapentin for seizure prophylaxis, as needed Catapres, Bentyl, Vistaril, IV fluids, IV antiemetics, Tylenol as needed for pain. Will consult Case management for assistance for transition to next level of rehabilitation care. Mag, phos levels normal upon admission. Maintain on CIWA protocol concurrently. Patient interested in consideration prolonged outpatient setting to assure continued sobriety and clean status. Notes recently signed over custody of her baby and now has no custody of any of her 5 children. Her was also admitted for withdrawal EtOH/Opiates but is on a different floor. 2. Acute Opiate Withdrawal: Given patient concurrent usage of several opiates, initiated and continued on protocol with tapering course of Subutex, as needed tylenol, ibuprofen, bowel regimen, gabapentin, Bentyl, Vistaril, methocarbamol, clonidine, PRN nightly trazodone for insomnia, IV fluids, IV antiemetics. Once patient clinically improved and completion of taper nearing will plan consultation with case management for transition to next level of rehabilitation care. 3. Polysubstance Abuse, Chronic w/ Hepatitis C: HIV non-reactive, pending hepatitis panel to assess for any recent co-infection given ongoing usage. Still denying IVDA. Patient currently not candidate for hep C treatment currently as needs to be clean, sober x 6 months, documented attendance NA or AA meetings, counseling and ongoing negative drug screens. 4. Elevated BP without hypertensive diagnosis: Patient elevated blood pressures upon presentation, similar presentation last evaluation, improved w/ withdrawal symptom treatment and reduction, continue PRN hydralazine. 5. Chronic microcytic anemia, Fe deficiency anemia: Admission Hgb 10.4, recent Fe evaluation w/ 08/29/20 Fe 16, TIBC 323, Fe saturation 5, Ferritin 5, will not repeat, poor follow-up. 6. Tobacco Abuse: Encouraged cessation, inpatient consultation per RT, NR if desired. 7. DVT prophylaxis: Low risk, encourage ambulation. Visit Charges Inpatient E&M: 06199 Subs Hosp L2
[2020-10-11 07:03] VITALS: O2SAT 98
[2020-10-11] MEDS: Folic Acid 1 MG Tablet PO (09:20)
[2020-10-11] MEDS: Thiamine Hydrochloride 100 MG Tablet PO (09:20)
[2020-10-11 09:25] VITALS: BP 123/79; PULSE 88; RESP 16; TEMP 36.7; O2SAT 98
[2020-10-11 14:48] VITALS: BP 118/69; PULSE 91; RESP 16; TEMP 36.8; O2SAT 96
[2020-10-11] MEDS: Nicotine Polacrilex 2 MG GUM PO ×2 (17:36→21:29)
[2020-10-11 21:21] VITALS: BP 120/72; PULSE 81; RESP 16; TEMP 36.9; O2SAT 96
[2020-10-11] MEDS: traZODone 100 MG Tablet PO (21:29)
[2020-10-12 02:00] VITALS: BP 116/74; PULSE 80; RESP 16; TEMP 36.6; O2SAT 97
[2020-10-12] MEDS: Buprenorphine HCl 2 MG TAB.SUBL SL ×3 (02:46→17:53)
[2020-10-12] MEDS: Phenobarbital 32.4 MG Tablet 64.8 MG PO ×6 (02:46→21:47)
[2020-10-12 07:17] VITALS: O2SAT 97
[2020-10-12] MEDS: Folic Acid 1 MG Tablet PO (09:09)
[2020-10-12] MEDS: Thiamine Hydrochloride 100 MG Tablet PO (09:09)
[2020-10-12 09:12] VITALS: BP 112/74; PULSE 80; RESP 18; TEMP 36.6; O2SAT 94
--- NOTE | 2020-10-12 10:45 | ADDICTION ---
This telegraphic typewriter installer attempted to meet with PT to conduct ASAM, MSE, AUDIT assessments and to plan for d/c. PT refused to meet with this telegraphic typewriter installer but was agreeable to meet on 10/13/20.
[2020-10-12 13:49] VITALS: BP 107/68; PULSE 79; RESP 18; TEMP 36.8; O2SAT 98
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
[2020-10-12 17:58] VITALS: BP 108/64; PULSE 75; RESP 18; TEMP 36.7; O2SAT 99
[2020-10-12 21:41] VITALS: BP 113/64; PULSE 74; RESP 16; TEMP 36.5; O2SAT 99
[2020-10-12] MEDS: traZODone 100 MG Tablet PO (21:49)
[2020-10-12] MEDS: Nicotine Polacrilex 2 MG GUM PO (21:49)
[2020-10-13] MEDS: Phenobarbital 32.4 MG Tablet 64.8 MG PO ×2 (02:29→08:31)
[2020-10-13 05:45] VITALS: BP 98/62; PULSE 74; RESP 16; TEMP 36.4; O2SAT 99
[2020-10-13] MEDS: Buprenorphine HCl 2 MG TAB.SUBL SL (05:48)
[2020-10-13 08:30] VITALS: BP 116/70; PULSE 77; RESP 18; TEMP 36.4; O2SAT 99
[2020-10-13] MEDS: Thiamine Hydrochloride 100 MG Tablet PO (08:32)
[2020-10-13] MEDS: Folic Acid 1 MG Tablet PO (08:32)
--- NOTE | 2020-10-13 08:38 | ADDICTION ---
This keno writer attempted to meet with PT to conduct ASAM, MSE, AUDIT assessments and to plan for d/c. PT refused to meet with this keno writer but was agreeable to meet on 10/14/20.
[2020-10-13 12:08] LABS: HEPATITIS B SURFACE AG Negative (Negative); Hepatitis B Core AB IgM Negative (Negative); Hepatitis B Core Ab Total Negative (Negative); Hepatitis Be Ab Negative (Negative); Hepatitis Be Ag Negative (Negative)
--- NOTE | 2020-10-13 12:13 | PCM.DC ---
Discharge Instructions Diet Discharge Diet: No restrictions Activity Discharge Activity: Return to Normal Activity Follow Up Care Test Results: Test results from this visit will be discussed in further detail at your follow-up appointment, if applicable. Discharge Plan Admission Admit Date/Time: 10/10/20 17:05 Attending Provider: Raad Miranda Discharge Orders/Prescriptions Prescriptions: New acetaminophen 500 mg Tablet 500 mg PO Q4H PRN PRN (Reason: Temp > 100.4 F) Qty: 0 RF: 0 ibuprofen 600 mg Tablet 600 mg PO Q8H PRN PRN (Reason: PAIN) Qty: 0 RF: 0 multivitamin Tablet 1 tab PO DAILY Qty: 1 RF: 0 Referrals / Follow Up: SEBLE PRECIADO [Other] Disposition Disposition (needs filled in before D/C Order can be placed): Home, self care
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
[2020-10-13] MEDS: Loperamide 2 MG Capsule PO (12:54)
[2020-10-13 15:13] LABS: Hep B Surface Antibodies Non Reactive (.); Hepatitis C Ab >11.0 s/co ratio (0.0-0.9)
== END 2020-10-13 12:59 | disposition home or self-care (01) | DRG 773 ==
LOC: ED 16:12 → PCU 17:17
PROVIDERS: Admitting Provider Family Medicine; Emergency Provider Student in an Organized Health Care Education/Training Program
DX: F11.23 Opioid dependence with withdrawal (principal); F10.239 Alcohol dependence with withdrawal, unspecified; F17.200 Nicotine dependence, unspecified, uncomplicated; F14.10 Cocaine abuse, uncomplicated; B19.20 Unspecified viral hepatitis C without hepatic coma; R03.0 Elevated blood-pressure reading, without diagnosis of hypertension; D50.9 Iron deficiency anemia, unspecified
CPT/HCPCS: 80053; 80307; 81001; 82077; 83735; 84100; 84703; 85025; 86703; 86704; 86705; 86706; 86707; 86803; 87340; 87350; 93005; 99285; J7030; J7120; A4216; J2405

== ENCOUNTER 2021-02-06 07:27 | Observation (INO) | payer MEDICAID, SELFPAY ==
[2021-02-06] VITALS (7 sets, daily range): BP systolic 123–162; BP diastolic 69–119; PULSE 80–96; RESP 16; TEMP 35.8–36.7; O2SAT 98–100; BMI 18.3
--- NOTE | 2021-02-06 07:38 | EKG12_ITS ---
Test Reason : Blood Pressure : / mmHG Vent. Rate : 064 BPM Atrial Rate : 064 BPM P-R Int : 132 ms QRS Dur : 098 ms QT Int : 412 ms P-R-T Axes : 068 053 070 degrees QTc Int : 425 ms Normal sinus rhythm with sinus arrhythmia Normal ECG Confirmed by GEMA DELGADO, SILAS ([id number]), pictures editor HUGO WOODS ([id number]) on 02/09/2021 7:59:32 AM Referred By: QUANG Confirmed By:TING RIBEIRO MD
--- NOTE | 2021-02-06 07:38 | EX.ED.SAOD ---
HPI History of Present Illness Chief Complaint: Substance Abuse Informant: patient Narrative Narrative: 35-year-old female requesting detox from opiates benzodiazepines and alcohol. Patient has been through rehab before. She states she currently lives in [place]. She took an Uber from [place] to [place]. She denies any legal issues. She states that her 5 children are currently living with her grandparents. She states that she is tired of the lifestyle and wants to get her children back. She is on Suboxone which was prescribed by a provider in [place]. She notes underlying anxiety disorder which is heightened with her withdrawal. She takes gabapentin for that. She smokes heroin. She denies any IVD. She states that she is essentially homeless because she has been staying with family and they are tired of her behaviors. She denies any recent illnesses. Her last used of anything was about 13 hours ago. PFSH PFSH Medical History Alcohol abuse Anxiety Microcytic anemia Opiate dependence Smoker Substance abuse Tobacco use Home Medications buprenorphine-naloxone 2 tab SUBLINGUAL DAILY 02/06/21 [History Last Taken Unknown] gabapentin 300 mg PO TID 02/06/21 [History Last Taken Unknown] Allergy/AdvReac Type Severity Reaction Status Date / Time Penicillins [PCN] Allergy Anaphylaxis Verified 02/06/21 07:28 Sulfa (Sulfonamide Allergy Anaphylaxis Verified 02/06/21 07:28 Antibiotics) diphenhydramine AdvReac Other Verified 02/06/21 07:28 [From Benadryl] Surgical History H/O: Social History household members: spouse number of children: 5 Smoking Status: Current every day smoker tobacco type: cigarettes alcohol intake: current alcohol intake frequency: other Alcohol type: beer details: ~ 12 beers daily. substance use type: crack/cocaine and heroin ROS ROS ED Constitutional Constitutional ED: Denies chills or weight loss Eyes Eyes: Denies change in vision or diplopia ENT ENT ED: Denies ear pain, rhinorrhea or sore throat Cardiovascular Cardiovascular: Denies chest pain, orthopnea, palpitations or racing heartbeat Respiratory/Chest Respiratory/Chest: Denies cough, dyspnea or orthopnea Gastrointestinal Gastrointestinal: Reports nausea; Denies abdominal pain, diarrhea or vomiting Genitourinary Genitourinary ED: Denies dysuria, hematuria or urinary frequency Musculoskeletal Musculoskeletal: Reports myalgias; Denies arthralgias Integumentary Denies abscess or rash Neurologic Neurologic: Denies headache(s) or weakness Psychiatric Psychiatric: Reports anxiety and depression; Denies suicidal ideation or suicidal thoughts Endocrine Endocrinology: Denies polydipsia, polyphagia or polyuria Allergic/Immunologic Allergic/Immunologic ED: Denies mouth swelling, tongue swelling or urticaria EXAM Physical Exam Const Vital Signs: 02/06/21 07:28 Temperature 97.8 F Temperature Source Oral Pulse Rate 96 Respiratory Rate 16 Blood Pressure 162/119 H Blood Pressure Mean 133 Pulse Ox 100 Oxygen Delivery Method Room Air Positive well nourished and well developed General Appearance ED: well developed HEENT Reports normocephalic, head/scalp atraumatic and moist mucous membranes Eyes PERRL and EOMs intact bilaterally Neck no lymphadenopathy, supple and no JVD Resp normal respiratory effort and clear to auscultation bilaterally Cardio regular rate, regular rhythm and no murmurs GI normal to inspection, nondistended, normoactive bowel sounds and non-tender Palpation: soft Back/Spine no CVA tenderness and normal ROM Extremity normal to inspection General Extremety ED: Negative for edema General Extremity: Negative for edema Neuro oriented x3 and CN's II-XII intact bilaterally Sensorium / Orientation: alert Motor Exam: strength 5/5 throughout Psych mental status grossly normal Mood & Affect: Negative for depressed or tearful Skin no rashes or lesions noted and no wounds MDM MDM MDM Narrative Medical decision making narrative: Patient is agreeable to the rules of the [facility] admission. She has tried several times to give us a urine specimen. I do not think this will change her disposition. Lab Data Attestation: I reviewed the patient's lab results. Labs: Laboratory Results - last 24 hr 02/06/21 02/06/21 02/06/21 08:11 08:11 08:11 WBC 9.6 RBC 4.56 Hgb 11.1 L Hct 36.0 L MCV 78.9 L MCH 24.3 L MCHC 30.8 L RDW Std Deviation 46.9 H RDW Coeff of Swapnil 16.4 H Plt Count 490 H MPV 8.7 Immature Gran % (Auto) 0.300 Neut % (Auto) 68.1 Lymph % (Auto) 23.0 [place] % (Auto) 6.2 Eos % (Auto) 2.0 Baso % (Auto) 0.4 Absolute Neuts (auto) 6.6 Absolute Lymphs (auto) 2.21 Nucleated RBC % 0 Sodium 136 Potassium 3.1 L Chloride 104 Carbon Dioxide 27.0 Anion Gap 5 BUN 14 Creatinine 0.58 Estim Creat Clear Calc 93.82 Est GFR (MDRD) Af Amer 151 Est GFR (MDRD) Non-Af 125 BUN/Creatinine Ratio 24.1 H Glucose 107 H Calcium 8.6 Total Bilirubin 0.40 AST 17 ALT 25 Alkaline Phosphatase 82 Total Protein 8.1 Albumin 3.2 Globulin 4.9 H Albumin/Globulin Ratio 0.7 L Ethyl Alcohol < 3.0 EKG Initial EKG: Attestation: I personally reviewed and interpreted this EKG as follows: Comments: Normal sinus rhythm with a ventricular rate of 64 bpm. No concerning features of ACS. Discharge Plan Dx/Rx/DC Orders Clinical Impression: Opioid withdrawal, Alcohol withdrawal, Benzodiazepine abuse Disposition Disposition: Acute Care Hospital [facility]
[2021-02-06 08:20] LABS: Absolute Lymphocyte Count 2.21 X10^3/uL (0.83-4.51); Absolute Neutrophil Count 6.6 X10^3/uL (2.0-7.7); Basophil# 0.04 X10^3/uL; Basophil% 0.4 % (0-1); Eosinophil# 0.19 X10^3/uL; Hemoglobin 11.1 g/dL (12.0-15.0); Lymphocyte # 2.21 X10^3/ul (0.83-4.51); Mean Corp Hgb Conc 30.8 g/dL (32-36); Mean Corpuscular Hgb 24.3 pg (27.0-32.0); Mean Corpuscular Volume 78.9 fL (81-99); Mean Platelet Vol. 8.7 fl (6.2-12.0); Monocyte% 6.2 % (0-10); NRBC Flagged by Analyzer 0 % (0-5); Neutrophil # 6.55 X10^3/uL (2.7-7.7); Neutrophil % 68.1 % (47-70); Platelet Count 490 K/mm3 (150-450); RBC Distribution Width CV 16.4 % (11.6-14.6); RBC Distribution Width SD 46.9 fl (35.1-43.9); Red Blood Count 4.56 M/mm3 (4.2-5.4); White Blood Count 9.6 K/mm3 (4.4-11.0)
[2021-02-06 08:39] LABS: ALB/GLOB Ratio 0.7 RATIO (0.9-2.4); AST(SGOT) 17 U/L (15-37); Alanine Aminotransfer ALT/SGPT 25 U/L (13-56); Albumin, Serum 3.2 g/dL (3.2-5.0); Alkaline Phosphatase 82 U/L (45-117); Anion Gap 5 (5-15); BUN 14 mg/dL (7-18); BUN/Creat Ratio 24.1 RATIO (10-20); Calcium,Total 8.6 mg/dL (8.5-10.1); Chloride 104 mmol/L (98-107); Creatinine, Serum 0.58 mg/dL (0.55-1.02); EST Glomerular Filtration Rate 125 mL/min (>60); Est Glom Filt Rate - Afr Amer 151 mL/min (>60); Estimated Creatinine Clearance 93.82 ml/min; Globulin 4.9 g/dL (2.2-4.2); Glucose 107 mg/dL (74-106); Potassium 3.1 mmol/L (3.5-5.1); Protein, Total 8.1 g/dL (6.4-8.2); Sodium Level 136 mmol/L (136-145)
[2021-02-06 08:52] LABS: Alcohol, Blood (Medical)-Serum < 3.0 mg/dL
--- NOTE | 2021-02-06 09:54 | HP.PCM.HOS_ITS ---
HPI - General General Date of Admission: 02/06/21 Date of Service: 02/06/21 Chief Complaint: opiate withdrawal HPI Narrative SONIA ODONNELL, is a 35 F who presents presents seeking treatment for opiate as well as other polysubstance abuse withdrawal. Patient was in this program back in October and then over the past 2 months has resumed smoking heroin as well as using alprazolam. States that she is around 10 mg of alprazolam a day. He is around a milligram or 2 of heroin per day. Last use about 13 hours prior to arrival. Patient wants to try to get custody of her children which is what her issue was seeking treatment back in October. States that she relapsed when she was fell back in with old friends. Patient last time was here with her who is very resistant to treatment and was combative. She states that she is not he re with him at this time is no longer involved with him. PFSH Medical History Alcohol abuse Anxiety Microcytic anemia Opiate dependence Smoker Substance abuse Tobacco use Home Medications buprenorphine-naloxone 2 tab SUBLINGUAL DAILY 02/06/21 [History Last Taken Unknown] gabapentin 300 mg PO TID 02/06/21 [History Last Taken Unknown] Allergy/AdvReac Type Severity Reaction Status Date / Time Penicillins [PCN] Allergy Anaphylaxis Verified 02/06/21 07:28 Sulfa (Sulfonamide Allergy Anaphylaxis Verified 02/06/21 07:28 Antibiotics) diphenhydramine AdvReac Other Verified 02/06/21 07:28 [From Benadryl] Surgical History H/O: Social History household members: spouse number of children: 5 Smoking Status: Current every day smoker tobacco type: cigarettes alcohol intake: current alcohol intake frequency: other Alcohol type: beer details: ~ 12 beers daily. substance use type: crack/cocaine and heroin ROS ROS Narrative Nausea, vomiting, abdominal cramps. Restless legs. Diaphoresis. General malaise. States that she picks her skin on her scalp as well as her arms all review of systems were negative except as mentioned above in the history of present illness and the other review of systems.. Vital Signs Vital Signs Vital Signs: 02/06/21 07:28 Temperature 36.6 C Temperature Source Oral Pulse Rate 96 Respiratory Rate 16 Blood Pressure 162/119 H Blood Pressure Mean 133 Pulse Ox 100 Oxygen Delivery Method Room Air Weight Weight: 43.9 kg Body Mass Index (BMI) 18.3 Physical Exam Const alert Constitutional Narrative: Appears older than stated age HEENT normocephalic Eyes Eyes Narrative: No scleral icterus Resp normal respiratory effort, no retractions, no use of accessory muscles and clear to auscultation bilaterally Cardio regular rate, regular rhythm, S1 normal heart sound and S2 normal heart sound GI normal to inspection, nondistended, normoactive bowel sounds, soft to palpation, non-tender and non-distended Extremity normal to inspection Skin Skin Narrative: Superficial abrasion on the upper scalp. Areas of picking on her upper extremities. Neuro Sensorium / Orientation: awake and alert Results Lab / Micro Data Result Diagrams: 02/06/21 08:11 02/06/21 08:11 Labs: Laboratory Results - last 24 hr 02/06/21 08:11: WBC 9.6, RBC 4.56, Hgb 11.1 L, Hct 36.0 L, MCV 78.9 L, MCH 24.3 L, MCHC 30.8 L, RDW Std Deviation 46.9 H, RDW Coeff of Swapnil 16.4 H, Plt Count 490 H, MPV 8.7, Immature Gran % (Auto) 0.300, Neut % (Auto) 68.1, Lymph % (Auto) 23.0, [place] % (Auto) 6.2, Eos % (Auto) 2.0, Baso % (Auto) 0.4, Absolute Neuts (auto) 6.6, Absolute Lymphs (auto) 2.21, Nucleated RBC % 0 02/06/21 08:11: Sodium 136, Potassium 3.1 L, Chloride 104, Carbon Dioxide 27.0, Anion Gap 5, BUN 14, Creatinine 0.58, Estim Creat Clear Calc 93.82, Est GFR (MDRD) Af Amer 151, Est GFR (MDRD) Non-Af 125, BUN/Creatinine Ratio 24.1 H, Glucose 107 H, Calcium 8.6, Total Bilirubin 0.40, AST 17, ALT 25, Alkaline Phosphatase 82, Total Protein 8.1, Albumin 3.2, Globulin 4.9 H, Albumin/Globulin Ratio 0.7 L 02/06/21 08:11: Ethyl Alcohol < 3.0 Assessment & Plan Assessment/Plan (1) Opioid withdrawal: (2) Benzodiazepine abuse: PLAN: 1. Acute opiate withdrawal Patient was receiving Suboxone while using heroin. Patient will be on buprenorphine. We will discontinue Suboxone as well as gabapentin that she was receiving at home. Patient will have as needed gabapentin as well as additional agents to help with somatic issues with her w ithdrawal. Patient states that she is going to follow-up at [facility] in [place]. States she is she is going there so that she can be with her family. 2. Benzodiazepine abuse Patient endorses using alprazolam. Will monitor and hold off in any acute treatments at this time for benzodiazepine withdrawal. 3. Hypokalemia: Replace 4. VTE prophylaxis: Not indicated as patient is currently low risk. Charges/Coding Visit Charges Inpatient E&M: 79580 Init Hosp L2
--- NOTE | 2021-02-06 11:06 | PCS.PANDOC ---
PANDEMIC DOCUMENTATION INITIATED: Date: 01/18/2021 Time: 190
[2021-02-06] MEDS: Methocarbamol 750 MG Tablet 1500 MG PO ×2 (12:07→18:28)
[2021-02-06] MEDS: Potassium Chloride Oral Tablet 20 MEQ 40 MEQ PO (12:07)
[2021-02-06] MEDS: Dicyclomine 10 MG Capsule 20 MG PO ×2 (12:07→18:28)
[2021-02-06] MEDS: cloNIDine HCl 0.1 MG Tablet PO ×2 (12:07→21:37)
[2021-02-06] MEDS: Buprenorphine HCl 2 MG TAB.SUBL SL ×2 (12:07→18:28)
[2021-02-06] MEDS: Gabapentin 300 MG Capsule PO (12:07)
[2021-02-06] MEDS: Ibuprofen 600 MG Tablet PO (12:07)
[2021-02-06] MEDS: Ondansetron 8 MG Tablet PO (12:07)
--- NOTE | 2021-02-06 15:50 | CM.ED ---
MARY Note: Referral Source: [facility] program Referral Reason: [facility] SW noted that patient was being admitted to floor for opiate withdrawl. MARY called Chen at [facility] and gave her update. She said that she will be in tomorrow to see patient. Plan: [facility] program Clementine CROWE
[2021-02-06] MEDS: traZODone 100 MG Tablet PO (21:37)
[2021-02-06] MEDS: Nicotine Polacrilex 2 MG GUM PO (21:38)
[2021-02-06 22:09] LABS: Amphetamine Urine VISTA NEGATIVE (<1000 ng/mL); Barbiturate Urine VISTA NEGATIVE (< 200 ng/mL); Benzodiazepine Urine VISTA POSITIVE (< 200 ng/mL); Cocaine Urine VISTA POSITIVE (< 300 ng/mL); Ecstacy Urine VISTA POSITIVE (< 500 ng/mL); Methadone Urine VISTA NEGATIVE (< 300 ng/mL); PCP Urine VISTA NEGATIVE (< 25 ng/mL); THC Urine VISTA NEGATIVE (< 50 ng/mL); Vista UDS pH Range 5
[2021-02-07 03:15] VITALS: BP 124/72; PULSE 92; RESP 16; TEMP 37.1; O2SAT 97
[2021-02-07] MEDS: Buprenorphine HCl 2 MG TAB.SUBL SL ×3 (03:19→18:47)
[2021-02-07 08:18] VITALS: BP 136/80; PULSE 93; RESP 18; TEMP 36.9; O2SAT 98
--- NOTE | 2021-02-07 09:32 | PN.HOSP_ITS ---
Subjective Subjective Feels worse overall. Diaphoretic. Malaise. Would like to take a shower. Objective Data Objective Data Vital Signs: Vital Signs Temp Pulse Resp BP Pulse Ox 36.9 C 93 18 136/80 H 98 02/07/21 08:18 02/07/21 08:18 02/07/21 08:18 02/07/21 08:18 02/07/21 08:18 Oxygen Delivery Method Room Air Weight: 43.9 kg Body Mass Index (BMI) 18.3 Intake & Output: Intake and Output for Last 24 Hours 02/05/21 02/06/21 02/07/21 23:59 23:59 23:59 Intake Total 400 / 400 Balance 400 / 400 Lab / Micro Data Result Diagrams: 02/06/21 08:11 02/06/21 08:11 Labs: Laboratory Results - last 24 hr 02/06/21 21:40: Urine Opiates Screen NEGATIVE, Urine Methadone Screen NEGATIVE, Ur Barbiturates Screen NEGATIVE, Ur Phencyclidine Scrn NEGATIVE, Ur Amphetamines Screen NEGATIVE, U Methamphetamin-MDMA POSITIVE H, U Benzodiazepines Scrn POSITIVE H, Urine Cocaine Screen POSITIVE H, U Cannabinoids Screen NEGATIVE, Ur Drug Screen Comment Physical Exam Const alert Constitutional Narrative: appears older than stated age. Exam Limitations: no limitations Resp normal respiratory effort, no retractions and no use of accessory muscles Cardio regular rate, regular rhythm, S1 normal heart sound and S2 normal heart sound GI normal to inspection, nondistended, normoactive bowel sounds, soft to palpation, non-tender and non-distended Extremity normal to inspection Neuro Sensorium / Orientation: awake and alert Assessment & Plan Assessment/Plan (1) Opioid withdrawal: (2) Benzodiazepine abuse: PLAN: 1. Acute opiate withdrawal Patient was receiving Suboxone while using heroin. Patient will be on buprenorphine. We will discontinue Suboxone as well as gabapentin that she was receiving at home. Patient will have as needed gabapentin as well as additional agents to help with somatic issues with her wit hdrawa. Patient states that she is going to follow-up at [facility] in [place]. States she is she is going there so that she can be with her family. 2. Benzodiazepine abuse Patient endorses using alprazolam. States she uses 10g/day, obtained illicitly Given subjective sensation of feeling worse, will start alprazolam 1mg TID. If does well, the would recommend taper slowly over several weeks (1 mg TID for 1 week, then 1 mg BID for 1 week, then daily for 1 week, then every other day for 3 doses, then stop) 3. Hypokalemia: Replaced 4. VTE prophylaxis: Not indicated as patient is currently low risk. Charges/Coding Visit Charges Inpatient E&M: 07901 Subs Hosp L2
[2021-02-07] MEDS: ALPRAZolam 0.5 MG Tablet 1 MG PO ×3 (09:50→21:48)
[2021-02-07] MEDS: Dicyclomine 10 MG Capsule 20 MG PO (09:50)
[2021-02-07] MEDS: Methocarbamol 750 MG Tablet 1500 MG PO ×2 (09:51→18:07)
[2021-02-07] MEDS: Nicotine Polacrilex 2 MG GUM PO ×2 (09:52→21:49)
[2021-02-07 14:00] VITALS: BP 124/78; PULSE 87; RESP 18; TEMP 36.6; O2SAT 96
[2021-02-07 18:05] VITALS: BP 133/88; PULSE 86; RESP 18; TEMP 37.1; O2SAT 100
[2021-02-07] MEDS: Acetaminophen 500 MG Tablet PO (18:06)
[2021-02-07] MEDS: cloNIDine HCl 0.1 MG Tablet PO (18:06)
[2021-02-07] MEDS: Gabapentin 300 MG Capsule PO (18:06)
[2021-02-07 18:11] VITALS: BP 133/88; PULSE 87; RESP 18; TEMP 37.1; O2SAT 95
[2021-02-07 21:30] VITALS: BP 124/67; PULSE 81; RESP 16; TEMP 36.6; O2SAT 98
[2021-02-07] MEDS: traZODone 100 MG Tablet PO (21:48)
[2021-02-07] MEDS: Ibuprofen 600 MG Tablet PO (21:48)
[2021-02-08] MEDS: Buprenorphine HCl 2 MG TAB.SUBL SL ×3 (03:22→22:40)
[2021-02-08 03:25] VITALS: BP 114/69; PULSE 78; RESP 18; TEMP 36.6; O2SAT 97
[2021-02-08] MEDS: ALPRAZolam 0.5 MG Tablet 1 MG PO ×3 (05:51→21:17)
[2021-02-08 08:55] VITALS: BP 130/68; PULSE 99; RESP 18; TEMP 36.5; O2SAT 100
[2021-02-08] MEDS: Gabapentin 300 MG Capsule PO ×2 (09:04→17:04)
[2021-02-08] MEDS: Ibuprofen 600 MG Tablet PO ×2 (09:04→17:03)
[2021-02-08] MEDS: Methocarbamol 750 MG Tablet 1500 MG PO ×2 (09:04→17:04)
[2021-02-08] MEDS: Nicotine Polacrilex 2 MG GUM PO ×3 (09:04→17:20)
[2021-02-08] MEDS: cloNIDine HCl 0.1 MG Tablet PO ×2 (09:04→17:03)
--- NOTE | 2021-02-08 09:58 | PN.HOSP_ITS ---
Subjective Subjective Patient states she is feeling fairly poorly today. She states overnight she was developing from withdrawal from her benzodiazepine and so her Xanax was restarted. She continues to have some nausea and myalgias. She is asking whether or not we will be able to write for the 5 days of Suboxone that the residential treatment program she is going to be attending at [facility] in [place] requires. I told her I am not able to write for Suboxone long-term but we would discuss this with case management tomorrow and figure out what requirements are prior to discharge. Objective Data Objective Data Vital Signs: Vital Signs Temp Pulse Resp BP Pulse Ox 97.7 F L 99 18 130/68 H 100 02/08/21 08:55 02/08/21 08:55 02/08/21 08:55 02/08/21 08:55 02/08/21 08:55 Oxygen Delivery Method Room Air Weight: 43.9 kg Body Mass Index (BMI) 18.3 Intake & Output: Intake and Output for Last 24 Hours 02/06/21 02/07/21 02/08/21 23:59 23:59 23:59 Intake Total 400 / 400 Balance 400 / 400 Medical Nutrition Assessment Dietitian: Malnutrition Criteria Met Start: 02/07/21 10:03 Freq: Status: Active Protocol: Document 02/07/21 10:03 TORI (Rec: 02/07/21 10:03 TORI [id number]) Nutrition Malnutrition Evidence of Malnutrition Exists Yes Malnutrition (severe): Social/Behavioral/ Environmental Evidenced By Suboptimal Energy Intake ( Severe),Weight Loss (Severe), Physical Changes (Severe) Clinical Problem Chronic Disease or Condition Related Malnutrition Etiology related to drug use and homelessness so unable to consume inadequate nutrition/ protein to meet est nutritional needs Signs/Symptoms as evidenced by <50% of meals and 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 Pt has obvious fat/ muscle loss (temporal/orbital regions, clavicle protruding, arm/muscle loss). Status Active Problem Recommendation Dietitian Recommendations/Changes Will continue liberal Regular diet w/ ONS at meals and snacks tid between meals Lab / Micro Data Result Diagrams: 02/06/21 08:11 02/06/21 08:11 Physical Exam Const alert, oriented x3 and no apparent distress Constitutional Narrative: Thin white female lying in bed, appears mildly anxious but appropriately interactive Exam Limitations: no limitations Resp normal respiratory effort, no retractions, no use of accessory muscles and clear to auscultation bilaterally Auscultation: Negative for crackles, rales, rhonchi or wheezes Cardio regular rate, regular rhythm, S1 normal heart sound, S2 normal heart sound, no murmurs, no rub, no gallops, no clicks and no JVD GI normal to inspection, nondistended, normoactive bowel sounds, soft to palpation, non-tender and non-distended Extremity no clubbing, cyanosis or edema Peripheral Pulses: Yes pulses 2+ throughout Skin Skin Narrative: Signs of picking bilateral upper and lower extremities, wounds in various stages of healing, no signs of infection Neuro oriented x3, moves all extremities and no focal motor deficits Sensorium / Orientation: awake and alert Speech: speech normal Psych Mood & Affect: anxious Assessment & Plan Assessment/Plan (1) Opioid withdrawal: (2) Benzodiazepine abuse: PLAN: Acute opiate withdrawal -Continue buprenorphine taper -Patient has been on Suboxone and evidently this was being prescribed by a samuel grimes in [place] -Patient did admitting to using heroin while she was on Suboxone -Plan is for discharge to [facility] in [facility] so that she will be closer to family -She tells me this morning that she will need a 5-day supply of Suboxone on admission to [facility] -We will discuss further with case management tomorrow with regards to requirements for admission there and discharge as I do feel she will be able to discharge in the next 24 to 48 hours Benzodiazepine abuse -Patient uses street Xanax -She reports 10 g/day use which she obtains illicitly -A Xanax taper was initiated yesterday by the covering hospitalist -The plan is for in a alprazolam taper of 1 mg 3 times daily x1 week then 1 mg twice daily x1 week then daily for 1 week and every other day for 1 week and then discontinue the drug Tobacco abuse -Recommend cessation -Continue NicoDerm patch DVT prophylaxis -Low risk -Early ambulation Charges/Coding Visit Charges Inpatient E&M: 62496 Subs Hosp L2
[2021-02-08 15:00] VITALS: BP 118/75; PULSE 89; RESP 18; TEMP 36.9; O2SAT 100
[2021-02-08] MEDS: Ondansetron 8 MG Tablet PO (17:19)
[2021-02-08] MEDS: Dicyclomine 10 MG Capsule 20 MG PO (17:19)
[2021-02-08 21:10] VITALS: BP 110/62; PULSE 82; RESP 16; TEMP 36.8; O2SAT 99
[2021-02-08] MEDS: traZODone 100 MG Tablet PO (21:20)
[2021-02-09 02:17] VITALS: BP 114/68; PULSE 80; RESP 18; TEMP 36.6; O2SAT 100
[2021-02-09] MEDS: Methocarbamol 750 MG Tablet 1500 MG PO ×3 (02:30→19:29)
[2021-02-09] MEDS: Gabapentin 300 MG Capsule PO ×3 (02:30→19:29)
[2021-02-09] MEDS: Ibuprofen 600 MG Tablet PO ×3 (02:30→19:29)
[2021-02-09] MEDS: ALPRAZolam 0.5 MG Tablet 1 MG PO ×3 (06:00→21:27)
[2021-02-09 06:31] LABS: Absolute Lymphocyte Count 2.58 X10^3/uL (0.83-4.51); Absolute Neutrophil Count 1.9 X10^3/uL (2.0-7.7); Basophil# 0.04 X10^3/uL; Basophil% 0.7 % (0-1); Eosinophil# 0.55 X10^3/uL; Hematocrit 32.8 % (37-47); Hemoglobin 9.9 g/dL (12.0-15.0); Lymphocyte # 2.58 X10^3/ul (0.83-4.51); Lymphocyte % 46.9 % (19-41); Mean Corp Hgb Conc 30.2 g/dL (32-36); Mean Corpuscular Hgb 24.1 pg (27.0-32.0); Mean Platelet Vol. 9.4 fl (6.2-12.0); Monocyte# 0.41 X10^3/uL; Monocyte% 7.5 % (0-10); NRBC Flagged by Analyzer 0 % (0-5); Neutrophil # 1.91 X10^3/uL (2.7-7.7); Neutrophil % 34.7 % (47-70); Platelet Count 393 K/mm3 (150-450); RBC Distribution Width CV 16.2 % (11.6-14.6); RBC Distribution Width SD 47.1 fl (35.1-43.9); White Blood Count 5.5 K/mm3 (4.4-11.0)
[2021-02-09 08:20] VITALS: BP 101/54; PULSE 83; RESP 18; TEMP 36.8; O2SAT 99
--- NOTE | 2021-02-09 09:55 | RAD_ITS ---
STUDY: X-RAY - RIGHT ANKLE REASON FOR EXAM: Female, 35 years old. R ankle pain TECHNIQUE: 3 view(s) of the ankle. COMPARISON: None. FINDINGS: Normal visualized distal tibia and fibula. Normal medial and lateral malleoli. Normal tibiotalar articulation and ankle mortise. Normal visualized talus and calcaneus. Findings suggestive of an old avulsion fracture at the base of the fifth metatarsal. The visualized subtalar, talonavicular, calcaneocuboid and tarsal articulations are normal. Soft tissue swelling. RAD/Ankle min 3 Views IMPRESSION: Soft tissue swelling. Electronically Signed: Yang Johnson MD at 10:09 EDT , Service support ,
[2021-02-09] MEDS: Dicyclomine 10 MG Capsule 20 MG PO ×2 (10:41→19:29)
[2021-02-09] MEDS: cloNIDine HCl 0.1 MG Tablet PO ×2 (10:41→19:28)
[2021-02-09] MEDS: Ondansetron 8 MG Tablet PO ×2 (10:41→19:29)
[2021-02-09 10:45] LABS: Absolute Lymphocyte Count 2.29 X10^3/uL (0.83-4.51); Absolute Neutrophil Count 2.1 X10^3/uL (2.0-7.7); Basophil# 0.04 X10^3/uL; Basophil% 0.7 % (0-1); Eosinophil# 0.58 X10^3/uL; Eosinophils% 10.7 % (0-5); Hematocrit 31.4 % (37-47); Hemoglobin 9.4 g/dL (12.0-15.0); Lymphocyte # 2.29 X10^3/ul (0.83-4.51); Lymphocyte % 42.3 % (19-41); Mean Corp Hgb Conc 29.9 g/dL (32-36); Mean Corpuscular Hgb 23.9 pg (27.0-32.0); Mean Corpuscular Volume 79.9 fL (81-99); Mean Platelet Vol. 9.4 fl (6.2-12.0); Monocyte# 0.44 X10^3/uL; Monocyte% 8.1 % (0-10); NRBC Flagged by Analyzer 0 % (0-5); Neutrophil # 2.06 X10^3/uL (2.7-7.7); Platelet Count 371 K/mm3 (150-450); RBC Distribution Width CV 16.2 % (11.6-14.6); RBC Distribution Width SD 46.8 fl (35.1-43.9); Red Blood Count 3.93 M/mm3 (4.2-5.4); White Blood Count 5.4 K/mm3 (4.4-11.0)
--- NOTE | 2021-02-09 11:30 | CASEMGMT ---
Social Work Note SW updated that pt is bringing her child to residential treatment with her. MARY updated Wojciech with [facility]oj[facility] aware. Nydia Teran STONER OUT, INSULATION EXTRUDER OPERATOR
--- NOTE | 2021-02-09 12:00 | ADDICTION ---
TW met with pt to discuss d/c planning. PT was resistant to tx options and preoccupied with her suboxone rx. TW had ZARIA signed for mother Brooklyn Guajardo and [facility]. TW worked with [facility] to arrange transportation and residential tx for pt. Mother Brooklyn Guajardo will transport client tomorrow morning 02/10/2021 at 9AM to transport directly to residential treatment. PT has f/u suboxone appt tomorrow 02/10/2021 with [facility] with their nursing/medical staff. H/P was faxed to [facility]. [facility] still needs proof of negative COVID test before admittance. ASAM, AUDIT, DUDIT, MSE were completed and faxed over the weekend by treatment navigator Chen.
[2021-02-09] MEDS: Buprenorphine HCl 2 MG TAB.SUBL SL ×2 (13:10→21:28)
--- NOTE | 2021-02-09 14:01 | PN.HOSP_ITS ---
Subjective Subjective Patient was complaining of right ankle pain. She states she had cellulitis in the ankle recently. There is no redness erythema or tissue tenderness. She does limp when she ambulates. She is currently denying any symptoms with regards to withdrawal. She is concerned that her Suboxone has not been restarted and that she has continued her buprenorphine. Objective Data Objective Data Vital Signs: Vital Signs Temp Pulse Resp BP Pulse Ox 98.2 F 83 18 101/54 L 99 02/09/21 08:20 02/09/21 08:20 02/09/21 08:20 02/09/21 08:20 02/09/21 08:20 Oxygen Delivery Method Room Air Weight: 43.9 kg Body Mass Index (BMI) 18.3 Medical Nutrition Assessment Dietitian: Malnutrition Criteria Met Start: 02/07/21 10 :03 Freq: Status: Active Protocol: Document 02/07/21 10:03 TORI (Rec: 02/07/21 10:03 TORI [id number]) Nutrition Malnutrition Evidence of Malnutrition Exists Yes Malnutrition (severe): Social/Behavioral/ Environmental Evidenced By Suboptimal Energy Intake ( Severe),Weight Loss (Severe), Physical Changes (Severe) Clinical Problem Chronic Disease or Condition Related Malnutrition Etiology related to drug use and homelessness so unable to consume inadequate nutrition/ protein to meet est nutritional needs Signs/Symptoms as evidenced by <50% of meals and 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 Pt has obvious fat/ muscle loss (temporal/orbital regions, clavicle protruding, arm/muscle loss). Status Active Problem Recommendation Dietitian Recommendations/Changes Will continue liberal Regular diet w/ ONS at meals and snacks tid between meals Lab / Micro Data Result Diagrams: 02/09/21 10:30 02/06/21 08:11 Labs: Laboratory Results - last 24 hr 02/09/21 06:06: WBC 5.5, RBC 4.10 L, Hgb 9.9 L, Hct 32.8 L, MCV 80.0 L, MCH 24.1 L, MCHC 30.2 L, RDW Std Deviation 47.1 H, RDW Coeff of Swapnil 16.2 H, Plt Count 393, MPV 9.4, Immature Gran % (Auto) 0.200, Neut % (Auto) 34.7 L, Lymph % (Auto) 46.9 H, [place] % (Auto) 7.5, Eos % (Auto) 10.0 H, Baso % (Auto) 0.7, Absolute Neuts (auto) 1.9 L, Absolute Lymphs (auto) 2.58, Nucleated RBC % 0 02/09/21 10:30: WBC 5.4, RBC 3.93 L, Hgb 9.4 L, Hct 31.4 L, MCV 79.9 L, MCH 23.9 L, MCHC 29.9 L, RDW Std Deviation 46.8 H, RDW Coeff of Swapnil 16.2 H, Plt Count 371, MPV 9.4, Immature Gran % (Auto) 0.200, Neut % (Auto) 38.0 L, Lymph % (Auto) 42.3 H, [place] % (Auto) 8.1, Eos % (Auto) 10.7 H, Baso % (Auto) 0.7, Absolute Neuts (auto) 2.1, Absolute Lymphs (auto) 2.29, Nucleated RBC % 0 Micro: Microbiology 02/09/21 11:50 Nasal Secretion SARS-CoV-2 Antigen (Rapid) - Final Radiography Diagnostic Testing: Radiology Impression Ankle X-Ray 02/09/21 09:55 IMPRESSION: Soft tissue swelling. Electronically Signed: Yang Johnson MD at 10:09 EDT , Service support , Physical Exam Const alert, oriented x3 and no apparent distress Constitutional Narrative: Thin, white female lying in bed, appropriately interactive and appreciative Exam Limitations: no limitations HEENT normocephalic and head/scalp atraumatic Head and Scalp: normocephalic Eyes Eyes Narrative: No scleral icterus Resp normal respiratory effort, no retractions, no use of accessory muscles and clear to auscultation bilaterally Auscultation: Negative for crackles, rales, rhonchi or wheezes Cardio regular rate, regular rhythm, S1 normal heart sound, S2 normal heart sound, no murmurs, no rub, no gallops, no clicks and no JVD GI normal to inspection, nondistended, normoactive bowel sounds, soft to palpation, non-tender and non-distended Extremity normal to inspection and no clubbing, cyanosis or edema Extremity Narrative: Tissue tenderness at left ankle laterally with no ecchymosis or edema noted Skin Skin Narrative: Signs of picking bilateral upper and lower extremities, wounds in various stages of healing, no signs of infection Neuro oriented x3, moves all extremities and no focal motor deficits Sensorium / Orientation: awake and alert Speech: speech normal Psych affect normal Assessment & Plan Assessment/Plan (1) Opioid withdrawal: (2) Benzodiazepine abuse: PLAN: Acute opiate withdrawal -Continue buprenorphine taper x24 more hours until patient can be discharged to residential treatment with Suboxone plan -Plan is for discharge tomorrow to [facility] in [facility] with transport by her mother at 9 AM -Covid test is pending for discharge Benzodiazepine abuse -Patient uses street Xanax -She reports 10 g/day use which she obtains illicitly -A Xanax taper was initiated yesterday by the covering hospitalist -The plan is for in a alprazolam taper of 1 mg 3 times daily x1 week then 1 mg twice daily x1 week then daily for 1 week and every other day for 1 week and then discontinue the drug Anemia -Appears microcytic -Repeat hemoglobin was drawn and is stable -Check iron studies and reticulocyte count -If appears iron deficient we will start iron Hepatitis C -Suspect patient is a chronic carrier -Recommend outpatient follow-up once patient is clean for treatment -We will need follow-up with GI for ultrasounds/AFP Right ankle pain -Patient states she has had cellulitis at the ankle previously but no current signs of cellulitis on clinical exam -Ankle x-ray obtained and shows soft tissue swelling with an old avulsion fracture at the base of the fifth metatarsal -This is in the area where she is tender -This back pain may be related to this -Patient states she may have been high and twisted her ankle unknowingly -Nick wrap to be given -No surgical needs as this is an older fracture -If this persists would recommend orthopedic follow-up -Tylenol for pain Tobacco abuse -Recommend cessation -Continue NicoDerm patch DVT prophylaxis -Low risk -Early ambulation Charges/Coding Visit Charges Inpatient E&M: 80752 Subs Hosp L2
[2021-02-09 14:30] VITALS: BP 129/77; PULSE 95; RESP 18; TEMP 36.4; O2SAT 98
[2021-02-09 15:25] LABS: Platelet Count 383 K/mm3 (150-450); RET-HE 25.8 pg (30-35); Reticulocyte Count 0.88 % (0.5-1.5)
[2021-02-09 15:41] LABS: Ferritin 4 ng/mL (8-252); Iron 22 ug/dL (50-170); Iron Binding Capacity,Total 337 ug/dL (250-450); PERCENT IRON SATURATION 6.5 % (15.0-55.0)
[2021-02-09] MEDS: Nicotine Polacrilex 2 MG GUM PO (16:11)
--- NOTE | 2021-02-09 16:25 | CASEMGMT ---
Addendum entered by Nydia Teran 02/09/21 16:39: SW also spoke with pt regarding housing. SW encouraged pt to discuss housing resources while in treatment at [facility] and also informed pt that [facility] housing resources that pt can follow up with as well. Original Note: Social Work Note SW updated that pt doesn't have custody of her children, but reports that she is taking her 1 year old child with her to residential treatment at [facility]. SW in to speak with pt regarding this. SW introduced self and role at [facility]. Pt is alert and orientated, participates appropriately in conversation. Pt states she has five children. Pt states the four oldest children she doesn't have custody of and they stay with pt's grandparents. Pt states her youngest child, Lora, she signed over guardianship to her mother Brooklyn Guajardo. Pt states that all of her children are being cared for currently and have safe environments. Pt states in the past she had open CPS/Job & Family Services cases but denied any current open cases. Pt states she had a CM Heather Lauren through CPS/JFS who recommended that pt sign over guardianship to her mother until pt gets sober so that is what pt did. Pt's mother Brooklyn Guajardo currently has guardianship over pt's one year old baby and has the right to sign guardianship back to pt or keep guardianship. Pt states they don't have to go through the courts to get guardianship signed back to her, pt's mother will just need to sign guardianship back to pt. Pt states that the [facility] that she is going to allows children to stay with them during residential treatment. Pt states that she needs to call her mother to let her mother know time of transportation time and the items that she needs her mom to bring. Pt states that she was told she needs to go straight to [facility] from [facility] so she wants her mom to bring her items to [facility] so she doesn't have to stop at [place] from [facility]. MARY informed pt that part of [facility] contract was for pt to not have her phone, MARY will check with physics technician if this worker can allow pt to use phone to call pt's mother to coordinate discharge plans. MARY spoke with physics technician, allowed this worker to take phone in room and stay with pt in room while pt makes phone call. SW back into pt's room and provided pt with phone. SW stayed in room while pt called her mother to arrange discharge. Pt denied additional needs or concerns at this time. Nydia Teran MENTAL HEALTH COORDINATOR, RESIDENTIAL DOOR UNIT INSTALLER
[2021-02-09 21:14] VITALS: BP 134/84; PULSE 83; RESP 14; TEMP 36.6; O2SAT 98
[2021-02-09] MEDS: traZODone 100 MG Tablet PO (21:27)
[2021-02-10 05:00] VITALS: BP 119/64; PULSE 71; RESP 16; TEMP 36.4; O2SAT 99
[2021-02-10] MEDS: ALPRAZolam 0.5 MG Tablet 1 MG PO (05:07)
[2021-02-10] MEDS: cloNIDine HCl 0.1 MG Tablet PO (05:07)
[2021-02-10] MEDS: Methocarbamol 750 MG Tablet 1500 MG PO (05:07)
[2021-02-10] MEDS: Ibuprofen 600 MG Tablet PO (05:07)
--- NOTE | 2021-02-10 07:20 | PCM.DC.SUM ---
Providers Date of Admission: 02/06/21 Primary Care Physician: No Primary Care Phys Reason For Visit: OPIATE WITHDRAWAL Diagnosis Discharge Diagnosis (1) Opioid withdrawal: Status: Acute Code(s): F11.23 - Opioid dependence with withdrawal (2) Benzodiazepine abuse: Status: Acute Code(s): F13.10 - Sedative, hypnotic or anxiolytic abuse, uncomplicated Medications at Discharge Home Medications gabapentin 300 mg PO TID 02/06/21 ferrous sulfate [FeroSul] 325 mg PO TIDCM #90 tab 02/10/21 Hospital Course Operations None Procedures None Summary of Care Provided Minutes Spent on Discharge: 39 Hospital Course: Lou Hollingsworth is a 35-year-old white female presented to emergency department was commenced on Feb 06, 2021 for opiate withdrawal. On admission the patient admitted to polysubstance abuse. She had been treated back in October but unfortunately relapsed within the last 2 months prior to admission and that she was smoking heroin as well as using street Xanax. She reported she was using about 2 g of heroin daily and roughly 10 mg of Xanax daily. Her last use prior to admission was 13 h. She has lost custody of her children and would like to try to get that back but she has to be clean to do so. She was admitted and placed on a buprenorphine taper with tapering doses of Xanax. We do recommend continue with tapering Xanax doses she is currently on 1 mg 3 times daily and would recommend a week of that and then decrease to 1 mg twice daily, then 1 mg daily then 1 mg every other day and then discontinue. I would utilize a week at each dose. While she was admitted she complained of some right ankle pain and states she has a history of cellulitis in that ankle. She had no cellulitic-looking appearance but an x-ray was done and showed an old 5th metatarsal avulsion fracture and some soft tissue swelling but no other findings were present. Given the age of this fracture I would recommend follow-up as an outpatient with orthopedics of the continued issue. She also was noted to be anemic which evidently per her history is chronic. Iron studies were obtained and she appears to have iron deficiency. She was placed on oral iron three times daily and a prescription was sent to the pharmacy for this. She is discharged on Feb 10, 2021 in stable condition with her mother who will take her to [facility] for continued inpatient opiate rehabilitation. Discharge diagnoses: Acute opiate withdrawal-resolved Benzodiazepine abuse Iron deficiency anemia Chronic hepatitis C Right 5th metatarsal avulsion fracture-indeterminate age Tobacco abuse Medical Records Data Medical Nutrition Assessment Dietitian: Malnutrition Criteria Met Start: 02/07/21 10:03 Freq: Status: Active Protocol: Document 02/09/21 14:43 RMA (Rec: 02/09/21 14:43 RMA [id number]) Nutrition Malnutrition Evidence of Malnutrition Exists Yes Malnutrition (severe): Social/Behavioral/ Environmental Evidenced By Suboptimal Energy Intake ( Severe),Weight Loss (Severe), Physical Changes (Severe) Clinical Problem Chronic Disease or Condition Related Malnutrition Etiology Severe protein-calorie malnutrition in the context of social circumstance related to drug use and homelessness so unable to consume inadequate nutrition/protein to meet est nutritional needs Signs/Symptoms as evidenced by <50% of meals, intake meeting less than 50% estimated nutrition needs and 30.9% wt loss x 4 months [employer]. Pt has obvious fat/muscle loss (temporal/orbital regions , clavicle protruding, arm/ muscle loss). Status Active Problem Recommendation Dietitian Recommendations/Changes Will continue liberal Regular diet, CIB TID with meals and snacks tid between meals as ordered. Weight / BMI Weight Weight: 43.9 kg Body Mass Index (BMI) 18.3 ABG / Lab / Microbiology Data Result Diagrams: 02/09/21 10:30 02/06/21 08:11 Laboratory: Laboratory Results - last 24 hr 02/09/21 10:30: WBC 5.4, RBC 3.93 L, Hgb 9.4 L, Hct 31.4 L, MCV 79.9 L, MCH 23.9 L, MCHC 29.9 L, RDW Std Deviation 46.8 H, RDW Coeff of Swapnil 16.2 H, Plt Count 371, MPV 9.4, Immature Gran % (Auto) 0.200, Neut % (Auto) 38.0 L, Lymph % (Auto) 42.3 H, [place] % (Auto) 8.1, Eos % (Auto) 10.7 H, Baso % (Auto) 0.7, Absolute Neuts (auto) 2.1, Absolute Lymphs (auto) 2.29, Nucleated RBC % 0 02/09/21 15:00: Retic Count 0.88, Immature Retic Fraction 12.00, Retic Hgb Equivalent 25.8 L 02/09/21 15:00: Iron 22 L, TIBC 337, Iron Saturation 6.5 L, Ferritin 4 L Microbiology: Microbiology 02/09/21 11:50 Nasal Secretion SARS-CoV-2 Antigen (Rapid) - Final Radiography Diagnostic Testing: Radiology Impression Ankle X-Ray 02/09/21 09:55 IMPRESSION: Soft tissue swelling. Electronically Signed: Yang Johnson MD at 10:09 EDT , Service support , D/C Instructions Discharge Diet: No restrictions Discharge Activity: Return to Normal Activity Meaningful Use Info Meaningful Use Diagnoses (Choose all that apply): None applicable Discharge Plan Admission Admit Date/Time: 02/06/21 09:53 Primary Reason for Your Visit: Opiate withdrawal and detox Attending Provider: Lubna Acuña Primary Care Provider: Care Physician,No Primary Instructions Additional Instructions / Restrictions: 1. Please take iron as prescribed 2. Would recommend follow-up with orthopedic surgery if your right foot continues to be problematic Discharge Orders/Prescriptions Prescriptions: New ferrous sulfate [FeroSul] 325 mg (65 mg iron) Tablet 325 mg PO TIDCM Qty: 90 RF: 0 Continued gabapentin 300 mg capsule 300 mg PO TID RF: 0 Discontinued buprenorphine-naloxone 8-2 mg tablet, sublingual 2 tab SUBLINGUAL DAILY RF: 0 Referrals / Follow Up: Care Physician,No Primary [Primary Care Provider] - NOT,DEFINED [NON-STAFF] - Disposition Disposition (needs filled in before D/C Order can be placed): Inpatient Rehab Unit/Facility Charges/Coding Visit Charges Inpatient E&M: 27643 Disch Hosp
--- NOTE | 2021-02-10 07:30 | PCM.DC ---
Discharge Instructions Diet Discharge Diet: No restrictions Follow Up Care Test Results: Test results from this visit will be discussed in further detail at your follow-up appointment, if applicable. Discharge Plan Admission Admit Date/Time: 02/06/21 09:53 Primary Reason for Your Visit: Opiate withdrawal and detox Attending Provider: Lubna Acuña Primary Care Provider: Care Physician,No Primary Instructions Additional Instructions / Restrictions: 1. Please take iron as prescribed 2. Would recommend follow-up with orthopedic surgery if your right foot continues to be problematic Discharge Orders/Prescriptions Prescriptions: New ferrous sulfate [FeroSul] 325 mg (65 mg iron) Tablet 325 mg PO TIDCM Qty: 90 RF: 0 Continued gabapentin 300 mg capsule 300 mg PO TID RF: 0 Discontinued buprenorphine-naloxone 8-2 mg tablet, sublingual 2 tab SUBLINGUAL DAILY RF: 0 Referrals / Follow Up: Care Physician,No Primary [Primary Care Provider] - NOT,DEFINED [NON-STAFF] - Disposition Disposition (needs filled in before D/C Order can be placed): Inpatient Rehab Unit/Facility
== END 2021-02-10 08:10 ==
LOC: ED 08:21 → MS3 09:58
PROVIDERS: Family Medicine; Emergency Provider Emergency Medicine; Visit Provider Internal Medicine
DX: F11.23 Opioid dependence with withdrawal (principal); F13.10 Sedative, hypnotic or anxiolytic abuse, uncomplicated; F17.210 Nicotine dependence, cigarettes, uncomplicated; F10.10 Alcohol abuse, uncomplicated; E87.6 Hypokalemia; F41.9 Anxiety disorder, unspecified; E43 Unspecified severe protein-calorie malnutrition; Z68.1 Body mass index [BMI] 19.9 or less, adult; M25.571 Pain in right ankle and joints of right foot; D50.9 Iron deficiency anemia, unspecified; B18.2 Chronic viral hepatitis C; Z59.0 Homelessness; Z79.899 Other long term (current) drug therapy
CPT/HCPCS: 36415; 73610; 80053; 80307; 82077; 82728; 83540; 83550; 85025; 85045; 87426; 93005; 97802; 99218; 99283; 99406; H0012; G0378

== ENCOUNTER 2021-06-30 15:49 | Inpatient (IN) | payer MEDICAID, SELFPAY ==
[2021-06-30 15:49] VITALS: BP 125/81; PULSE 83; RESP 16; TEMP 36.1; O2SAT 96; BMI 19.3
--- NOTE | 2021-06-30 16:00 | EDS_ITS ---
HPI History of Present Illness Chief Complaint: Substance Abuse Detail of Chief Complaint: Withdrawal and detox from benzodiazepine and heroin Informant: patient Onset/Context/Timing Onset: Hours Context: Sudden Onset Timing: Continuous Quality: Tremor, jitteriness and sense of uneasiness Location: Generalized Current Severity: Mild Maximum Severity: Moderate Worsened by: Abstaining from benzodiazepine and heroin Relieved by: Nothing Associated Symptoms Associated Symptoms: Withdrawal-like symptoms Narrative Narrative: Patient is a 36-year-old woman who admits to smoking 1 g of heroin a day and taking 5-6 2 mg Xanax tablets a day. She states there bar . She was in a detox program 6 to 7 months ago. She states she relapsed 55 days ago. She has been using heroin and benzodiazepines for 4 years. She denies history of hepatitis or HIV. She is status post tubal ligation. She states her menses are irregular because of her drug use. She denies fever or chills. She denies night sweats. She had a significant weight loss over the past several months. She presumes is due to her drug use. She denies headache, visual, ocular auditory symptoms. No trouble speech or swallowing. She denies cardiac respiratory symptoms other than palpitations. She does report nausea without vomiting or diarrhea. She wearing gloves/mittens and long sleeves because she picks at herself. Prior similar symptoms: Yes Recent Illness/Hospitalization: No (6 months ago) PFSH PFS Medical History Anxiety Benzodiazepine abuse Microcytic anemia Opiate dependence Smoker Substance abuse Tobacco use Home Medications gabapentin 300 mg PO TID 02/06/21 [History Last Taken Unknown] ferrous sulfate [FeroSul] 325 mg PO TIDCM #90 tab 02/10/21 [Rx Last Taken Unknown] Allergy/AdvReac Type Severity Reaction Status Date / Time Penicillins [PCN] Allergy Anaphylaxis Verified 06/30/21 15:52 Sulfa (Sulfonamide Allergy Anaphylaxis Verified 06/30/21 15:52 Antibiotics) diphenhydramine AdvReac Other Verified 06/30/21 15:52 [From Benadryl] Surgical History H/O: History of bilateral tubal ligation Social History (Updated 06/30/21 @ 16:[address] Stevo Interiano MD) household members: spouse number of children: 5 Smoking Status: Current every day smoker tobacco type: cigarettes alcohol intake: former details: ~ 12 beers daily. substance use type: crack/cocaine, heroin and other details: 5-6 2 mg Xanax tablets daily ROS ROS ED Constitutional Constitutional ED: Reports weight loss; Denies chills, fever(s), subjective or sweats Eyes Eyes: Denies blurry vision, change in vision or diplopia ENT ENT ED: Denies ear pain, rhinorrhea or sore throat Cardiovascular Cardiovascular: Reports palpitations; Denies chest pain, orthopnea or racing heartbeat Respiratory/Chest Respiratory/Chest: Denies cough, dyspnea, dyspnea on exertion or orthopnea Gastrointestinal Gastrointestinal: Reports abdominal pain and nausea; Denies constipation, diarrhea, melena or vomiting Genitourinary Genitourinary ED: Denies dysuria, hematuria or urinary frequency Musculoskeletal Musculoskeletal: Denies arthralgias, myalgias or neck pain Integumentary Reports rash Neurologic Neurologic: Denies headache(s), paresthesias or weakness Psychiatric Psychiatric: Denies suicidal ideation or suicidal thoughts EXAM Physical Exam Const Vital Signs: 06/30/21 15:49 Temperature 97 F L Temperature Source Temporal Pulse Rate 83 Respiratory Rate 16 Blood Pressure 125/81 H Blood Pressure Mean 95 Pulse Ox 96 Oxygen Delivery Method Room Air Positive well developed, cachectic and unkempt General Appearance ED: unkempt, well developed, cachectic and other Patient isaias ears restless and fidgety. There is blood noted on her ; Negative for cyanotic, diaphoretic, NAD or pallor Nutritional Appearance: cachectic HEENT Reports TM's clear and moist mucous membranes HEENT Narrative: Ears normal. Nares patent. Posterior pharynx not erythema or exudate. tenderness Tympanic Membrane ED: Yes TM's clear Eyes PERRL and EOMs intact bilaterally General Eye ED: Negative for pale conjunctiva or scleral icterus Neck no lymphadenopathy, supple and no JVD General: tenderness Chest Wall inspection of chest normal and palpation of chest normal Resp normal respiratory effort and clear to auscultation bilaterally Effort and Inspection: Negative for pain with movement Cardio regular rate, regular rhythm, S1 normal heart sound, S2 normal heart sound and no murmurs GI normal to inspection, nondistended, normoactive bowel sounds, non-tender and non-distended Palpation: soft Back/Spine no CVA tenderness Cervical Spine: Negative for cervical spine tenderness Thoracic Spine / Upper Back: Negative for thoracic spinal tenderness or paraspinal muscle tenderness Lumbar Spine / Lower Back: Negative for lumbar spinal tenderness Extremity Negative for normal to inspection Extremity Narrative: Veterinary Anatomist syndrome General Extremety ED: Negative for edema or tenderness General Extremity: Negative for edema Neuro oriented x3, CN's II-XII intact bilaterally and no sensory deficits noted Neuro Narrative: Reflexes are 2+ upper and lower extremity with 2 beats of clonus. Negative Babinski sign. Sensorium / Orientation: alert Motor Exam: strength 5/5 throughout Psych Psych Narrative: Affect is flat Appearance: unkempt Mood & Affect: anxious Skin No no wounds General Skin Exam: Negative for jaundice or pallor MDM MDM MDM Narrative Medical decision making narrative: Patient has symptoms consistent with withdrawal. Will treat with p.o. meds and obtain blood work. Patient will requ nitish inpatient detox. Lab Data Attestation: I reviewed the patient's lab results. Lab results narrative: CBC is unremarkable. Comprehensive metabolic panel is remarkable an elevated BUN to creatinine ratio and slight elevation of glucose of 115. Labs: Laboratory Results - last 24 hr 06/30/21 06/30/21 06/30/21 16:20 16:30 16:30 WBC 6.8 RBC 4.50 Hgb 12.7 Hct 39.1 MCV 86.9 MCH 28.2 MCHC 32.5 RDW Std Deviation 43.8 RDW Coeff of Swapnil 13.8 Plt Count 303 MPV 9.1 Immature Gran % (Auto) 0.300 Neut % (Auto) 59.7 Lymph % (Auto) 34.3 [place] % (Auto) 4.5 Eos % (Auto) 0.6 Baso % (Auto) 0.6 Absolute Neuts (auto) 4.1 Absolute Lymphs (auto) 2.34 Nucleated RBC % 0 Sodium 138 Potassium 4.0 Chloride 103 Carbon Dioxide 27.0 Anion Gap 8 BUN 18 Creatinine 0.59 Estim Creat Clear Calc 96.35 Est GFR (MDRD) Af Amer 149 Est GFR (MDRD) Non-Af 123 BUN/Creatinine Ratio 30.7 H Glucose 115 H Calcium 8.7 Total Bilirubin 0.20 AST 15 ALT 31 Alkaline Phosphatase 85 Total Protein 7.9 Albumin 3.4 Globulin 4.5 H Albumin/Globulin Ratio 0.8 L Ur Drug Screen Comment Ethyl Alcohol 06/30/21 16:30 WBC RBC Hgb Hct MCV MCH MCHC RDW Std Deviation RDW Coeff of Swapnil Plt Count MPV Immature Gran % (Auto) Neut % (Auto) Lymph % (Auto) [place] % (Auto) Eos % (Auto) Baso % (Auto) Absolute Neuts (auto) Absolute Lymphs (auto) Nucleated RBC % Sodium Potassium Chloride Carbon Dioxide Anion Gap BUN Creatinine Estim Creat Clear Calc Est GFR (MDRD) Af Amer Est GFR (MDRD) Non-Af BUN/Creatinine Ratio Glucose Calcium Total Bilirubin AST ALT Alkaline Phosphatase Total Protein Albumin Globulin Albumin/Globulin Ratio Ur Drug Screen Comment Ethyl Alcohol 8.0 Discharge Plan Dx/Rx/DC Orders Clinical Impression: Benzodiazepine withdrawal, Heroin withdrawal Disposition Disposition: Acute Care Hospital [facility]
[2021-06-30] MEDS: Phenobarbital 32.4 MG Tablet 97.2 MG PO (16:32)
[2021-06-30] MEDS: Ondansetron ODT 4 MG Tablet PO (16:32)
[2021-06-30] MEDS: Dicyclomine 10 MG Capsule 20 MG PO (16:32)
[2021-06-30 16:46] LABS: Absolute Lymphocyte Count 2.34 X10^3/uL (0.83-4.51); Absolute Neutrophil Count 4.1 X10^3/uL (2.0-7.7); Basophil# 0.04 X10^3/uL; Basophil% 0.6 % (0-1); Eosinophil# 0.04 X10^3/uL; Eosinophils% 0.6 % (0-5); Hematocrit 39.1 % (37-47); Hemoglobin 12.7 g/dL (12.0-15.0); Lymphocyte # 2.34 X10^3/ul (0.83-4.51); Lymphocyte % 34.3 % (19-41); Mean Corp Hgb Conc 32.5 g/dL (32-36); Mean Corpuscular Hgb 28.2 pg (27.0-32.0); Mean Corpuscular Volume 86.9 fL (81-99); Mean Platelet Vol. 9.1 fl (6.2-12.0); Monocyte# 0.31 X10^3/uL; Monocyte% 4.5 % (0-10); NRBC Flagged by Analyzer 0 % (0-5); Neutrophil # 4.07 X10^3/uL (2.7-7.7); Neutrophil % 59.7 % (47-70); Platelet Count 303 K/mm3 (150-450); RBC Distribution Width CV 13.8 % (11.6-14.6); RBC Distribution Width SD 43.8 fl (35.1-43.9); White Blood Count 6.8 K/mm3 (4.4-11.0)
[2021-06-30 17:00] LABS: ALB/GLOB Ratio 0.8 RATIO (0.9-2.4); AST(SGOT) 15 U/L (15-37); Alanine Aminotransfer ALT/SGPT 31 U/L (13-56); Albumin, Serum 3.4 g/dL (3.2-5.0); Alkaline Phosphatase 85 U/L (45-117); BUN 18 mg/dL (7-18); BUN/Creat Ratio 30.7 RATIO (10-20); Calcium,Total 8.7 mg/dL (8.5-10.1); Chloride 103 mmol/L (98-107); Creatinine, Serum 0.59 mg/dL (0.55-1.02); EST Glomerular Filtration Rate 123 mL/min (>60); Est Glom Filt Rate - Afr Amer 149 mL/min (>60); Estimated Creatinine Clearance 96.35 ml/min; Globulin 4.5 g/dL (2.2-4.2); Glucose 115 mg/dL (74-106); Protein, Total 7.9 g/dL (6.4-8.2); Sodium Level 138 mmol/L (136-145)
[2021-06-30 17:01] LABS: Anion Gap 8 (5-15)
[2021-06-30 17:21] LABS: Amphetamine Urine VISTA NEGATIVE (<1000 ng/mL); Barbiturate Urine VISTA POSITIVE (< 200 ng/mL); Benzodiazepine Urine VISTA NEGATIVE (< 200 ng/mL); Cocaine Urine VISTA POSITIVE (< 300 ng/mL); Ecstacy Urine VISTA NEGATIVE (< 500 ng/mL); Methadone Urine VISTA NEGATIVE (< 300 ng/mL); PCP Urine VISTA NEGATIVE (< 25 ng/mL); THC Urine VISTA NEGATIVE (< 50 ng/mL); Vista UDS pH Range 5
--- NOTE | 2021-06-30 17:21 | NURSING ---
MED SURG RUBÉN WITHDRAWAL BENZODIAZEPINE AND HEROIN
--- NOTE | 2021-06-30 17:38 | CM.ED ---
Social Work Telephone call to treatment navigator, updated on patient admission to [facility]. Sharon Reeves MSW, EFRAIN
[2021-06-30 18:00] VITALS: BP 116/67; PULSE 75; RESP 16; TEMP 36.8; O2SAT 100
[2021-06-30 18:10] VITALS: BMI 19.4
[2021-06-30] MEDS: Phenobarbital 32.4 MG Tablet 64.8 MG PO ×2 (18:31→22:25)
--- NOTE | 2021-06-30 18:59 | PCS.PANDOC ---
PANDEMIC DOCUMENTATION INITIATED: Date: 01/18/2021 Time: 190
--- NOTE | 2021-06-30 19:19 | HP.PCM.HOS_ITS ---
HPI - General General Date of Admission: 06/30/21 Date of Service: 06/30/21 Chief Complaint: Opiate/benzodiazepine withdrawal HPI Narrative SONIA ODONNELL, is a 36 F who presented to the emergency department [facility] on 06/30/2021 requesting detox from opiates and benzodiazepines. The patient is on history of polysubstance abuse and currently admits to using fentanyl, which she snorts, crack, and street Xanax. She uses approximately 1 g of fentanyl a day and approximately 10 to 12 mg of Xanax daily. Her last detox at this facility was in February 2021 at which time she was discharged to an inpatient facility. She said she had extended time of sobriety but had a relapse approximately 5 weeks ago. Her last use was yesterday morning. She complains of some nausea without vomiting and diarrhea. She has some body aches and mild tremor and states that her oral intake has been poor. She states that she has been taking a lot recently and has been wearing gloves/mittens and long sleeves because of this. She denies any sores that appear to be infected at this time. The emergency department her vital signs were unremarkable. A CBC was performed and was completely normal. CMP was performed and was overall unremarkable. Her tox screen was positive for opiates, barbiturates, and cocaine. She did have an alcohol level of 8. Request for admission was made and the patient indicates she does have plans for discharge to a facility in [place] once her detox has been completed. [facility] Medical History Anxiety Benzodiazepine abuse Microcytic anemia Opiate dependence Smoker Substance abuse Tobacco use Home Medications gabapentin 300 mg PO TID 02/06/21 [History Last Taken 06/30/21] buprenorphine HCl 16 mg SUBLINGUAL BID 06/30/21 [History Last Taken 06/28/21] clonidine HCl 0.1 mg PO TID 06/30/21 [History Last Taken Unknown] Allergy/AdvReac Type Severity Reaction Status Date / Time Penicillins [PCN] Allergy Anaphylaxis Verified 06/30/21 15:52 Sulfa (Sulfonamide Allergy Anaphylaxis Verified 06/30/21 15:52 Antibiotics) diphenhydramine AdvReac Other Verified 06/30/21 15:52 [From Benadryl] no significant family history Surgical History H/O: History of bilateral tubal ligation Social History household members: spouse number of children: 5 Smoking Status: Current every day smoker tobacco type: cigarettes alcohol intake: former details: ~ 12 beers daily. substance use type: crack/cocaine, heroin and other details: 5-6 2 mg Xanax tablets daily ROS Constitutional Constitutional: Reports fatigue, malaise and weakness; Denies anorexia, change in weight, chills, fever(s), night sweats or other Eyes Eyes: Denies blurry vision, change in eye color, change in vision, discharge from eye(s), double vision, erythema, eye pain, loss of vision or other ENT HEENT: Denies abnormal hearing, dysphagia, ear pain, epistaxis, headache(s), hearing loss, nasal congestion, nasal discharge, post nasal drip, sinus pressure, sore throat or other Cardiovascular Cardiovascular: Denies chest pain, claudication, dyspnea on exertion, edema, lightheadedness, orthopnea, palpitations, paroxysmal nocturnal dyspnea, rapid heart rate, syncope or other Respiratory/Chest Respiratory/Chest: Denies cough, dyspnea, excessive phlegm production, hemoptysis, productive cough, shortness of breath at rest, shortness of breath with exertion, wheezing or other Gastrointestinal Gastrointestinal: Reports diarrhea and nausea; Denies abdominal pain, coffee ground emesis, constipation, dyspepsia, hematemesis, hematochezia, loose stools, melena, vomiting or other Genitourinary Genitourinary: Denies burning urination, difficulty urinating, dysuria, hematuria, nocturia, urinary frequency, urinary hesitancy, urinary incontinence, urinary urgency or other Musculoskeletal Musculoskeletal: Reports arthralgias and myalgias; Denies back pain, joint pain, joint stiffness, joint swelling, neck pain or other Neurologic Neurologic: Reports tremor(s); Denies abnormal gait, abnormal speech, confusion, disequilibrium, dizziness, focal weakness, headache(s), numbness, paresthesias, seizure-like activity, seizures, syncope, tingling or other Psychiatric Psychiatric: Reports anxiety and depression; Denies homicidal ideation, suicidal ideation or other Endocrine Endocrinology: Reports excessive sweating; Denies change in body appearance, cold intolerance, heat intolerance, polydipsia, polyuria or other Hematologic/Lymphatic Hematologic/Lymphatic: Denies anemia, easy bleeding, easy bruising, lymphadenopathy or other Allergic/Immunologic Allergic/Immunologic: Denies rhinitis, hives, eczemia, asthma or other Vital Signs Vital Signs Vital Signs: 06/30/21 15:49 06/30/21 18:00 Temperature 97 F L 98.3 F Temperature Source Temporal Oral Pulse Rate 83 75 Respiratory Rate 16 16 Blood Pressure 125/81 H 116/67 Blood Pressure Mean 95 83 Blood Pressure Source Monitor Blood Pressure Position Semi-Fowlers Blood Pressure Location Left Arm Pulse Ox 96 100 Oxygen Delivery Method Room Air Room Air Weight Weight: 46.72 kg Body Mass Index (BMI) 19.4 Physical Exam Const alert, oriented x3 and no apparent distress Constitutional Narrative: Thin middle-aged white female, appears older than stated age, nontoxic, no acute distress General Appearance: cooperative HEENT normocephalic, hearing grossly normal bilaterally and moist oral mucous membranes HEENT Narrative: Multiple superficial wounds on face from picking, dentition is fair, Mallampati is 2, no thrush Resp normal respiratory effort, no retractions, no use of accessory muscles and clear to auscultation bilaterally Auscultation: Negative for crackles, rales, rhonchi or wheezes Cardio regular rate, regular rhythm, S1 normal heart sound, S2 normal heart sound, no murmurs, no rub, no gallops, no clicks and no JVD GI normal to inspection, nondistended, normoactive bowel sounds, soft to palpation, non-tender and non-distended; Negative for hepatosplenomegaly Extremity no clubbing, cyanosis or edema Peripheral Pulses: Yes pulses 2+ throughout Skin skin turgor normal, no jaundice, no petechiae and no mottling Skin Narrative: Multiple wounds on arms legs and face from picking Neuro oriented x3, CN's II-XII intact bilaterally, moves all extremities and no focal motor deficits Sensorium / Orientation: awake and alert Speech: speech normal Motor Exam: strength 5/5 throughout Psych Psych Narrative: Eye contact is good, affect is flat Results Lab / Micro Data Attestation: I reviewed the patient's lab results. Result Diagrams: 06/30/21 16:30 06/30/21 16:30 Labs: Laboratory Results - last 24 hr 06/30/21 16:20: Urine Opiates Screen POSITIVE H, Urine Methadone Screen NEGATIVE, Ur Barbiturates Screen POSITIVE H, Ur Phencyclidine Scrn NEGATIVE, Ur Amphetamines Screen NEGATIVE, U Methamphetamin-MDMA NEGATIVE, U Benzodiazepines Scrn NEGATIVE, Urine Cocaine Screen POSITIVE H, U Cannabinoids Screen NEGATIVE, Ur Drug Screen Comment 06/30/21 16:30: WBC 6.8, RBC 4.50, Hgb 12.7, Hct 39.1, MCV 86.9, MCH 28.2, MCHC 32.5, RDW Std Deviation 43.8, RDW Coeff of Swapnil 13.8, Plt Count 303, MPV 9.1, Immature Gran % (Auto) 0.300, Neut % (Auto) 59.7, Lymph % (Auto) 34.3, [place] % (Auto) 4.5, Eos % (Auto) 0.6, Baso % (Auto) 0.6, Absolute Neuts (auto) 4.1, Absolute Lymphs (auto) 2.34, Nucleated RBC % 0 06/30/21 16:30: Sodium 138, Potassium 4.0, Chloride 103, Carbon Dioxide 27.0, Anion Gap 8, BUN 18, Creatinine 0.59, Estim Creat Clear Calc 96.35, Est GFR (MDRD) Af Amer 149, Est GFR (MDRD) Non-Af 123, BUN/Creatinine Ratio 30.7 H, Glucose 115 H, Calcium 8.7, Total Bilirubin 0.20, AST 15, ALT 31, Alkaline Phosphatase 85, Total Protein 7.9, Albumin 3.4, Globulin 4.5 H, Albumin/Globulin Ratio 0.8 L 06/30/21 16:30: Ethyl Alcohol 8.0 Assessment & Plan Assessment/Plan (1) Benzodiazepine withdrawal: (2) Heroin withdrawal: PLAN: Acute opiate withdrawal -Patient's last use was yesterday morning at approximately 9 AM--> smokes fentanyl -Start buprenorphine taper -Supportive medications -180 consultation -Tox screen on admission is positive for cocaine, barbiturates, opiates -Patient's plan is for discharge to a facility in [place] once stabilized Benzodiazepine withdrawal -Patient uses street Xanax -She reports 10-12 g/day use which she obtains illicitly -We will utilize phenobarbital taper -Port of medications -ID consultation Polysubstance abuse -She admits that she uses illicit benzodiazepines, smokes fentanyl, smokes crack -Treatment as above History of iron deficiency anemia -Currently resolved -Continue oral iron Hepatitis C -Suspect patient is a chronic carrier -Recommend outpatient follow-up once patient is clean for treatment -We will need follow-up with GI for ultrasounds/AFP Multiple open wounds -These are all a result of picking -Topical Bactroban -No current signs of infection Tobacco abuse -Recommend cessation -Nicotine gum ordered DVT prophylaxis -Low risk -Early ambulation Charges/Coding Visit Charges Inpatient E&M: 13455 Init Hosp L2
[2021-06-30] MEDS: Buprenorphine HCl 2 MG TAB.SUBL SL (20:17)
[2021-06-30 21:00] VITALS: BP 113/73; PULSE 66; RESP 16; TEMP 36.7; O2SAT 99
[2021-06-30] MEDS: traZODone 100 MG Tablet PO (22:25)
[2021-06-30] MEDS: Mupirocin Ointment 22gm Tube 1 APPLIC TOPICAL (22:26)
[2021-07-01 02:10] VITALS: BP 99/56; PULSE 62; RESP 16; TEMP 36.4; O2SAT 95
[2021-07-01] MEDS: Phenobarbital 32.4 MG Tablet 64.8 MG PO ×6 (02:21→21:31)
[2021-07-01] MEDS: Buprenorphine HCl 2 MG TAB.SUBL SL ×3 (04:30→20:45)
[2021-07-01 04:50] VITALS: BP 102/61; PULSE 62; RESP 16; TEMP 36.9; O2SAT 99
[2021-07-01] MEDS: Folic Acid 1 MG Tablet PO (08:42)
[2021-07-01] MEDS: Ferrous Sulfate 325 MG Tablet PO ×3 (08:42→18:38)
[2021-07-01] MEDS: Thiamine Hydrochloride 100 MG Tablet PO (08:42)
[2021-07-01 08:49] VITALS: BP 123/82; PULSE 88; RESP 18; TEMP 37; O2SAT 98
[2021-07-01] MEDS: Dicyclomine 10 MG Capsule 20 MG PO (10:10)
[2021-07-01] MEDS: Mupirocin Ointment 22gm Tube 1 APPLIC TOPICAL ×2 (11:50→21:31)
[2021-07-01 14:00] VITALS: BP 128/80; PULSE 86; RESP 16; TEMP 36.7; O2SAT 99
--- NOTE | 2021-07-01 14:22 | PCM.PN.HOSP ---
Subjective Subjective Follow-up for acute opioid and benzodiazepine withdrawal syndrome Objective Data Objective Data Vital Signs: Vital Signs Temp Pulse Resp BP Pulse Ox 98.6 F 88 18 123/82 H 98 07/01/21 08:49 07/01/21 08:49 07/01/21 08:49 07/01/21 08:49 07/01/21 08:49 Oxygen Delivery Method Room Air Weight: 103 lb Body Mass Index (BMI) 19.4 Intake & Output: Intake and Output for Last 24 Hours 06/29/21 06/30/21 07/01/21 23:59 23:59 23:59 Intake Total 890 / 890 Balance 890 / 890 Lab / Micro Data Result Diagrams: 06/30/21 16:30 06/30/21 16:30 Labs: Laboratory Results - last 24 hr 06/30/21 16:20: Urine Opiates Screen POSITIVE H, Urine Methadone Screen NEGATIVE, Ur Barbiturates Screen POSITIVE H, Ur Phencyclidine Scrn NEGATIVE, Ur Amphetamines Screen NEGATIVE, U Methamphetamin-MDMA NEGATIVE, U Benzodiazepines Scrn NEGATIVE, Urine Cocaine Screen POSITIVE H, U Cannabinoids Screen NEGATIVE, Ur Drug Screen Comment 06/30/21 16:30: WBC 6.8, RBC 4.50, Hgb 12.7, Hct 39.1, MCV 86.9, MCH 28.2, MCHC 32.5, RDW Std Deviation 43.8, RDW Coeff of Swapnil 13.8, Plt Count 303, MPV 9.1, Immature Gran % (Auto) 0.300, Neut % (Auto) 59.7, Lymph % (Auto) 34.3, Bleck[place] % (Auto) 4.5, Eos % (Auto) 0.6, Baso % (Auto) 0.6, Absolute Neuts (auto) 4.1, Absolute Lymphs (auto) 2.34, Nucleated RBC % 0 06/30/21 16:30: Sodium 138, Potassium 4.0, Chloride 103, Carbon Dioxide 27.0, Anion Gap 8, BUN 18, Creatinine 0.59, Estim Creat Clear Calc 96.35, Est GFR (MDRD) Af Amer 149, Est GFR (MDRD) Non-Af 123, BUN/Creatinine Ratio 30.7 H, Glucose 115 H, Calcium 8.7, Total Bilirubin 0.20, AST 15, ALT 31, Alkaline Phosphatase 85, Total Protein 7.9, Albumin 3.4, Globulin 4.5 H, Albumin/Globulin Ratio 0.8 L 06/30/21 16:30: Ethyl Alcohol 8.0 Physical Exam Narrative Seen and examined. Patient has history of seizure due to opioid withdrawal about a year ago. She continuously smokes and snorts fentanyl but denies IVDU recently or in the past. Has generalized skin superficial scab and abrasion due to picking. Mild aches and pain. Denies hallucination, delusion, weird dreams. Denies history of hepatitis C, HIV hepatitis B. Denies alcohol use General: Alert, Oriented x3, Cooperative HEENT: Atraumatic, PERRLA, EOMI, Normocephalic Oral: No Gingival or Mucosal Lesions/ Ulcerations Neck: Supple, No JVD, Negative Carotid Bruits Lungs: Air entry diminished in bilateral lung bases. No crepitation/rhonchi Cardiovascular: Regular rate, Regular Rhythm, Normal S1, Normal S2, No murmurs Abdomen: Bowel Sounds Present, Soft, Non Tender, Non-Distended : No renal angle tenderness. No suprapubic tenderness. 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 180 consultation. U tox positive for cocaine barbiturates and opioids. -Patient's plan is for discharge to a facility in [place] once stabilized Acute benzodiazepine withdrawal with history of chronic benzodiazepine use dependence and tolerance: Patient takes Xanax 10 to 12 g/day, 2 g tablets from the streets. On phenobarbitone taper. Polysubstance abuse -She admits that she uses illicit benzodiazepines, smokes fentanyl, smokes crack. Supportive medication History of iron deficiency anemia: H&H 12.7/39.1. Continue iron supplement Chronic Hepatitis C -Suspect patient is a chronic carrier. Recommend outpatient treatment for chronic otitis C. Multiple open wounds/scalp: Topical Bactroban. Possible MRSA colonization/carrier. MRSA nasal screen and from wound swab ordered -These are all a result of picking Tobacco abuse -Recommend cessation -Nicotine gum ordered DVT prophylaxis -Low risk -Early ambulation Charges/Coding Visit Charges Inpatient E&M: 32820 Subs Hosp L2
--- NOTE | 2021-07-01 14:57 | ADDICTION ---
This specification writer met with PT to conduct ASAM, MSE, AUDIT and DUDIT assessments and to plan for d/c. PT A+Ox4 and participated actively. All assessments completed and placed in PT's chart. PT plans to f/u with [facility] for follow-up treatment services. Mom will provide transportation post d/c from [facility].
--- NOTE | 2021-07-01 15:26 | ADDICTION ---
Mother will provide transportation. She will pick her up @9am on Monday07/02/21.
[2021-07-01] MEDS: Nicotine Polacrilex 2 MG GUM PO (18:38)
[2021-07-01 20:41] LABS: M R Staph aureus DNA By PCR POSITIVE (Negative); Probe Check PASS; Staph aureus DNA By PCR POSITIVE (Negative)
[2021-07-01 20:51] VITALS: BP 110/72; PULSE 73; RESP 16; TEMP 36.6; O2SAT 98
[2021-07-01] MEDS: traZODone 100 MG Tablet PO (21:31)
[2021-07-01] MEDS: Gabapentin 300 MG Capsule PO (21:31)
[2021-07-02] MEDS: Phenobarbital 32.4 MG Tablet 64.8 MG PO ×6 (01:43→22:46)
[2021-07-02 03:34] LABS: M R Staph aureus DNA By PCR POSITIVE (Negative); Probe Check PASS
[2021-07-02 04:00] VITALS: BP 102/56; PULSE 76; RESP 14; TEMP 36.4; O2SAT 96
[2021-07-02] MEDS: Buprenorphine HCl 2 MG TAB.SUBL SL ×3 (04:09→19:52)
--- NOTE | 2021-07-02 09:33 | PN.HOSP_ITS ---
Subjective Subjective No fever. Blood pressure is normal. Objective Data Objective Data Vital Signs: Vital Signs Temp Pulse Resp BP Pulse Ox 97.6 F L 76 14 102/56 L 96 07/02/21 04:00 07/02/21 04:00 07/02/21 04:00 07/02/21 04:00 07/02/21 04:00 Oxygen Delivery Method Room Air Weight: 102 lb 15.294 oz Body Mass Index (BMI) 19.4 Intake & Output: Intake and Output for Last 24 Hours 06/30/21 07/01/21 07/02/21 23:59 23:59 23:59 Intake Total 890 / 1090 200 / 200 Balance 890 / 1090 200 / 200 Medical Nutrition Assessment Dietitian: Malnutrition Criteria Met Start: 07/01/21 15:12 Freq: Status: Active Protocol: Document 07/01/21 15:45 RMA (Rec: 07/01/21 15:46 RMA [id number]) Nutrition Malnutrition Evidence of Malnutrition Exists Yes Malnutrition (severe): Social/Behavioral/ Environmental Evidenced By Suboptimal Energy Intake ( Severe),Weight Loss (Severe) Clinical Problem Acute Disease or Injury Related Malnutrition Etiology Severe protein-calorie malnutrition in the context of social circumstance related to drug abuse and inadequate oral intake Signs/Symptoms as evidenced by 32% wt loss x past 7-9 months, BMI 19.5, and PO meeting less than 50% estimated nutrition needs Status Active Problem Recommendation Dietitian Recommendations/Changes Continue regular diet and 120ml ensure enlive 4 times per day w/ medpass. Will add chocolate milkshake BID w/ lunch and dinner. Additional ONS as needed if PO declines at meals. Lab / Micro Data Result Diagrams: 06/30/21 16:30 06/30/21 16:30 Labs: Laboratory Results - last 24 hr 07/01/21 18:45: S.aureus Protein A PCR POSITIVE H, MRSA (PCR) POSITIVE H 07/02/21 01:45: MRSA (PCR) POSITIVE H Physical Exam Narrative Seen and examined. Patient having restlessness, nausea, sweating and anxiety. General: Alert, Oriented x3, Cooperative HEENT: Atraumatic, PERRLA, EOMI, Normocephalic Oral: No Gingival or Mucosal Lesions/ Ulcerations Neck: Supple, No JVD, Negative Carotid Bruits Lungs: Air entry diminished in bilateral lung bases. No crepitation/rhonchi Cardiovascular: Regular rate, Regular Rhythm, Normal S1, Normal S2, No murmurs Abdomen: Bowel Sounds Present, Soft, Non Tender, Non-Distended : No renal angle tenderness. No suprapubic tenderness. 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 Acute opiate withdrawal with history of chronic opioid use and dependence and tolerance: Patient on buprenorphine schedule and taper regimen along with other adjunctive medications on as-needed basis to control symptoms. 180 consultation. U tox positive for cocaine barbiturates and opioids. 07/02: Plan for inpatient drug rehab tomorrow. Patient is still having withdrawal symptoms. Acute benzodiazepine withdrawal with history of chronic benzodiazepine use de pendence and tolerance: Patient takes Xanax 10 to 12 g/day, 2 g tablets from the streets. On phenobarbitone taper. 07/02: Patient denies weird dream, hallucinations, seizure, delusions or fearful thoughts Polysubstance abuse -She admits that she uses illicit benzodiazepines, smokes fentanyl, smokes crack. Supportive medication History of iron deficiency anemia: H&H 12.7/39.1. Continue iron supplement Chronic Hepatitis C -Suspect patient is a chronic carrier. Recommend outpatient treatment for chronic otitis C. Multiple open wounds/scalp: Topical Bactroban. Possible MRSA colonization/ca rrier. MRSA nasal screen and from wound swab ordered -These are all a result of picking Tobacco abuse -Recommend cessation -Nicotine gum ordered DVT prophylaxis -Low risk -Early ambulation Charges/Coding Visit Charges Inpatient E&M: 70873 Subs Hosp L2
[2021-07-02] MEDS: Mupirocin Ointment 22gm Tube 1 APPLIC TOPICAL ×2 (09:53→22:45)
[2021-07-02] MEDS: Thiamine Hydrochloride 100 MG Tablet PO (09:53)
[2021-07-02] MEDS: Folic Acid 1 MG Tablet PO (09:53)
[2021-07-02] MEDS: Ferrous Sulfate 325 MG Tablet PO ×3 (09:53→17:27)
[2021-07-02 10:00] VITALS: BP 106/64; PULSE 86; RESP 16; TEMP 36.7; O2SAT 99
[2021-07-02] MEDS: Nicotine Polacrilex 2 MG GUM PO ×2 (10:04→17:27)
--- NOTE | 2021-07-02 12:33 | ADDICTION ---
This worker met with Pt today to discuss d/c planning and have a ZARIA signed for mother to coordinate services with [facility] once discharged.
[2021-07-02] MEDS: Dicyclomine 10 MG Capsule 20 MG PO (12:34)
[2021-07-02] MEDS: Gabapentin 300 MG Capsule PO ×2 (14:35→22:46)
[2021-07-02 16:00] VITALS: BP 122/74; PULSE 91; RESP 16; TEMP 36.6; O2SAT 99
[2021-07-02] MEDS: hydrOXYzine PAM 25 MG Capsule 50 MG PO (19:55)
[2021-07-02] MEDS: cloNIDine HCl 0.1 MG Tablet PO (19:55)
[2021-07-02 20:00] VITALS: BP 133/81; PULSE 98; RESP 16; TEMP 36.5; O2SAT 98
[2021-07-02] MEDS: traZODone 100 MG Tablet PO (22:46)
[2021-07-03] MEDS: Phenobarbital 32.4 MG Tablet 64.8 MG PO ×2 (02:37→08:00)
[2021-07-03] MEDS: Buprenorphine HCl 2 MG TAB.SUBL SL (06:50)
--- NOTE | 2021-07-03 09:00 | DS_ITS ---
DATE OF SERVICE [07/03/2021] DATE OF ADMISSION [06/30/2021] DATE OF DISCHARGE [07/03/2021] CONSULTATIONS [None] PROCEDURES PERFORMED [None] HOSPITAL COURSE This is a 36-year-old female with history of substance use was admitted with acute withdrawal syndrome off opioids and benzodiazepine mainly restlessness, tremors, abdominal pain, nausea and severe anxiety attack. Further hospital course as 1. Acute opiate withdrawal with history of chronic opioid use and dependence and tolerance: Patient on buprenorphine schedule and taper regimen along with other adjunctive medications on as-needed basis to control symptoms. 180 consultation. U tox positive for cocaine barbiturates and opioids. Her symptoms are controlled but not resolved. Patient is transferred to inpatient drug 2. Acute benzodiazepine withdrawal with history of chronic benzodiazepine use dependence and tolerance: Patient takes Xanax 10 to 12 g/day, 2 g tablets from the streets. On phenobarbitone taper.Patient denies weird dream, hallucinations, seizure, delusions or fearful thoughts 3. Polysubstance abuse -She admits that she uses illicit benzodiazepines, smokes fentanyl, smokes crack. Supportive medication 4. History of iron deficiency anemia: H&H 12.7/39.1. Continue iron supplement 5. Chronic Hepatitis C There is suspicion that patient is a chronic carrier. Recommend outpatient treatment for chronic otitis C. 6 multiple open wounds/scalp: Topical Bactroban. Possible MRSA colonization/carrier. MRSA nasal screen and from wound swab ordered -These are all a result of picking Tobacco abuse -Recommend cessation. Patient was treated with nicotine patch and gum during the hospital course DVT prophylaxis -Low risk. Early ambulation Discharge medication reconciliation done. Discharge follow-up instructions completed. Discharge process discussed with the patient and all questions were answered to patient's satisfaction. Discharged to inpatient drug rehab. Prescriptions were given for folic acid, thiamine, and mupirocin ointment. Total time spent, exact 35 minutes on discharge meds reconciliation, examination, coordination of care with nurses and ancillary staff, review of imaging and blood test and discussion with the patient on follow-up instructions Seen and examined on the day of discharge. Patient does not have tremors but he still has anxiety and restlessness. No hallucinations, delusions or seizure. Physical exam: General: Alert, Oriented x3, Cooperative HEENT: Atraumatic, PERRLA, EOMI, Normocephalic Oral: No Gingival or Mucosal Lesions/ Ulcerations Neck: Supple, No JVD, Negative Carotid Bruits Lungs: Air entry diminished in bilateral lung bases. No crepitation/rhonchi Cardiovascular: Regular rate, Regular Rhythm, Normal S1, Normal S2, No murmurs Abdomen: Bowel Sounds Present, Soft, Non Tender, Non-Distended : No renal angle tenderness. No suprapubic tenderness. 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 Please see hospital course above] Billing Charge [id number]
== END 2021-07-03 09:00 | disposition home or self-care (01) | DRG 773 ==
LOC: ED 17:08 → MS3 17:37
PROVIDERS: Admitting Provider Internal Medicine; Emergency Provider Emergency Medicine; Visit Provider Internal Medicine
DX: F11.23 Opioid dependence with withdrawal (principal); B18.2 Chronic viral hepatitis C; F14.10 Cocaine abuse, uncomplicated; D50.9 Iron deficiency anemia, unspecified; F17.210 Nicotine dependence, cigarettes, uncomplicated; F13.231 Sedative, hypnotic or anxiolytic dependence with withdrawal delirium; S01.00XA Unspecified open wound of scalp, initial encounter; F41.9 Anxiety disorder, unspecified; Z22.322 Carrier or suspected carrier of Methicillin resistant Staphylococcus aureus
CPT/HCPCS: 80053; 80307; 82077; 85025; 87640; 87641; 97802; 99251; 99281; 99406; G0463